=== PATIENT | male | born 1950 | race Caucasian/White ===

== ENCOUNTER 2017-01-18 22:55 | Emergency (ER) | payer MEDICARE, MEDICAID ==
[~2017-01-18] VITALS: Ht 180.3 cm; Wt 83.9 kg
[~2017-01-18 22:55] MED LIST: AZELASTINE137 MCG/A1 NS; FAMOTIDINE20 M1 PO; NAPROSYN500 MG PO; NISOLDIPINE40 MG PO; OXYCODONE HCL30 MG PO; PAROXETINE HCL40 MG PO
[2017-01-18 23:20] LABS: BASO % 0.3 % (0.0-1.0); EOS # 0.2 10*3/uL (0.0-0.4); EOS % 2.4 % (1.0-4.0); HEMATOCRIT 35.2 % (42.0-52.0); HEMOGLOBIN 11.7 g/dl (14.0-18.0); LYMPH # 1.6 10*3/uL (1.3-4.4); LYMPH % 25.3 % (27.0-41.0); MEAN CELL VOLUME 77.4 fl (80.0-94.0); MEAN CORPUSCULAR HGB 25.7 pg (27.0-31.0); MEAN CORPUSCULAR HGB CONC 33.2 g/dl (33.0-37.0); MEAN PLATELET VOLUME 8.6 fl (9.6-12.3); MONO # 0.4 10*3/uL (0.1-1.0); MONO % 6.1 % (3.0-9.0); NEUT # 4.1 10*3/uL (2.3-7.9); NEUT % 65.7 % (47.0-73.0); PLATELET COUNT AUTOMATED 171 10*3/uL (130-400); RED BLOOD COUNT 4.55 10*6/uL (4.50-5.90); WHITE BLOOD COUNT 6.2 10*3/uL (4.8-10.8)
[2017-01-18 23:35] LABS: INTERNATIONAL NORM RATIO 1.1 (2.0-3.5); PROTHROMBIN TIME 11.5 SECONDS (9.0-12.4)
[2017-01-18 23:36] LABS: ALBUMIN 3.9 gm/dl (3.1-4.5); ALKALINE PHOSPHATASE 74 U/L (45-117); BILIRUBIN, TOTAL 0.8 mg/dl (0.2-1.0); BUN 14 mg/dl (7-24); CARBON DIOXIDE 28 mmol/L (21-32); CHLORIDE 106 mmol/L (98-107); EST GLOM FILT AFRICAN AMERICAN 59 ml/min; GLUCOSE 129 mg/dL (65-99); MAGNESIUM 2.3 mg/dL (1.5-2.1); POTASSIUM 3.6 mmol/L (3.5-5.1); SGOT/AST 12 IU/L (3-35); SGPT/ALT 15 U/L (12-78); SODIUM 144 mmol/L (136-145); TOTAL PROTEIN 6.8 gm/dL (6.4-8.2)
[2017-01-18 23:39] LABS: TROPONIN I < 0.015 ng/ml (<0.045)
== END 2017-01-19 01:58 | disposition home or self-care (01) ==
LOC: ED 22:55
PROVIDERS: Emergency Medicine Emergency Medical Services
DX: K21.0 Gastro-esophageal reflux disease with esophagitis (principal); Z88.6 Allergy status to analgesic agent; Z88.8 Allergy status to other drugs, medicaments and biological substances; Z79.899 Other long term (current) drug therapy

== ENCOUNTER 2017-02-01 20:45 | Emergency (ER) | payer MEDICARE, MEDICAID ==
[~2017-02-01] VITALS: Ht 180.3 cm; Wt 84.8 kg
[2017-02-01] MEDS ORDERED: DEXILANT60 M1 PO (21:13)
[2017-02-01] MEDS ORDERED: ATIVAN1 MG PO (21:13)
[2017-02-01 21:52] LABS: BASO % 0.7 % (0.0-1.0); EOS # 0.2 10*3/uL (0.0-0.4); EOS % 3.4 % (1.0-4.0); HEMOGLOBIN 11.5 g/dl (14.0-18.0); LYMPH # 1.9 10*3/uL (1.3-4.4); LYMPH % 31.8 % (27.0-41.0); MEAN CELL VOLUME 77.8 fl (80.0-94.0); MEAN CORPUSCULAR HGB 25.6 pg (27.0-31.0); MEAN CORPUSCULAR HGB CONC 32.9 g/dl (33.0-37.0); MEAN PLATELET VOLUME 8.6 fl (9.6-12.3); MONO # 0.5 10*3/uL (0.1-1.0); MONO % 7.7 % (3.0-9.0); NEUT # 3.3 10*3/uL (2.3-7.9); NEUT % 56.1 % (47.0-73.0); PLATELET COUNT AUTOMATED 196 10*3/uL (130-400); RED CELL DISTRI WIDTH 13.8 % (0-14.5)
[2017-02-01 22:09] LABS: ALBUMIN 3.6 gm/dl (3.1-4.5); ALKALINE PHOSPHATASE 82 U/L (45-117); BILIRUBIN, TOTAL 0.5 mg/dl (0.2-1.0); BUN 14 mg/dl (7-24); CARBON DIOXIDE 28 mmol/L (21-32); CHLORIDE 107 mmol/L (98-107); EST GLOM FILT AFRICAN AMERICAN > 60 ml/min; GLUCOSE 95 mg/dL (65-99); POTASSIUM 4.2 mmol/L (3.5-5.1); SGOT/AST 13 IU/L (3-35); SGPT/ALT 19 U/L (12-78); SODIUM 144 mmol/L (136-145)
[2017-02-01 22:11] LABS: TROPONIN I < 0.015 ng/ml (<0.045)
[2017-02-01] MEDS ORDERED: PROTONIX40 MG PO (23:20)
== END 2017-02-01 23:33 | disposition home or self-care (01) ==
LOC: ED 20:45
PROVIDERS: Emergency Medicine Emergency Medical Services
DX: K21.9 Gastro-esophageal reflux disease without esophagitis (principal); Z88.6 Allergy status to analgesic agent; Z88.8 Allergy status to other drugs, medicaments and biological substances

== ENCOUNTER 2017-02-04 10:49 | Emergency (ER) | payer MEDICARE, MEDICAID ==
[~2017-02-04] VITALS: Ht 154.9 cm; Wt 86.2 kg
[~2017-02-04 10:49] MED LIST changes: +ATIVAN1 MG PO; +DEXILANT60 M1 PO; +PROTONIX40 MG PO
[2017-02-04 11:58] LABS: BASO % 0.4 % (0.0-1.0); EOS # 0.2 10*3/uL (0.0-0.4); HEMATOCRIT 37.1 % (42.0-52.0); HEMOGLOBIN 12.2 g/dl (14.0-18.0); LYMPH # 1.9 10*3/uL (1.3-4.4); LYMPH % 19.1 % (27.0-41.0); MEAN CELL VOLUME 77.9 fl (80.0-94.0); MEAN CORPUSCULAR HGB 25.6 pg (27.0-31.0); MEAN CORPUSCULAR HGB CONC 32.9 g/dl (33.0-37.0); MEAN PLATELET VOLUME 8.5 fl (9.6-12.3); MONO # 0.8 10*3/uL (0.1-1.0); MONO % 7.9 % (3.0-9.0); NEUT # 6.9 10*3/uL (2.3-7.9); NEUT % 70.3 % (47.0-73.0); PLATELET COUNT AUTOMATED 187 10*3/uL (130-400); RED BLOOD COUNT 4.76 10*6/uL (4.50-5.90); RED CELL DISTRI WIDTH 13.9 % (0-14.5); WHITE BLOOD COUNT 9.8 10*3/uL (4.8-10.8)
[2017-02-04 12:14] LABS: ALBUMIN 3.8 gm/dl (3.1-4.5); ALKALINE PHOSPHATASE 86 U/L (45-117); BILIRUBIN, TOTAL 0.8 mg/dl (0.2-1.0); BUN 14 mg/dl (7-24); C-REACTIVE PROTEIN 3.28 MG/DL (0-0.3); CARBON DIOXIDE 27 mmol/L (21-32); CHLORIDE 107 mmol/L (98-107); CKMB 1.4 ng/ml (0.5-3.6); CPK 78 U/L (39-308); EST GLOM FILT AFRICAN AMERICAN > 60 ml/min; GLUCOSE 96 mg/dL (65-99); MAGNESIUM 2.5 mg/dL (1.5-2.1); POTASSIUM 3.9 mmol/L (3.5-5.1); SGOT/AST 13 IU/L (3-35); SGPT/ALT 18 U/L (12-78); SODIUM 143 mmol/L (136-145); TOTAL PROTEIN 7.2 gm/dL (6.4-8.2)
[2017-02-04 12:15] LABS: TROPONIN I < 0.015 ng/ml (<0.045)
[2017-02-04] MEDS ORDERED: PREDNISONE20 M1 PO (15:14)
[2017-02-04] MEDS ORDERED: PEPCID20 MG PO (15:14)
[2017-02-04] MEDS ORDERED: ZITHROMAX250 MG PO (15:14)
== END 2017-02-04 15:20 | disposition home or self-care (01) ==
LOC: ED 10:49
PROVIDERS: Emergency Medicine
DX: S86.912A Strain of unspecified muscle(s) and tendon(s) at lower leg level, left leg, initial encounter (principal); J20.9 Acute bronchitis, unspecified; K21.9 Gastro-esophageal reflux disease without esophagitis; Z88.6 Allergy status to analgesic agent; Z88.8 Allergy status to other drugs, medicaments and biological substances; Z79.899 Other long term (current) drug therapy; X58.XXXA Exposure to other specified factors, initial encounter; Y93.89 Activity, other specified; Y92.9 Unspecified place or not applicable; Y99.9 Unspecified external cause status

== ENCOUNTER 2017-02-19 15:02 | Emergency (ER) | payer MEDICARE, MEDICAID ==
[~2017-02-19] VITALS: Wt 84.8 kg
[~2017-02-19 15:02] MED LIST changes: +PEPCID20 MG PO; +PREDNISONE20 M1 PO; +ZITHROMAX250 MG PO
[2017-02-19] MEDS ORDERED: GABAPENTIN100 M2 PO (15:20)
[2017-02-19] MEDS ORDERED: OMEPRAZOLE40 MG PO (15:20)
[2017-02-19] MEDS ORDERED: METOCLOPRAMIDE5 MG PO (15:20)
[2017-02-19 15:45] LABS: BASO % 0.6 % (0.0-1.0); EOS # 0.2 10*3/uL (0.0-0.4); EOS % 3.5 % (1.0-4.0); HEMATOCRIT 36.6 % (42.0-52.0); HEMOGLOBIN 12.3 g/dl (14.0-18.0); LYMPH # 1.7 10*3/uL (1.3-4.4); LYMPH % 27.1 % (27.0-41.0); MEAN CELL VOLUME 76.4 fl (80.0-94.0); MEAN CORPUSCULAR HGB 25.7 pg (27.0-31.0); MEAN CORPUSCULAR HGB CONC 33.6 g/dl (33.0-37.0); MEAN PLATELET VOLUME 8.5 fl (9.6-12.3); MONO # 0.5 10*3/uL (0.1-1.0); MONO % 7.7 % (3.0-9.0); NEUT # 3.8 10*3/uL (2.3-7.9); NEUT % 60.9 % (47.0-73.0); PLATELET COUNT AUTOMATED 184 10*3/uL (130-400); RED BLOOD COUNT 4.79 10*6/uL (4.50-5.90); RED CELL DISTRI WIDTH 13.5 % (0-14.5); WHITE BLOOD COUNT 6.2 10*3/uL (4.8-10.8)
[2017-02-19 16:02] LABS: ALBUMIN 3.8 gm/dl (3.1-4.5); ALKALINE PHOSPHATASE 76 U/L (45-117); BILIRUBIN, TOTAL 0.7 mg/dl (0.2-1.0); BUN 9 mg/dl (7-24); CARBON DIOXIDE 27 mmol/L (21-32); CHLORIDE 105 mmol/L (98-107); EST GLOM FILT AFRICAN AMERICAN > 60 ml/min; GLUCOSE 89 mg/dL (65-99); POTASSIUM 3.6 mmol/L (3.5-5.1); SGOT/AST 17 IU/L (3-35); SGPT/ALT 18 U/L (12-78); SODIUM 140 mmol/L (136-145); TOTAL PROTEIN 7.1 gm/dL (6.4-8.2)
[2017-02-19 16:04] LABS: TROPONIN I < 0.015 ng/ml (<0.045)
== END 2017-02-19 17:15 | disposition home or self-care (01) ==
LOC: ED 15:02
PROVIDERS: Physician Assistant
DX: R10.13 Epigastric pain (principal); K21.9 Gastro-esophageal reflux disease without esophagitis; R11.0 Nausea; Z88.6 Allergy status to analgesic agent; Z88.8 Allergy status to other drugs, medicaments and biological substances; Z79.899 Other long term (current) drug therapy

== ENCOUNTER 2017-02-25 20:23 | Emergency (ER) | payer MEDICARE, MEDICAID ==
[~2017-02-25] VITALS: Ht 180.3 cm; Wt 84.8 kg
[~2017-02-25 20:23] MED LIST changes: +GABAPENTIN100 M2 PO; +METOCLOPRAMIDE5 MG PO; +OMEPRAZOLE40 MG PO
[2017-02-25 21:03] LABS: BASO % 0.7 % (0.0-1.0); EOS # 0.2 10*3/uL (0.0-0.4); EOS % 4.2 % (1.0-4.0); HEMATOCRIT 36.9 % (42.0-52.0); HEMOGLOBIN 12.2 g/dl (14.0-18.0); LYMPH # 1.7 10*3/uL (1.3-4.4); LYMPH % 30.1 % (27.0-41.0); MEAN CELL VOLUME 77.7 fl (80.0-94.0); MEAN CORPUSCULAR HGB 25.7 pg (27.0-31.0); MEAN CORPUSCULAR HGB CONC 33.1 g/dl (33.0-37.0); MEAN PLATELET VOLUME 8.4 fl (9.6-12.3); MONO # 0.5 10*3/uL (0.1-1.0); MONO % 8.2 % (3.0-9.0); NEUT # 3.3 10*3/uL (2.3-7.9); NEUT % 56.6 % (47.0-73.0); PLATELET COUNT AUTOMATED 174 10*3/uL (130-400); RED BLOOD COUNT 4.75 10*6/uL (4.50-5.90); RED CELL DISTRI WIDTH 13.7 % (0-14.5); WHITE BLOOD COUNT 5.8 10*3/uL (4.8-10.8)
[2017-02-25 21:18] LABS: BILIRUBIN 1+ (NEGATIVE); BLOOD NEGATIVE (NEGATIVE); CLARITY SL CLOUDY (CLEAR); COLOR YELLOW (YELLOW); GLUCOSE NEGATIVE (NEGATIVE); KETONE TRACE (NEGATIVE); LEUKO ESTERASE NEGATIVE (NEGATIVE); NITRITE NEGATIVE (NEGATIVE); PH 5.5 (5.0-9.0); PROTEIN TRACE (NEGATIVE); SPECIFIC GRAVITY 1.025 (1.005-1.030)
[2017-02-25 21:18] LABS: ALBUMIN 3.6 gm/dl (3.1-4.5); BILIRUBIN, TOTAL 0.5 mg/dl (0.2-1.0)
[2017-02-25 21:24] LABS: HYALINE CAST 51-100
[2017-02-25 21:25] LABS: BACTERIA TRACE; EPITHELIAL CELLS 0-2; RBC 0-2 rbc/hpf (0-2); URINE REFLEX COMMENT NO (NO); WBC 0-2 wbc/hpf (0-5)
== END 2017-02-25 23:51 | disposition home or self-care (01) ==
LOC: ED 20:23
PROVIDERS: Physician Assistant
DX: M25.462 Effusion, left knee (principal); K21.9 Gastro-esophageal reflux disease without esophagitis; Z88.6 Allergy status to analgesic agent; Z88.8 Allergy status to other drugs, medicaments and biological substances; Z79.899 Other long term (current) drug therapy

== ENCOUNTER 2017-03-09 18:10 | Emergency (ER) | payer MEDICARE, MEDICAID ==
[~2017-03-09] VITALS: Wt 83.9 kg
[2017-03-09 18:41] LABS: BILIRUBIN NEGATIVE (NEGATIVE); BLOOD NEGATIVE (NEGATIVE); CLARITY CLEAR (CLEAR); COLOR YELLOW (YELLOW); GLUCOSE NEGATIVE (NEGATIVE); KETONE NEGATIVE (NEGATIVE); LEUKO ESTERASE NEGATIVE (NEGATIVE); NITRITE NEGATIVE (NEGATIVE); PROTEIN NEGATIVE (NEGATIVE); SPECIFIC GRAVITY 1.015 (1.005-1.030)
[2017-03-09 18:52] LABS: BACTERIA TRACE; HYALINE CAST 41-50; MUCOUS 1+
[2017-03-09 18:53] LABS: EPITHELIAL CELLS 0-2; URINE REFLEX COMMENT NO (NO); WBC 0-2 wbc/hpf (0-5)
[2017-03-09] MEDS ORDERED: NAPROSYN500 MG PO (19:04)
== END 2017-03-09 19:10 | disposition home or self-care (01) ==
LOC: ED 18:10
PROVIDERS: Physician Assistant
DX: M70.22 Olecranon bursitis, left elbow (principal); Z79.899 Other long term (current) drug therapy; Z88.6 Allergy status to analgesic agent; Z88.8 Allergy status to other drugs, medicaments and biological substances

== ENCOUNTER 2017-03-13 17:22 | Inpatient (IN) | payer MEDICARE, MEDICAID ==
[~2017-03-13] VITALS: Ht 180.3 cm; Wt 83.2 kg
--- NOTE | ~2017-03-13 | CON ---
[place], [place] REPORT OF CONSULTATION [id number] UN[facility] #: [id number] ROOM: 424 DOCTOR: DARIA QURESHI MD BIRTHDATE: [birth year] DOS: 03/14/2017 REASON FOR CONSULTATION: Assess the patient's ongoing acute respiratory complaints. HISTORY OF PRESENT ILLNESS: This is a 66-year-old white male who has been seen in the office recently for assessment of nonresolving cough, was diagnosed with cough variant bronchial asthma. The patient was seen in the office on 03/02/2017, started on inhaled corticosteroids and bronchodilators. The patient came in to the hospital and has been hospitalized under the Hospitalist services on 03/13/2017. The patient reported symptoms of having fever and chills. The patient denies any symptoms of chest pain. He does have a cough, which was still noted with some sputum expectoration. The patient also complained of sinus drainage with current symptoms as well. He denies symptoms of hemoptysis. REVIEW OF SYSTEMS: CONSTITUTIONAL: There were no symptoms of fatigue or tiredness. Fever or chills. EYES: Denies any burning, redness, or tenderness. EARS, NOSE, AND THROAT: No sore throat, hoarseness, otalgia, or postnasal drainage. CARDIOVASCULAR: Denies anginal pain, edema, or pain of the lower extremities. GASTROINTESTINAL: Denies dysphagia, nausea, vomiting, diarrhea, abdominal pain, hematemesis, melena, or hematochezia. SKIN: Denies lesions or rashes. CENTRAL NERVOUS SYSTEM: Denies dizziness, headache, diplopia, or syncopal episodes. Remaining systems were reviewed with the patient, they were noted all negative. PAST MEDICAL HISTORY: 1. History of vitamin D deficiency. 2. Essential hypertension. 3. Cough variant bronchial asthma. SOCIAL HISTORY: The patient is , has 2 children. The patient was noted tobacco use at 22 years old, 1/4 pack of cigarettes per day until 1969. He does have an occupation-related pulmonary exposure history. SURGICAL HISTORY: Noted with knee arthroscopy bilaterally. FAMILY HISTORY: Father at age 4848 years old, complications of myocardial infarction. The patient's mother at age 7878 years old from complications related to COPD. HOME MEDICATIONS: Listed at the time of admission noted use of: 1. QVAR 40 mcg 2 inhalations b.i.d. 2. OxyContin 30 mg t.i.d. p.r.n. for pain. 3. Reglan 7.5 mg p.o. daily. 4. Neurontin 100 mg p.o. daily. 5. Ventolin p.r.n. use. [place], [place] REPORT OF CONSULTATION NAME: RODNEY MONCADA UNIT #: [id number] ROOM: [facility] DOCTOR: ALHAJI BERMUDEZ MD,[facility] BIRTHDATE: [birth year] 6. Dexilant 60 mg daily. 7. Lorazepam 1 mg p.o. t.i.d. p.r.n. for anxiety. 8. Paxil 20 mg daily. 9. Nifedipine 40 mg p.o. daily. PHYSICAL EXAMINATION: GENERAL: This is a 66-year-old white male who has been noted currently awake and alert without any acute distress. The patient's height was recorded by the nursing staff at the time of admission with height of 5 feet 11 inches, weight of 183 pounds, BMI 25.5. VITAL SIGNS: Show a normal temperature, respiratory rate of 18-20, heart rate 97-77, and blood pressure 168/87-144/72. Intake 360, output not recorded. Pulse oxygen saturation was 99% HEENT: Shows head was atraumatic. Eyes nonicterus. NECK: Supple. CARDIOVASCULAR: S1, S2 audible. LUNGS: Show moderate decreased breath sounds noted in the lungs bilaterally. LABORATORY DATA: Chest x-ray of the patient that was done on current admission was noted without any active disease. BMP that was done this morning was noted as potassium 3.4, remaining electrolytes grossly normal. CBC this morning, WBC count 10.5, hemoglobin 10.2, hematocrit 31.2, and platelet count 191,000. PT/PTT was noted as normal today. Vitamin D noted severely decreased at 10.5 with normal vitamin B12 and folic acid. IMPRESSION: 1. The patient who has been currently admitted to the hospital with noted symptoms of fevers, chills, coughing, and acute bronchitis. There was no evidence of clinical radiologic pneumonia. 2. History of gastroesophageal reflux. 3. Cough variant bronchial asthma. 4. Acute anxiety and depression. 5. Past history of tobacco use. PLAN OF TREATMENT: Monitor culture results. Order serology assessment as well with nasopharyngeal washings. Continue bronchodilators as well. Home medications have been resumed including use of the inhaled corticosteroids. Continue current antibiotic for the medical management of acute tracheobronchitis, community-acquired infection. Usual care, other supportive therapy, plan of management. Change in treatment will be done based on the progression of the illness. [place], [place] REPORT OF CONSULTATION NAME: RODNEY MONCADA UNIT #: [id number] ROOM: [facility] DOCTOR: DARIA QURESHI MD BIRTHDATE: [birth year] DARIA MANE MD CM:CONSTR:REPORT OF CONSULTATION 1417 03/14/17 1709 interface
[2017-03-13 17:32] VITALS: BP 142/72
[2017-03-13 18:13] LABS: BASO # 0.1 10*3/uL (0.0-0.1); BASO % 0.3 % (0.0-1.0); EOS # 0.2 10*3/uL (0.0-0.4); HEMATOCRIT 34.6 % (42.0-52.0); HEMOGLOBIN 11.9 g/dl (14.0-18.0); IG # 0.1 10*3/uL (0.0-0.1); LYMPH # 1.6 10*3/uL (1.3-4.4); LYMPH % 9.2 % (27.0-41.0); MEAN CELL VOLUME 76.5 fl (80.0-94.0); MEAN CORPUSCULAR HGB 26.3 pg (27.0-31.0); MEAN CORPUSCULAR HGB CONC 34.4 g/dl (33.0-37.0); MEAN PLATELET VOLUME 8.1 fl (9.6-12.3); MONO # 0.9 10*3/uL (0.1-1.0); MONO % 5.4 % (3.0-9.0); NEUT # 14.5 10*3/uL (2.3-7.9); NEUT % 83.7 % (47.0-73.0); PLATELET COUNT AUTOMATED 184 10*3/uL (130-400); RED BLOOD COUNT 4.52 10*6/uL (4.50-5.90); RED CELL DISTRI WIDTH 13.2 % (0-14.5); WHITE BLOOD COUNT 17.3 10*3/uL (4.8-10.8)
[2017-03-13 18:32] LABS: ALBUMIN 3.5 gm/dl (3.1-4.5); ALKALINE PHOSPHATASE 89 U/L (45-117); BUN 10 mg/dl (7-24); CARBON DIOXIDE 28 mmol/L (21-32); CHLORIDE 104 mmol/L (98-107); EST GLOM FILT AFRICAN AMERICAN > 60 ml/min; GLUCOSE 94 mg/dL (65-99); POTASSIUM 3.4 mmol/L (3.5-5.1); SGOT/AST 11 IU/L (3-35); SGPT/ALT 13 U/L (12-78); SODIUM 138 mmol/L (136-145); TOTAL PROTEIN 6.9 gm/dL (6.4-8.2)
[2017-03-13 20:24] VITALS: BP 150/81
[2017-03-13 21:32] VITALS: BP 163/79
[2017-03-13] MEDS ORDERED: NISOLDIPINE40 MG PO (21:40)
[2017-03-13] MEDS ORDERED: QVAR8.7 GM INH (21:43)
[2017-03-13] MEDS ORDERED: PAROXETINE40 MG PO (21:44)
[2017-03-14] VITALS: BP 168/87
[2017-03-14 05:14] LABS: BUN 12 mg/dl (7-24); CARBON DIOXIDE 28 mmol/L (21-32); CHLORIDE 110 mmol/L (98-107); CHOLESTEROL 121 mg/dL (<200); EST GLOM FILT AFRICAN AMERICAN > 60 ml/min; FREE T4 1.13 ng/dl (0.76-1.46); GLUCOSE 105 mg/dL (65-99); HDL CHOLESTEROL 42 mg/dl (40-60); LDL CHOLESTEROL 52 mg/dL (9-159); MAGNESIUM 2.2 mg/dL (1.5-2.1); PHOSPHOROUS 3.3 mg/dL (2.5-4.9); POTASSIUM 3.4 mmol/L (3.5-5.1); SODIUM 144 mmol/L (136-145); TRIGLYCERIDES 133 mg/dl (<150); VLDL CHOLESTEROL 27 mg/dL (6-40)
[2017-03-14 05:20] LABS: THYROID STIM HORMONE (HS) 0.513 uIU/ml (0.358-4.75)
[2017-03-14 05:41] LABS: HEMOGLOBIN A1c 5.2 % (4.8-5.6)
[2017-03-14 06:05] LABS: BASO % 0.3 % (0.0-1.0); EOS # 0.2 10*3/uL (0.0-0.4); EOS % 1.4 % (1.0-4.0); HEMATOCRIT 31.2 % (42.0-52.0); HEMOGLOBIN 10.2 g/dl (14.0-18.0); LYMPH # 1.6 10*3/uL (1.3-4.4); LYMPH % 15.5 % (27.0-41.0); MEAN CELL VOLUME 78.8 fl (80.0-94.0); MEAN CORPUSCULAR HGB 25.8 pg (27.0-31.0); MEAN CORPUSCULAR HGB CONC 32.7 g/dl (33.0-37.0); MEAN PLATELET VOLUME 8.8 fl (9.6-12.3); MONO # 0.6 10*3/uL (0.1-1.0); MONO % 5.5 % (3.0-9.0); NEUT % 76.9 % (47.0-73.0); PLATELET COUNT AUTOMATED 191 10*3/uL (130-400); RED BLOOD COUNT 3.96 10*6/uL (4.50-5.90); RED CELL DISTRI WIDTH 13.3 % (0-14.5); WHITE BLOOD COUNT 10.5 10*3/uL (4.8-10.8)
[2017-03-14 06:16] LABS: INTERNATIONAL NORM RATIO 1.2 (2.0-3.5); PROTHROMBIN TIME 12.3 SECONDS (9.0-12.4)
[2017-03-14 06:21] LABS: VITAMIN D, 25-HYDROXY 10.5 ng/mL (30-100)
[2017-03-14 06:22] LABS: FOLIC ACID 6.35 ng/mL (>5.38)
[2017-03-14 08:00] VITALS: BP 158/67
[2017-03-14 12:00] VITALS: BP 150/79
[2017-03-14 16:00] VITALS: BP 169/74
[2017-03-14 20:00] VITALS: BP 150/73
== END 2017-03-14 22:16 | disposition left against medical advice (07) | DRG 202 ==
LOC: ED 17:22 → 4E 19:34 → EDHOLD 19:34 → 4E 19:44
PROVIDERS: Internal Medicine; Physician Assistant
DX: J20.9 Acute bronchitis, unspecified (principal); J45.901 Unspecified asthma with (acute) exacerbation; E83.51 Hypocalcemia; J45.991 Cough variant asthma; D50.9 Iron deficiency anemia, unspecified; E87.6 Hypokalemia; F32.9 Major depressive disorder, single episode, unspecified; F41.9 Anxiety disorder, unspecified; Z53.21 Procedure and treatment not carried out due to patient leaving prior to being seen by health care provider; K21.9 Gastro-esophageal reflux disease without esophagitis; Z88.6 Allergy status to analgesic agent; Z88.8 Allergy status to other drugs, medicaments and biological substances; Z83.6 Family history of other diseases of the respiratory system; Z82.49 Family history of ischemic heart disease and other diseases of the circulatory system; Z79.899 Other long term (current) drug therapy

== ENCOUNTER 2017-04-12 10:42 | Inpatient (IN) | payer MEDICARE, MEDICAID ==
[~2017-04-12] VITALS: Ht 175.2 cm; Wt 83.9 kg
--- NOTE | ~2017-04-12 | EKG ---
[place], [place] ELECTROCARDIOGRAM REPORT NAME: RODNEY MONCADA UNIT #: [id number] ROOM: 506 DOCTOR: ALHAJI BERMUDEZ MD,DARIA BIRTHDATE: [birth year] DOS: 04/12/2017 The electrocardiogram done on 04/12/2017 at 11:13 am. Mild sinus bradycardia noted with heart rate of 54 beats per minute. No changes of ischemia were noted. DARIA MANE MD CM:EKGRPT:ELECTROCARDIOGRAM REPORT 1214 1240 DARIA BERMUDEZ MD
[~2017-04-12 10:42] MED LIST changes: +PAROXETINE40 MG PO; +QVAR8.7 GM INH
[2017-04-12 10:51] VITALS: BP 174/77
[2017-04-12 11:16] LABS: BASO % 0.4 % (0.0-1.0); EOS # 0.3 10*3/uL (0.0-0.4); EOS % 3.9 % (1.0-4.0); HEMATOCRIT 32.5 % (42.0-52.0); HEMOGLOBIN 10.5 g/dl (14.0-18.0); LYMPH # 2.4 10*3/uL (1.3-4.4); MEAN CELL VOLUME 77.6 fl (80.0-94.0); MEAN CORPUSCULAR HGB 25.1 pg (27.0-31.0); MEAN CORPUSCULAR HGB CONC 32.3 g/dl (33.0-37.0); MEAN PLATELET VOLUME 8.2 fl (9.6-12.3); MONO # 0.7 10*3/uL (0.1-1.0); MONO % 8.9 % (3.0-9.0); NEUT # 4.1 10*3/uL (2.3-7.9); NEUT % 54.3 % (47.0-73.0); PLATELET COUNT AUTOMATED 156 10*3/uL (130-400); RED BLOOD COUNT 4.19 10*6/uL (4.50-5.90); RED CELL DISTRI WIDTH 13.2 % (0-14.5); WHITE BLOOD COUNT 7.5 10*3/uL (4.8-10.8)
[2017-04-12 11:24] LABS: INTERNATIONAL NORM RATIO 1.1 (2.0-3.5)
[2017-04-12 11:31] LABS: ALBUMIN 3.4 gm/dl (3.1-4.5); ALKALINE PHOSPHATASE 79 U/L (45-117); BUN 13 mg/dl (7-24); CHLORIDE 105 mmol/L (98-107); CKMB 1.1 ng/ml (0.5-3.6); CPK 47 U/L (39-308); CREATININE 1.02 mg/dL (0.70-1.30); LIPASE 188 U/L (73-393); MAGNESIUM 2.4 mg/dL (1.5-2.1); POTASSIUM 3.4 mmol/L (3.5-5.1); SGOT/AST 10 IU/L (3-35); SGPT/ALT 12 U/L (12-78); SODIUM 140 mmol/L (136-145); TOTAL PROTEIN 6.4 gm/dL (6.4-8.2)
[2017-04-12 11:32] LABS: ETHYL ALCOHOL < 3.0 mg/dl (<3); TROPONIN I < 0.015 ng/ml (<0.045)
--- NOTE | 2017-04-12 11:59 | NUR ---
PT STATES HAS AHD SOME RELIEF AFTER GI COCKTAIL.
[2017-04-12 12:38] VITALS: BP 130/81
--- NOTE | 2017-04-12 13:01 | NUR ---
Time: 1300 A 66 year old MALE admitted to 5E under services of DAVE PEREZ DO. Pt. arrived via bed from ER. Chief complaint: ACID REFLUX, ILEUS. DENNIS SHUKLA
--- NOTE | 2017-04-12 13:07 | NUR ---
PATIENT LEFT AGAINST MEDICAL ADVICE AT THIS TIME. TECHNICAL CLERK NOTIFIED. NOTIFIED. HEPLOCK REMOVED. PT AMBULATORY OFF FLOOR. DENNIS SHUKLA
== END 2017-04-12 13:07 | disposition left against medical advice (07) | DRG 390 ==
LOC: ED 10:42 → EDHOLD 12:20 → 5E 12:28
PROVIDERS: Internal Medicine; ADMIT Emergency Medicine
DX: K56.7 Ileus, unspecified (principal); I10 Essential (primary) hypertension; K21.9 Gastro-esophageal reflux disease without esophagitis; Z53.21 Procedure and treatment not carried out due to patient leaving prior to being seen by health care provider; Z88.5 Allergy status to narcotic agent; Z88.8 Allergy status to other drugs, medicaments and biological substances; Z79.899 Other long term (current) drug therapy; Z72.89 Other problems related to lifestyle; Z82.49 Family history of ischemic heart disease and other diseases of the circulatory system; Z83.6 Family history of other diseases of the respiratory system

== ENCOUNTER 2017-04-22 01:56 | Emergency (ER) | payer MEDICARE, MEDICAID ==
[~2017-04-22] VITALS: Ht 180.3 cm; Wt 83.9 kg
[2017-04-22 02:27] LABS: BASO % 0.5 % (0.0-1.0); EOS # 0.2 10*3/uL (0.0-0.4); EOS % 5.9 % (1.0-4.0); HEMATOCRIT 29.6 % (42.0-52.0); HEMOGLOBIN 9.8 g/dl (14.0-18.0); LYMPH # 1.5 10*3/uL (1.3-4.4); LYMPH % 39.2 % (27.0-41.0); MEAN CELL VOLUME 79.4 fl (80.0-94.0); MEAN CORPUSCULAR HGB 26.3 pg (27.0-31.0); MEAN CORPUSCULAR HGB CONC 33.1 g/dl (33.0-37.0); MEAN PLATELET VOLUME 8.3 fl (9.6-12.3); MONO # 0.3 10*3/uL (0.1-1.0); MONO % 7.6 % (3.0-9.0); NEUT # 1.7 10*3/uL (2.3-7.9); NEUT % 46.5 % (47.0-73.0); PLATELET COUNT AUTOMATED 171 10*3/uL (130-400); RED BLOOD COUNT 3.73 10*6/uL (4.50-5.90); RED CELL DISTRI WIDTH 13.4 % (0-14.5); WHITE BLOOD COUNT 3.7 10*3/uL (4.8-10.8)
[2017-04-22 02:41] LABS: ALBUMIN 3.3 gm/dl (3.1-4.5); ALKALINE PHOSPHATASE 83 U/L (45-117); BUN 13 mg/dl (7-24); CHLORIDE 107 mmol/L (98-107); CREATININE 1.09 mg/dL (0.70-1.30); LIPASE 171 U/L (73-393); POTASSIUM 3.7 mmol/L (3.5-5.1); SGOT/AST 15 IU/L (3-35); SGPT/ALT 14 U/L (12-78); SODIUM 139 mmol/L (136-145); TOTAL PROTEIN 6.2 gm/dL (6.4-8.2)
[2017-04-22] MEDS ORDERED: Zofran4 MG PO (02:51)
== END 2017-04-22 04:26 | disposition home or self-care (01) ==
LOC: ED 01:56
PROVIDERS: Student in an Organized Health Care Education/Training Program
DX: K21.9 Gastro-esophageal reflux disease without esophagitis (principal); R10.13 Epigastric pain; E78.00 Pure hypercholesterolemia, unspecified; I10 Essential (primary) hypertension; J45.909 Unspecified asthma, uncomplicated; Z90.89 Acquired absence of other organs; Z79.899 Other long term (current) drug therapy; Z88.5 Allergy status to narcotic agent; Z88.6 Allergy status to analgesic agent; Z88.8 Allergy status to other drugs, medicaments and biological substances

== ENCOUNTER 2017-04-28 22:32 | Emergency (ER) | payer MEDICARE, MEDICAID ==
[~2017-04-28] VITALS: Ht 180.3 cm; Wt 84.8 kg
[~2017-04-28 22:32] MED LIST changes: +Zofran4 MG PO
== END 2017-04-29 00:18 | disposition home or self-care (01) ==
LOC: ED 22:32
DX: K29.00 Acute gastritis without bleeding (principal); R09.81 Nasal congestion; K21.9 Gastro-esophageal reflux disease without esophagitis; Z88.6 Allergy status to analgesic agent; Z88.8 Allergy status to other drugs, medicaments and biological substances; Z79.899 Other long term (current) drug therapy

== ENCOUNTER 2017-05-03 04:16 | Emergency (ER) | payer MEDICARE, MEDICAID ==
[~2017-05-03] VITALS: Ht 180.3 cm; Wt 84.8 kg
[2017-05-03 05:08] LABS: BASO % 0.7 % (0.0-1.0); EOS # 0.2 10*3/uL (0.0-0.4); EOS % 4.7 % (1.0-4.0); HEMATOCRIT 32.2 % (42.0-52.0); HEMOGLOBIN 10.4 g/dl (14.0-18.0); LYMPH # 1.7 10*3/uL (1.3-4.4); LYMPH % 40.4 % (27.0-41.0); MEAN CELL VOLUME 78.5 fl (80.0-94.0); MEAN CORPUSCULAR HGB 25.4 pg (27.0-31.0); MEAN CORPUSCULAR HGB CONC 32.3 g/dl (33.0-37.0); MEAN PLATELET VOLUME 8.4 fl (9.6-12.3); MONO # 0.4 10*3/uL (0.1-1.0); MONO % 8.6 % (3.0-9.0); NEUT # 1.9 10*3/uL (2.3-7.9); NEUT % 45.4 % (47.0-73.0); PLATELET COUNT AUTOMATED 163 10*3/uL (130-400); RED CELL DISTRI WIDTH 13.2 % (0-14.5); WHITE BLOOD COUNT 4.3 10*3/uL (4.8-10.8)
[2017-05-03 05:23] LABS: ALBUMIN 3.5 gm/dl (3.1-4.5); ALKALINE PHOSPHATASE 79 U/L (45-117); BUN 12 mg/dl (7-24); CHLORIDE 105 mmol/L (98-107); CREATININE 1.11 mg/dL (0.70-1.30); LIPASE 159 U/L (73-393); POTASSIUM 3.8 mmol/L (3.5-5.1); SGOT/AST 16 IU/L (3-35); SGPT/ALT 16 U/L (12-78); SODIUM 141 mmol/L (136-145); TOTAL PROTEIN 6.6 gm/dL (6.4-8.2)
[2017-05-03 05:24] LABS: TROPONIN I < 0.015 ng/ml (<0.045)
[2017-05-03] MEDS ORDERED: PROTONIX40 MG PO ×2 (06:32→06:53)
[2017-05-03] MEDS ORDERED: KETOROLAC10 MG PO ×2 (06:32→06:53)
== END 2017-05-03 07:08 | disposition home or self-care (01) ==
LOC: ED 04:16
PROVIDERS: Emergency Medicine Emergency Medical Services
DX: K21.9 Gastro-esophageal reflux disease without esophagitis (principal); M19.90 Unspecified osteoarthritis, unspecified site; E78.00 Pure hypercholesterolemia, unspecified; I10 Essential (primary) hypertension; J45.909 Unspecified asthma, uncomplicated; Z90.89 Acquired absence of other organs; Z98.890 Other specified postprocedural states; Z79.899 Other long term (current) drug therapy; Z88.5 Allergy status to narcotic agent; Z88.6 Allergy status to analgesic agent; Z88.8 Allergy status to other drugs, medicaments and biological substances

== ENCOUNTER 2017-05-08 09:16 | Emergency (ER) | payer MEDICARE, MEDICAID ==
[~2017-05-08] VITALS: Wt 84.8 kg
[~2017-05-08 09:16] MED LIST changes: +KETOROLAC10 MG PO
[2017-05-08 09:50] LABS: BASO % 0.7 % (0.0-1.0); EOS # 0.2 10*3/uL (0.0-0.4); EOS % 3.9 % (1.0-4.0); HEMOGLOBIN 10.5 g/dl (14.0-18.0); LYMPH # 1.5 10*3/uL (1.3-4.4); LYMPH % 33.5 % (27.0-41.0); MEAN CORPUSCULAR HGB 24.8 pg (27.0-31.0); MEAN CORPUSCULAR HGB CONC 31.8 g/dl (33.0-37.0); MEAN PLATELET VOLUME 8.6 fl (9.6-12.3); MONO # 0.4 10*3/uL (0.1-1.0); MONO % 8.3 % (3.0-9.0); NEUT # 2.3 10*3/uL (2.3-7.9); NEUT % 53.4 % (47.0-73.0); PLATELET COUNT AUTOMATED 167 10*3/uL (130-400); RED BLOOD COUNT 4.23 10*6/uL (4.50-5.90); RED CELL DISTRI WIDTH 13.3 % (0-14.5); WHITE BLOOD COUNT 4.4 10*3/uL (4.8-10.8)
[2017-05-08 10:07] LABS: ALBUMIN 3.3 gm/dl (3.1-4.5); ALKALINE PHOSPHATASE 70 U/L (45-117); BUN 13 mg/dl (7-24); CHLORIDE 108 mmol/L (98-107); POTASSIUM 3.8 mmol/L (3.5-5.1); SGOT/AST 12 IU/L (3-35); SGPT/ALT 15 U/L (12-78); SODIUM 141 mmol/L (136-145); TOTAL PROTEIN 6.3 gm/dL (6.4-8.2)
[2017-05-08 10:11] LABS: TROPONIN I < 0.015 ng/ml (<0.045)
[2017-05-08] MEDS ORDERED: PROTONIX40 MG PO (10:24)
== END 2017-05-08 11:06 | disposition home or self-care (01) ==
LOC: ED 09:16
PROVIDERS: Physician Assistant
DX: K21.9 Gastro-esophageal reflux disease without esophagitis (principal); R05 Cough; R09.81 Nasal congestion; Z88.6 Allergy status to analgesic agent; Z88.8 Allergy status to other drugs, medicaments and biological substances; Z79.899 Other long term (current) drug therapy

== ENCOUNTER 2017-05-13 00:21 | Emergency (ER) | payer MEDICARE, MEDICAID ==
[~2017-05-13] VITALS: Ht 180.3 cm; Wt 86.2 kg
--- NOTE | ~2017-05-13 | EKG ---
[place], [place] ELECTROCARDIOGRAM REPORT NAME: RODNEY MONCADA UNIT #: [id number] ROOM: DOCTOR: HIMANSHU RODRIGUEZ MD BIRTHDATE: [birth year] DOS: 05/13/2017 TIME: 0105 hours. Normal sinus rhythm at 66 beats per minute with a single PVC. The tracing is within normal limits. No previous tracing is available for comparison. HIMANSHU RODRIGUEZ MD CM:EKGRPT:ELECTROCARDIOGRAM REPORT 1257 1413 HIMANSHU RODRIGUEZ MD
[2017-05-13] MEDS ORDERED: BLEPH-10 5 ML5 ML OP (01:10)
[2017-05-13] MEDS ORDERED: PERCOCET 5-3251 EACH PO (01:10)
== END 2017-05-13 01:24 | disposition home or self-care (01) ==
LOC: ED 00:21
DX: S05.01XA Injury of conjunctiva and corneal abrasion without foreign body, right eye, initial encounter (principal); J06.9 Acute upper respiratory infection, unspecified; K21.9 Gastro-esophageal reflux disease without esophagitis; E78.00 Pure hypercholesterolemia, unspecified; M19.90 Unspecified osteoarthritis, unspecified site; J45.909 Unspecified asthma, uncomplicated; Z79.899 Other long term (current) drug therapy; Z98.890 Other specified postprocedural states; Z90.89 Acquired absence of other organs; Z88.5 Allergy status to narcotic agent; Z88.6 Allergy status to analgesic agent; Z88.8 Allergy status to other drugs, medicaments and biological substances; X58.XXXA Exposure to other specified factors, initial encounter; Y93.89 Activity, other specified; Y92.89 Other specified places as the place of occurrence of the external cause; Y99.9 Unspecified external cause status

== ENCOUNTER 2017-05-18 23:40 | Emergency (ER) | payer MEDICARE, MEDICAID ==
[~2017-05-18] VITALS: Ht 180.3 cm; Wt 84.8 kg
[~2017-05-18 23:40] MED LIST changes: +BLEPH-10 5 ML5 ML OP; +PERCOCET 5-3251 EACH PO
[2017-05-19] MEDS ORDERED: CORICIDIN HBP1 EAC4 PO (00:18)
[2017-05-19] MEDS ORDERED: FLONASE ALLERG9.9 ML NAS (00:18)
== END 2017-05-19 01:46 | disposition home or self-care (01) ==
LOC: ED 23:40
DX: R05 Cough (principal); R09.81 Nasal congestion; K21.9 Gastro-esophageal reflux disease without esophagitis; Z88.6 Allergy status to analgesic agent

== ENCOUNTER 2017-06-12 21:45 | Emergency (ER) | payer MEDICARE, MEDICAID ==
[~2017-06-12] VITALS: Ht 180.3 cm; Wt 85.3 kg
[~2017-06-12 21:45] MED LIST changes: +CORICIDIN HBP1 EAC4 PO; +FLONASE ALLERG9.9 ML NAS
[2017-06-12 22:29] LABS: BASO % 0.6 % (0.0-1.0); EOS # 0.2 10*3/uL (0.0-0.4); EOS % 3.3 % (1.0-4.0); HEMATOCRIT 34.5 % (42.0-52.0); HEMOGLOBIN 11.4 g/dl (14.0-18.0); LYMPH # 1.3 10*3/uL (1.3-4.4); LYMPH % 24.4 % (27.0-41.0); MEAN CELL VOLUME 76.8 fl (80.0-94.0); MEAN CORPUSCULAR HGB 25.4 pg (27.0-31.0); MEAN PLATELET VOLUME 8.4 fl (9.6-12.3); MONO # 0.4 10*3/uL (0.1-1.0); MONO % 7.2 % (3.0-9.0); NEUT # 3.5 10*3/uL (2.3-7.9); NEUT % 64.3 % (47.0-73.0); PLATELET COUNT AUTOMATED 175 10*3/uL (130-400); RED BLOOD COUNT 4.49 10*6/uL (4.50-5.90); RED CELL DISTRI WIDTH 13.6 % (0-14.5); WHITE BLOOD COUNT 5.4 10*3/uL (4.8-10.8)
[2017-06-12 22:51] LABS: ALBUMIN 3.7 gm/dl (3.1-4.5); ALKALINE PHOSPHATASE 98 U/L (45-117); BUN 10 mg/dl (7-24); CHLORIDE 106 mmol/L (98-107); CREATININE 1.11 mg/dL (0.70-1.30); LIPASE 176 U/L (73-393); SGOT/AST 16 IU/L (3-35); SGPT/ALT 17 U/L (12-78); SODIUM 141 mmol/L (136-145); TOTAL PROTEIN 7.1 gm/dL (6.4-8.2)
== END 2017-06-13 00:43 | disposition home or self-care (01) ==
LOC: ED 21:45
PROVIDERS: Physician Assistant
DX: K21.9 Gastro-esophageal reflux disease without esophagitis (principal); Z90.49 Acquired absence of other specified parts of digestive tract; Z88.4 Allergy status to anesthetic agent; Z88.8 Allergy status to other drugs, medicaments and biological substances

== ENCOUNTER 2017-07-19 03:40 | Emergency (ER) | payer MEDICARE, MEDICAID ==
[~2017-07-19] VITALS: Ht 180.3 cm; Wt 84.8 kg
[2017-07-19] MEDS ORDERED: PROTONIX40 MG PO (06:09)
== END 2017-07-19 08:46 | disposition home or self-care (01) ==
LOC: ED 03:40
DX: K21.9 Gastro-esophageal reflux disease without esophagitis (principal); I10 Essential (primary) hypertension; E87.6 Hypokalemia; E78.00 Pure hypercholesterolemia, unspecified; G89.29 Other chronic pain; R05 Cough; Z90.89 Acquired absence of other organs; Z79.899 Other long term (current) drug therapy; Z88.6 Allergy status to analgesic agent; Z88.8 Allergy status to other drugs, medicaments and biological substances

== ENCOUNTER 2017-08-01 00:03 | Emergency (ER) | payer MEDICARE, MEDICAID ==
[~2017-08-01] VITALS: Ht 180.3 cm; Wt 85.3 kg
--- NOTE | ~2017-08-01 | EKG ---
[place], [place] ELECTROCARDIOGRAM REPORT NAME: RODNEY MONCADA UNIT #: [id number] ROOM: DOCTOR: HIMANSHU RODRIGUEZ MD BIRTHDATE: [birth year] DOS: 08/01/2017 TIME: 0032 hours. FINDINGS: 1. Normal sinus rhythm at 70 beats per minute. 2. The tracing is within normal limits. 3. No previous tracing is available for comparison. HIMANSHU RODRIGUEZ MD CM:EKGRPT:ELECTROCARDIOGRAM REPORT 0859 1033 HIMANSHU RODRIGUEZ MD
[2017-08-01 00:59] LABS: BASO % 0.5 % (0.0-1.0); EOS # 0.1 10*3/uL (0.0-0.4); EOS % 1.8 % (1.0-4.0); HEMATOCRIT 32.4 % (42.0-52.0); HEMOGLOBIN 10.8 g/dl (14.0-18.0); LYMPH # 1.3 10*3/uL (1.3-4.4); LYMPH % 19.1 % (27.0-41.0); MEAN CELL VOLUME 76.4 fl (80.0-94.0); MEAN CORPUSCULAR HGB 25.5 pg (27.0-31.0); MEAN CORPUSCULAR HGB CONC 33.3 g/dl (33.0-37.0); MEAN PLATELET VOLUME 8.2 fl (9.6-12.3); MONO # 0.3 10*3/uL (0.1-1.0); MONO % 5.1 % (3.0-9.0); NEUT # 4.8 10*3/uL (2.3-7.9); NEUT % 73.2 % (47.0-73.0); PLATELET COUNT AUTOMATED 179 10*3/uL (130-400); RED BLOOD COUNT 4.24 10*6/uL (4.50-5.90); RED CELL DISTRI WIDTH 13.2 % (0-14.5); WHITE BLOOD COUNT 6.5 10*3/uL (4.8-10.8)
[2017-08-01 01:16] LABS: ALBUMIN 3.6 gm/dl (3.1-4.5); ALKALINE PHOSPHATASE 94 U/L (45-117); BUN 11 mg/dl (7-24); CHLORIDE 107 mmol/L (98-107); CREATININE 1.04 mg/dL (0.70-1.30); LIPASE 121 U/L (73-393); POTASSIUM 3.9 mmol/L (3.5-5.1); SGOT/AST 12 IU/L (3-35); SGPT/ALT 16 U/L (12-78); SODIUM 140 mmol/L (136-145); TOTAL PROTEIN 6.7 gm/dL (6.4-8.2)
[2017-08-01 01:20] LABS: TROPONIN I < 0.015 ng/ml (<0.045)
[2017-08-01] MEDS ORDERED: LEVAQUIN750 M1 PO (01:29)
== END 2017-08-01 03:25 | disposition home or self-care (01) ==
LOC: ED 00:03
PROVIDERS: Student in an Organized Health Care Education/Training Program
DX: R10.13 Epigastric pain (principal); K21.9 Gastro-esophageal reflux disease without esophagitis; G89.29 Other chronic pain; I10 Essential (primary) hypertension; E78.00 Pure hypercholesterolemia, unspecified; Z88.6 Allergy status to analgesic agent; Z88.8 Allergy status to other drugs, medicaments and biological substances; Z79.899 Other long term (current) drug therapy; Z90.89 Acquired absence of other organs

== ENCOUNTER 2017-08-08 13:27 | Emergency (ER) | payer MEDICARE, MEDICAID ==
[~2017-08-08] VITALS: Ht 180.3 cm; Wt 83.9 kg
[~2017-08-08 13:27] MED LIST changes: +LEVAQUIN750 M1 PO
== END 2017-08-08 14:23 | disposition left against medical advice (07) ==
LOC: ED 13:27
DX: R11.2 Nausea with vomiting, unspecified (principal); K21.9 Gastro-esophageal reflux disease without esophagitis; Z98.890 Other specified postprocedural states; Z90.89 Acquired absence of other organs; Z79.899 Other long term (current) drug therapy; Z88.5 Allergy status to narcotic agent; Z88.6 Allergy status to analgesic agent; Z88.8 Allergy status to other drugs, medicaments and biological substances; Z53.21 Procedure and treatment not carried out due to patient leaving prior to being seen by health care provider

== ENCOUNTER 2017-08-09 01:13 | Emergency (ER) | payer MEDICARE, MEDICAID ==
[~2017-08-09] VITALS: Ht 154.9 cm; Wt 83.9 kg
== END 2017-08-09 01:55 | disposition home or self-care (01) ==
LOC: ED 01:13
DX: K21.9 Gastro-esophageal reflux disease without esophagitis (principal); J45.909 Unspecified asthma, uncomplicated; I10 Essential (primary) hypertension; E78.00 Pure hypercholesterolemia, unspecified; M19.90 Unspecified osteoarthritis, unspecified site; Z98.890 Other specified postprocedural states; Z79.899 Other long term (current) drug therapy; Z90.89 Acquired absence of other organs; Z88.5 Allergy status to narcotic agent; Z88.6 Allergy status to analgesic agent; Z88.8 Allergy status to other drugs, medicaments and biological substances

== ENCOUNTER 2017-08-31 03:30 | Emergency (ER) | payer MEDICARE, MEDICAID ==
[~2017-08-31] VITALS: Ht 180.3 cm; Wt 83.9 kg
[2017-08-31] MEDS ORDERED: REGLAN5 MG PO (06:26)
== END 2017-08-31 06:59 | disposition home or self-care (01) ==
LOC: ED 03:30
DX: K21.9 Gastro-esophageal reflux disease without esophagitis (principal); Z90.89 Acquired absence of other organs; Z98.890 Other specified postprocedural states; Z79.899 Other long term (current) drug therapy; Z88.5 Allergy status to narcotic agent; Z88.6 Allergy status to analgesic agent; Z88.8 Allergy status to other drugs, medicaments and biological substances

== ENCOUNTER 2017-09-10 21:13 | Emergency (ER) | payer MEDICARE, MEDICAID ==
[~2017-09-10] VITALS: Ht 180.3 cm; Wt 83.9 kg
[~2017-09-10 21:13] MED LIST changes: +REGLAN5 MG PO
== END 2017-09-10 22:10 | disposition home or self-care (01) ==
LOC: ED 21:13
DX: J32.9 Chronic sinusitis, unspecified (principal); K21.9 Gastro-esophageal reflux disease without esophagitis; Z90.89 Acquired absence of other organs; Z79.899 Other long term (current) drug therapy; Z88.5 Allergy status to narcotic agent; Z88.6 Allergy status to analgesic agent; Z88.8 Allergy status to other drugs, medicaments and biological substances

== ENCOUNTER 2017-09-20 06:23 | Emergency (ER) | payer MEDICARE, MEDICAID ==
[~2017-09-20] VITALS: Ht 180.3 cm; Wt 83.9 kg
[2017-09-20 07:33] LABS: BASO % 0.6 % (0.0-1.0); EOS # 0.1 10*3/uL (0.0-0.4); EOS % 1.9 % (1.0-4.0); HEMATOCRIT 31.7 % (42.0-52.0); HEMOGLOBIN 10.2 g/dl (14.0-18.0); LYMPH # 1.7 10*3/uL (1.3-4.4); LYMPH % 24.9 % (27.0-41.0); MEAN CELL VOLUME 77.3 fl (80.0-94.0); MEAN CORPUSCULAR HGB 24.9 pg (27.0-31.0); MEAN CORPUSCULAR HGB CONC 32.2 g/dl (33.0-37.0); MEAN PLATELET VOLUME 8.4 fl (9.6-12.3); MONO # 0.5 10*3/uL (0.1-1.0); MONO % 6.9 % (3.0-9.0); NEUT # 4.4 10*3/uL (2.3-7.9); NEUT % 65.4 % (47.0-73.0); PLATELET COUNT AUTOMATED 188 10*3/uL (130-400); RED CELL DISTRI WIDTH 14.3 % (0-14.5); WHITE BLOOD COUNT 6.7 10*3/uL (4.8-10.8)
[2017-09-20 07:49] LABS: ALBUMIN 3.5 gm/dl (3.1-4.5); ALKALINE PHOSPHATASE 86 U/L (45-117); BUN 12 mg/dl (7-24); CHLORIDE 106 mmol/L (98-107); CREATININE 1.04 mg/dL (0.70-1.30); POTASSIUM 3.8 mmol/L (3.5-5.1); SGOT/AST 11 IU/L (3-35); SGPT/ALT 17 U/L (12-78); SODIUM 142 mmol/L (136-145); TOTAL PROTEIN 6.3 gm/dL (6.4-8.2)
[2017-09-20 07:51] LABS: TROPONIN I < 0.015 ng/ml (<0.045)
[2017-09-20] MEDS ORDERED: CARAFATE1 G1 PO (09:15)
== END 2017-09-20 10:35 | disposition home or self-care (01) ==
LOC: ED 06:23
PROVIDERS: Family Medicine
DX: K29.70 Gastritis, unspecified, without bleeding (principal); R09.81 Nasal congestion; R09.89 Other specified symptoms and signs involving the circulatory and respiratory systems; R05 Cough; K21.9 Gastro-esophageal reflux disease without esophagitis; I10 Essential (primary) hypertension; M19.90 Unspecified osteoarthritis, unspecified site; Z88.8 Allergy status to other drugs, medicaments and biological substances; Z88.6 Allergy status to analgesic agent; Z79.899 Other long term (current) drug therapy

== ENCOUNTER 2017-09-28 15:01 | Emergency (ER) | payer MEDICARE, MEDICAID ==
[~2017-09-28] VITALS: Ht 180.3 cm; Wt 83.9 kg
[~2017-09-28 15:01] MED LIST changes: +CARAFATE1 G1 PO
== END 2017-09-28 16:28 | disposition home or self-care (01) ==
LOC: ED 15:01
DX: K21.9 Gastro-esophageal reflux disease without esophagitis (principal); Z90.89 Acquired absence of other organs; Z98.890 Other specified postprocedural states; Z88.5 Allergy status to narcotic agent; Z88.6 Allergy status to analgesic agent; Z88.8 Allergy status to other drugs, medicaments and biological substances

== ENCOUNTER 2017-10-18 02:04 | Emergency (ER) | payer MEDICARE, MEDICAID ==
[~2017-10-18] VITALS: Ht 180.3 cm; Wt 83.9 kg
== END 2017-10-18 02:15 | disposition home or self-care (01) ==
LOC: ED 02:04
DX: K21.9 Gastro-esophageal reflux disease without esophagitis (principal); I10 Essential (primary) hypertension; Z88.5 Allergy status to narcotic agent

== ENCOUNTER 2017-11-07 02:45 | Emergency (ER) | payer MEDICARE, MEDICAID ==
[~2017-11-07] VITALS: Ht 175.2 cm; Wt 81.6 kg
[2017-11-07 03:20] LABS: BASO % 0.5 % (0.0-1.0); EOS # 0.2 10*3/uL (0.0-0.4); EOS % 2.7 % (1.0-4.0); HEMATOCRIT 36.3 % (42.0-52.0); HEMOGLOBIN 11.7 g/dl (14.0-18.0); LYMPH # 1.6 10*3/uL (1.3-4.4); LYMPH % 25.3 % (27.0-41.0); MEAN CELL VOLUME 76.6 fl (80.0-94.0); MEAN CORPUSCULAR HGB 24.7 pg (27.0-31.0); MEAN CORPUSCULAR HGB CONC 32.2 g/dl (33.0-37.0); MEAN PLATELET VOLUME 8.7 fl (9.6-12.3); MONO # 0.5 10*3/uL (0.1-1.0); MONO % 7.7 % (3.0-9.0); NEUT # 4.1 10*3/uL (2.3-7.9); NEUT % 63.6 % (47.0-73.0); PLATELET COUNT AUTOMATED 177 10*3/uL (130-400); RED BLOOD COUNT 4.74 10*6/uL (4.50-5.90); WHITE BLOOD COUNT 6.4 10*3/uL (4.8-10.8)
[2017-11-07 03:36] LABS: ALBUMIN 3.9 gm/dl (3.1-4.5); ALKALINE PHOSPHATASE 90 U/L (45-117); BUN 14 mg/dl (7-24); CHLORIDE 104 mmol/L (98-107); CREATININE 1.08 mg/dL (0.70-1.30); LIPASE 166 U/L (73-393); POTASSIUM 3.9 mmol/L (3.5-5.1); SGOT/AST 22 IU/L (3-35); SGPT/ALT 16 U/L (12-78); SODIUM 137 mmol/L (136-145); TOTAL PROTEIN 7.1 gm/dL (6.4-8.2)
[2017-11-07] MEDS ORDERED: VENTOLIN 02.5 MG/3 M INH (03:36)
== END 2017-11-07 04:18 | disposition home or self-care (01) ==
LOC: ED 02:45
PROVIDERS: Student in an Organized Health Care Education/Training Program
DX: K21.9 Gastro-esophageal reflux disease without esophagitis (principal); R10.84 Generalized abdominal pain; I10 Essential (primary) hypertension; E78.00 Pure hypercholesterolemia, unspecified; M19.90 Unspecified osteoarthritis, unspecified site; J45.909 Unspecified asthma, uncomplicated; Z79.899 Other long term (current) drug therapy; Z88.5 Allergy status to narcotic agent; Z90.89 Acquired absence of other organs; Z88.6 Allergy status to analgesic agent; Z88.8 Allergy status to other drugs, medicaments and biological substances

== ENCOUNTER 2017-12-27 04:21 | Emergency (ER) | payer MEDICARE, MEDICAID ==
[~2017-12-27] VITALS: Ht 180.3 cm; Wt 83.9 kg
[~2017-12-27 04:21] MED LIST changes: +VENTOLIN 02.5 MG/3 M INH
[2017-12-27] MEDS ORDERED: PROTONIX40 MG PO (06:31)
== END 2017-12-27 06:35 | disposition home or self-care (01) ==
LOC: ED 04:21
DX: K21.9 Gastro-esophageal reflux disease without esophagitis (principal); E78.00 Pure hypercholesterolemia, unspecified; I10 Essential (primary) hypertension; M19.90 Unspecified osteoarthritis, unspecified site; J45.909 Unspecified asthma, uncomplicated; Z90.89 Acquired absence of other organs; Z98.890 Other specified postprocedural states; Z88.5 Allergy status to narcotic agent; Z88.6 Allergy status to analgesic agent; Z88.8 Allergy status to other drugs, medicaments and biological substances; Z79.899 Other long term (current) drug therapy

== ENCOUNTER 2018-01-26 23:56 | Emergency (ER) | payer MEDICARE, MEDICAID ==
[~2018-01-26] VITALS: Ht 177.8 cm; Wt 81.6 kg
[2018-01-27 00:46] LABS: BASO % 0.4 % (0.0-1.0); EOS # 0.1 10*3/uL (0.0-0.4); EOS % 1.3 % (1.0-4.0); HEMATOCRIT 35.5 % (42.0-52.0); HEMOGLOBIN 11.5 g/dl (14.0-18.0); LYMPH # 1.5 10*3/uL (1.3-4.4); LYMPH % 22.2 % (27.0-41.0); MEAN CELL VOLUME 80.1 fl (80.0-94.0); MEAN CORPUSCULAR HGB CONC 32.4 g/dl (33.0-37.0); MEAN PLATELET VOLUME 8.7 fl (9.6-12.3); MONO # 0.4 10*3/uL (0.1-1.0); MONO % 5.8 % (3.0-9.0); NEUT # 4.9 10*3/uL (2.3-7.9); PLATELET COUNT AUTOMATED 194 10*3/uL (130-400); RED BLOOD COUNT 4.43 10*6/uL (4.50-5.90); RED CELL DISTRI WIDTH 14.7 % (0-14.5); WHITE BLOOD COUNT 6.9 10*3/uL (4.8-10.8)
[2018-01-27 00:56] LABS: ALBUMIN 3.7 gm/dl (3.1-4.5); ALKALINE PHOSPHATASE 75 U/L (45-117); BUN 12 mg/dl (7-24); CHLORIDE 108 mmol/L (98-107); CREATININE 0.97 mg/dL (0.70-1.30); LIPASE 126 U/L (73-393); POTASSIUM 3.9 mmol/L (3.5-5.1); SGOT/AST 11 IU/L (3-35); SGPT/ALT 22 U/L (12-78); SODIUM 143 mmol/L (136-145); TOTAL PROTEIN 6.8 gm/dL (6.4-8.2)
[2018-01-27 00:57] LABS: TROPONIN I < 0.015 ng/ml (<0.045)
== END 2018-01-27 01:25 | disposition home or self-care (01) ==
LOC: ED 23:56
PROVIDERS: Emergency Medicine
DX: K21.9 Gastro-esophageal reflux disease without esophagitis (principal); R05 Cough; J32.9 Chronic sinusitis, unspecified; E78.00 Pure hypercholesterolemia, unspecified; I10 Essential (primary) hypertension; M19.90 Unspecified osteoarthritis, unspecified site; J45.909 Unspecified asthma, uncomplicated; Z90.89 Acquired absence of other organs; Z98.890 Other specified postprocedural states; Z88.5 Allergy status to narcotic agent; Z88.6 Allergy status to analgesic agent; Z79.899 Other long term (current) drug therapy

== ENCOUNTER 2018-01-31 11:33 | Emergency (ER) | payer MEDICARE, MEDICAID ==
[~2018-01-31] VITALS: Ht 180.3 cm; Wt 83.9 kg
== END 2018-01-31 12:48 | disposition home or self-care (01) ==
LOC: ED 11:33
DX: K21.9 Gastro-esophageal reflux disease without esophagitis (principal); E78.00 Pure hypercholesterolemia, unspecified; I10 Essential (primary) hypertension; M19.90 Unspecified osteoarthritis, unspecified site; J45.909 Unspecified asthma, uncomplicated; Z90.89 Acquired absence of other organs; Z98.890 Other specified postprocedural states; Z79.899 Other long term (current) drug therapy; Z88.5 Allergy status to narcotic agent; Z88.6 Allergy status to analgesic agent

== ENCOUNTER 2018-02-17 08:14 | Emergency (ER) | payer MEDICARE, MEDICAID ==
[~2018-02-17] VITALS: Ht 180.3 cm; Wt 83.9 kg
--- NOTE | ~2018-02-17 | EKG ---
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 Electronically Signed On 02-17-2018 12:06:25 PDT by Jaclyn Maria MD CM:EKGRPT:ELECTROCARDIOGRAM REPORT 0849 1206 DAVE NIELSON DRAFT REPORT DAVE CEBALLOS DO
[2018-02-17 08:57] LABS: BASO % 0.3 % (0.0-1.0); EOS # 0.1 10*3/uL (0.0-0.4); EOS % 1.1 % (1.0-4.0); HEMATOCRIT 36.8 % (42.0-52.0); LYMPH # 1.6 10*3/uL (1.3-4.4); LYMPH % 14.1 % (27.0-41.0); MEAN CORPUSCULAR HGB 25.8 pg (27.0-31.0); MEAN CORPUSCULAR HGB CONC 32.6 g/dl (33.0-37.0); MEAN PLATELET VOLUME 8.2 fl (9.6-12.3); MONO # 0.7 10*3/uL (0.1-1.0); NEUT # 8.8 10*3/uL (2.3-7.9); NEUT % 78.1 % (47.0-73.0); PLATELET COUNT AUTOMATED 142 10*3/uL (130-400); RED BLOOD COUNT 4.66 10*6/uL (4.50-5.90); RED CELL DISTRI WIDTH 14.1 % (0-14.5); WHITE BLOOD COUNT 11.3 10*3/uL (4.8-10.8)
[2018-02-17 09:08] LABS: ACT PARTIAL THROMBO TIME 25.1 SECONDS (20.8-31.5)
[2018-02-17 09:11] LABS: ALBUMIN 3.8 gm/dl (3.1-4.5); ALKALINE PHOSPHATASE 78 U/L (45-117); BUN 11 mg/dl (7-24); CHLORIDE 106 mmol/L (98-107); CREATININE 1.03 mg/dL (0.70-1.30); LIPASE 131 U/L (73-393); POTASSIUM 3.7 mmol/L (3.5-5.1); SGOT/AST 13 IU/L (3-35); SGPT/ALT 17 U/L (12-78); SODIUM 139 mmol/L (136-145)
[2018-02-17 09:12] LABS: TROPONIN I < 0.015 ng/ml (<0.045)
[2018-02-17] MEDS ORDERED: PEPCID20 MG PO (10:49)
== END 2018-02-17 10:54 | disposition home or self-care (01) ==
LOC: ED 08:14
PROVIDERS: Emergency Medicine
DX: K29.70 Gastritis, unspecified, without bleeding (principal); K21.9 Gastro-esophageal reflux disease without esophagitis; I10 Essential (primary) hypertension; M19.90 Unspecified osteoarthritis, unspecified site; Z79.899 Other long term (current) drug therapy; Z88.6 Allergy status to analgesic agent; Z88.8 Allergy status to other drugs, medicaments and biological substances

== ENCOUNTER 2018-03-20 20:57 | Emergency (ER) | payer MEDICARE, MEDICAID ==
[~2018-03-20] VITALS: Ht 180.3 cm; Wt 83.9 kg
[2018-03-20] MEDS ORDERED: PREDNISONE50 MG PO (21:42)
== END 2018-03-20 21:51 | disposition home or self-care (01) ==
LOC: ED 20:57
DX: M25.562 Pain in left knee (principal); M19.90 Unspecified osteoarthritis, unspecified site; K21.9 Gastro-esophageal reflux disease without esophagitis; Z88.6 Allergy status to analgesic agent; Z88.8 Allergy status to other drugs, medicaments and biological substances; Z79.899 Other long term (current) drug therapy

== ENCOUNTER 2018-05-17 03:46 | Emergency (ER) | payer MEDICARE, MEDICAID ==
[~2018-05-17] VITALS: Ht 180.3 cm; Wt 81.6 kg
--- NOTE | ~2018-05-17 | EKG ---
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
[~2018-05-17 03:46] MED LIST changes: +PREDNISONE50 MG PO
[2018-05-17 04:47] LABS: BASO % 0.7 % (0.0-1.0); EOS # 0.1 10*3/uL (0.0-0.4); EOS % 2.8 % (1.0-4.0); HEMATOCRIT 35.4 % (42.0-52.0); HEMOGLOBIN 11.9 g/dl (14.0-18.0); LYMPH # 1.2 10*3/uL (1.3-4.4); LYMPH % 27.2 % (27.0-41.0); MEAN CELL VOLUME 77.8 fl (80.0-94.0); MEAN CORPUSCULAR HGB 26.2 pg (27.0-31.0); MEAN CORPUSCULAR HGB CONC 33.6 g/dl (33.0-37.0); MEAN PLATELET VOLUME 8.6 fl (9.6-12.3); MONO # 0.3 10*3/uL (0.1-1.0); MONO % 7.4 % (3.0-9.0); NEUT # 2.7 10*3/uL (2.3-7.9); NEUT % 61.7 % (47.0-73.0); PLATELET COUNT AUTOMATED 154 10*3/uL (130-400); RED BLOOD COUNT 4.55 10*6/uL (4.50-5.90); RED CELL DISTRI WIDTH 14.1 % (0-14.5); WHITE BLOOD COUNT 4.3 10*3/uL (4.8-10.8)
[2018-05-17 05:06] LABS: ALBUMIN 3.3 gm/dl (3.1-4.5); ALKALINE PHOSPHATASE 85 U/L (45-117); BUN 13 mg/dl (7-24); CHLORIDE 107 mmol/L (98-107); CREATININE 0.99 mg/dL (0.70-1.30); LIPASE 220 U/L (73-393); POTASSIUM 3.5 mmol/L (3.5-5.1); SGOT/AST 19 IU/L (3-35); SGPT/ALT 21 U/L (12-78); SODIUM 142 mmol/L (136-145); TOTAL PROTEIN 6.8 gm/dL (6.4-8.2)
[2018-05-17 05:10] LABS: TROPONIN I < 0.015 ng/ml (<0.045)
== END 2018-05-17 06:06 | disposition home or self-care (01) ==
LOC: ED 03:46
PROVIDERS: Emergency Medicine
DX: K21.9 Gastro-esophageal reflux disease without esophagitis (principal); I10 Essential (primary) hypertension; Z88.5 Allergy status to narcotic agent; Z88.8 Allergy status to other drugs, medicaments and biological substances; Z79.899 Other long term (current) drug therapy; Z98.890 Other specified postprocedural states

== ENCOUNTER 2018-08-15 12:21 | Inpatient (IN) | payer MEDICARE, MEDICAID ==
[~2018-08-15] VITALS: Ht 180.3 cm; Wt 80.3 kg
--- NOTE | ~2018-08-15 | EKG ---
[place], [place] ELECTROCARDIOGRAM REPORT NAME: RODNEY MONCADA UNIT #: [id number] ROOM: [facility] DOCTOR: GURMEET DRAFT REPORT BIRTHDATE: [birth year] 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
[~2018-08-15 12:21] MED LIST changes: +OXYCODONE HCL15 MG PO; -OXYCODONE HCL30 MG PO
[2018-08-15 12:23] VITALS: BP 190/97
[2018-08-15 12:46] LABS: BASO % 0.5 % (0.0-1.0); EOS # 0.2 10*3/uL (0.0-0.4); EOS % 4.1 % (1.0-4.0); HEMATOCRIT 34.4 % (42.0-52.0); HEMOGLOBIN 11.3 g/dl (14.0-18.0); LYMPH # 1.3 10*3/uL (1.3-4.4); LYMPH % 22.6 % (27.0-41.0); MEAN CELL VOLUME 80.2 fl (80.0-94.0); MEAN CORPUSCULAR HGB 26.3 pg (27.0-31.0); MEAN CORPUSCULAR HGB CONC 32.8 g/dl (33.0-37.0); MEAN PLATELET VOLUME 8.1 fl (9.6-12.3); MONO # 0.5 10*3/uL (0.1-1.0); MONO % 8.8 % (3.0-9.0); NEUT # 3.8 10*3/uL (2.3-7.9); NEUT % 63.7 % (47.0-73.0); PLATELET COUNT AUTOMATED 206 10*3/uL (130-400); RED BLOOD COUNT 4.29 10*6/uL (4.50-5.90); RED CELL DISTRI WIDTH 13.7 % (0-14.5); WHITE BLOOD COUNT 5.9 10*3/uL (4.8-10.8)
[2018-08-15 12:55] LABS: ACT PARTIAL THROMBO TIME 27.2 SECONDS (20.8-31.5); INTERNATIONAL NORM RATIO 1.1 (2.0-3.5)
[2018-08-15 13:02] LABS: ALBUMIN 3.5 gm/dl (3.1-4.5); ALKALINE PHOSPHATASE 120 U/L (45-117); BUN 10 mg/dl (7-24); CHLORIDE 105 mmol/L (98-107); CREATININE 1.09 mg/dL (0.70-1.30); LIPASE 106 U/L (73-393); POTASSIUM 3.4 mmol/L (3.5-5.1); SGOT/AST 21 IU/L (3-35); SGPT/ALT 21 U/L (12-78); SODIUM 140 mmol/L (136-145); TOTAL PROTEIN 7.2 gm/dL (6.4-8.2)
[2018-08-15 13:03] LABS: TROPONIN I < 0.015 ng/ml (<0.045)
[2018-08-15 14:15] VITALS: BP 186/86
[2018-08-15 16:00] VITALS: BP 159/72
[2018-08-15] MEDS ORDERED: ALLOPURINOL300 MG PO (17:31)
[2018-08-15] MEDS ORDERED: ARNUITY ELLIPT50 MCG NAS (17:34)
[2018-08-15] MEDS ORDERED: METOCLOPRAMIDE5 MG PO (17:36)
[2018-08-15] MEDS ORDERED: NISOLDIPINE PO (17:37)
[2018-08-15] MEDS ORDERED: PULMICORT FLE180 MCG INH (17:39)
[2018-08-15] MEDS ORDERED: MIRALAX17 GM PO (17:59)
[2018-08-15 20:00] VITALS: BP 166/78
[2018-08-15 22:13] LABS: BILIRUBIN NEGATIVE (NEGATIVE); BLOOD NEGATIVE (NEGATIVE); CLARITY CLEAR (CLEAR); COLOR YELLOW (YELLOW); GLUCOSE NEGATIVE (NEGATIVE); KETONE NEGATIVE (NEGATIVE); LEUKO ESTERASE NEGATIVE (NEGATIVE); NITRITE NEGATIVE (NEGATIVE); PH 6.5 (5.0-9.0); UROBILINOGEN 0.2 E.U./dl (0.2-1.0)
[2018-08-15 22:23] LABS: URINE AMPHETAMINES < 1000 (1000ng/ml); URINE BARBITURATES > 200 (200ng/ml); URINE BENZODIAZEPINES < 200 (200ng/ml); URINE CANNABINOIDS (THC) < 50 (50ng/ml); URINE COCAINE < 300 (300ng/ml); URINE METHADONE < 300 (300ng/ml); URINE OPIATES > 300 (300ng/ml); URINE PHENCYCLIDINE < 25 (25ng/ml)
[2018-08-15 22:27] LABS: BACTERIA TRACE; WBC 0-2 wbc/hpf (0-5)
[2018-08-16] VITALS: BP 186/92
[2018-08-16 03:00] VITALS: BP 192/94
[2018-08-16 07:07] LABS: BASO % 0.4 % (0.0-1.0); EOS # 0.2 10*3/uL (0.0-0.4); EOS % 3.7 % (1.0-4.0); HEMATOCRIT 30.7 % (42.0-52.0); HEMOGLOBIN 9.7 g/dl (14.0-18.0); LYMPH % 20.2 % (27.0-41.0); MEAN CELL VOLUME 80.2 fl (80.0-94.0); MEAN CORPUSCULAR HGB 25.3 pg (27.0-31.0); MEAN CORPUSCULAR HGB CONC 31.6 g/dl (33.0-37.0); MEAN PLATELET VOLUME 8.7 fl (9.6-12.3); MONO # 0.3 10*3/uL (0.1-1.0); NEUT # 3.3 10*3/uL (2.3-7.9); NEUT % 68.5 % (47.0-73.0); PLATELET COUNT AUTOMATED 179 10*3/uL (130-400); RED BLOOD COUNT 3.83 10*6/uL (4.50-5.90); RED CELL DISTRI WIDTH 13.6 % (0-14.5); WHITE BLOOD COUNT 4.9 10*3/uL (4.8-10.8)
[2018-08-16 07:39] LABS: BUN 7 mg/dl (7-24); CHLORIDE 111 mmol/L (98-107); CHOLESTEROL 109 mg/dL (<200); CREATININE 0.82 mg/dL (0.70-1.30); FREE T4 1.14 ng/dl (0.76-1.46); HDL CHOLESTEROL 53 mg/dl (40-60); LDL CHOLESTEROL 43 mg/dL (9-159); PHOSPHOROUS 3.2 mg/dL (2.5-4.9); POTASSIUM 3.7 mmol/L (3.5-5.1); SODIUM 145 mmol/L (136-145); TRIGLYCERIDES 63 mg/dl (<150); VLDL CHOLESTEROL 13 mg/dL (6-40)
[2018-08-16 07:46] LABS: THYROID STIM HORMONE (HS) 0.358 uIU/ml (0.358-4.75)
[2018-08-16 08:00] VITALS: BP 200/100
[2018-08-16 08:38] LABS: VITAMIN D, 25-HYDROXY 16.5 ng/mL (30-100)
[2018-08-16 10:23] VITALS: BP 120/52
[2018-08-16 12:00] VITALS: BP 123/57
[2018-08-16] MEDS ORDERED: LEVOFLOXACIN500 MG PO (16:21)
[2018-08-17] MEDS ORDERED: AUGMENTIN 875875 MG PO (04:30)
[2019-02-22] MEDS ORDERED: AVPAK AZITHROM250 M1 PO (02:46)
[2019-02-22] MEDS ORDERED: TESSALON PERLE100 MG PO (02:46)
== END 2018-08-16 17:12 | disposition home health service (06) | DRG 305 ==
LOC: ED 12:21 → EDHOLD 14:07 → 5E 14:07
PROVIDERS: Emergency Medicine; Internal Medicine; ADMIT Internal Medicine
DX: I16.1 Hypertensive emergency (principal); E83.41 Hypermagnesemia; M19.90 Unspecified osteoarthritis, unspecified site; K21.9 Gastro-esophageal reflux disease without esophagitis; I10 Essential (primary) hypertension; F41.9 Anxiety disorder, unspecified; G89.29 Other chronic pain; M10.9 Gout, unspecified; D64.9 Anemia, unspecified; E55.9 Vitamin D deficiency, unspecified; K59.00 Constipation, unspecified; E87.6 Hypokalemia; J45.991 Cough variant asthma

== ENCOUNTER 2018-08-17 03:31 | Emergency (ER) | payer MEDICARE, MEDICAID ==
[~2018-08-17] VITALS: Ht 180.3 cm; Wt 82.6 kg
[~2018-08-17 03:31] MED LIST changes: +ALLOPURINOL300 MG PO; +ARNUITY ELLIPT50 MCG NAS; +LEVOFLOXACIN500 MG PO; +MIRALAX17 GM PO; +NISOLDIPINE PO; +PULMICORT FLE180 MCG INH
[2018-08-17] MEDS ORDERED: AUGMENTIN 875875 MG PO (04:30)
== END 2018-08-17 04:58 | disposition home or self-care (01) ==
LOC: ED 03:31
DX: R11.0 Nausea (principal); R45.0 Nervousness; R06.02 Shortness of breath; T36.95XA Adverse effect of unspecified systemic antibiotic, initial encounter; J32.9 Chronic sinusitis, unspecified; G89.29 Other chronic pain; K21.9 Gastro-esophageal reflux disease without esophagitis; I10 Essential (primary) hypertension; Z88.5 Allergy status to narcotic agent; Z88.8 Allergy status to other drugs, medicaments and biological substances; Z88.1 Allergy status to other antibiotic agents; Z79.2 Long term (current) use of antibiotics; Z79.899 Other long term (current) drug therapy; Y92.89 Other specified places as the place of occurrence of the external cause

== ENCOUNTER 2018-08-28 02:57 | Inpatient (IN) | payer MEDICARE, MEDICAID ==
[2018-08-28] VITALS (14 sets, daily range): BP systolic 146–208; BP diastolic 79–115
[~2018-08-28] VITALS: Ht 154.9 cm; Wt 74.6 kg
--- NOTE | ~2018-08-28 | EKG ---
[place], [place] ELECTROCARDIOGRAM REPORT NAME: RODNEY MONCADA UNIT #: [id number] ROOM: 403 DOCTOR: GURMEET DRAFT REPORT BIRTHDATE: [birth year] [facility] Test Date: 2018-08-28 Test Time: 09:03:57 Pat Name: RODNEY MONCADA Department: Room: 403 Gender: M Radiology Therapist: Peggy Shepard : 1950 Requested By: JUANITA ANDREW Order Number: [id number] Reading MD: Temo Hernandez MD Measurements Intervals [place] Rate: 68 P: AL: QRS: 60 QRSD: 97 T: 126 QT: 392 QTc: 418 Interpretive Statements Sinus rhythm Probable LVH with secondary repol abnrm Inferior ST elevation, possibly due to acute infarction Compared to ECG 08/15/2018 12:31:[address] elevation now present Electronically Signed On 08-28-2018 15:59:45 PST by Temo Hernandez MD CM:EKGRPT:ELECTROCARDIOGRAM REPORT 1559 JUANITA NIELSON DRAFT REPORT JUANITA ANDREW DO
--- NOTE | ~2018-08-28 | EKG ---
[place], [place] ELECTROCARDIOGRAM REPORT NAME: RODNEY MONCADA UNIT #: [id number] ROOM: 403 DOCTOR: GURMEET DRAFT REPORT BIRTHDATE: [birth year] [facility] Test Date: 2018-08-28 Test Time: 11:33:02 Pat Name: RODNEY MONCADA Department: Room: 403 1 Gender: M Recoater: Peggy Shepard : 1950 Requested By: HORTENSIA VIGIL Order Number: [id number] Reading MD: Temo Hernandez MD Measurements Intervals [place] Rate: 70 P: 63 MT: 179 QRS: 23 QRSD: 105 T: 32 QT: 448 QTc: 484 Interpretive Statements Sinus rhythm Probable left ventricular hypertrophy Baseline wander in lead(s) V2 Compared to earlier ECG this date Inferior ST elevation is no longer seen, and may have been artifactual Electronically Signed On 08-28-2018 16:04:28 PST by Temo Hernandez MD CM:EKGRPT:ELECTROCARDIOGRAM REPORT 1133 1604 HORTENSIA NIELSON DRAFT REPORT HORTENSIA VIGIL DO
--- NOTE | ~2018-08-28 | EKG ---
[place], [place] ELECTROCARDIOGRAM REPORT NAME: RODNEY MONCADA UNIT #: [id number] ROOM: 403 DOCTOR: GURMEET DRAFT REPORT BIRTHDATE: [birth year] [facility] Test Date: 2018-08-28 Test Time: 15:00:08 Pat Name: RODNEY MONCADA Department: Room: 403 1 Gender: M Infrastructure Director: 18 : 1950 Requested By: HORTENSIA VIGIL Order Number: [id number] Reading MD: Temo Hernandez MD Measurements Intervals [place] Rate: 73 P: 40 [place]: 179 QRS: 27 QRSD: 103 T: 39 QT: 419 QTc: 462 Interpretive Statements Sinus rhythm Baseline wander in lead(s) V3 Compared to earlier ECG this date No significant changes Electronically Signed On 08-28-2018 16:06:00 PST by Temo Hernandez MD CM:EKGRPT:ELECTROCARDIOGRAM REPORT [id number] 1606 HORTENSIA NIELSON DRAFT REPORT HORTENSIA VIGIL DO
[~2018-08-28 02:57] MED LIST changes: +AUGMENTIN 875875 MG PO
--- NOTE | 2018-08-28 03:46 | NUR ---
PT ALERT TO PLACE AND TIME PT UNABLE TO RECALL MED LIST PT TO CALL SOMEONE TO GIVE MED LIST, PERSON PT CALLED UNABLE TO FIND MEDS, PT EQUAL ELECTRONIC CONTROLS REPAIRER SUPERVISOR SPEECH CLEAR EQUAL ELECTRONIC CONTROLS REPAIRER SUPERVISOR NO NOTED FACIAL DROOP SMILE EQUAL BILAT
[2018-08-28 03:55] LABS: BASO % 0.5 % (0.0-1.0); EOS # 0.1 10*3/uL (0.0-0.4); EOS % 0.9 % (1.0-4.0); HEMATOCRIT 40.1 % (42.0-52.0); LYMPH # 0.9 10*3/uL (1.3-4.4); LYMPH % 10.9 % (27.0-41.0); MEAN CORPUSCULAR HGB 25.9 pg (27.0-31.0); MEAN CORPUSCULAR HGB CONC 32.4 g/dl (33.0-37.0); MEAN PLATELET VOLUME 8.1 fl (9.6-12.3); MONO # 0.6 10*3/uL (0.1-1.0); MONO % 7.5 % (3.0-9.0); NEUT # 6.8 10*3/uL (2.3-7.9); NEUT % 79.8 % (47.0-73.0); PLATELET COUNT AUTOMATED 216 10*3/uL (130-400); RED BLOOD COUNT 5.01 10*6/uL (4.50-5.90); RED CELL DISTRI WIDTH 14.2 % (0-14.5); WHITE BLOOD COUNT 8.5 10*3/uL (4.8-10.8)
[2018-08-28 04:11] LABS: ALBUMIN 4.1 gm/dl (3.1-4.5); ALKALINE PHOSPHATASE 116 U/L (45-117); BUN 8 mg/dl (7-24); CHLORIDE 104 mmol/L (98-107); CREATININE 0.99 mg/dL (0.70-1.30); POTASSIUM 3.7 mmol/L (3.5-5.1); SGOT/AST 15 IU/L (3-35); SGPT/ALT 17 U/L (12-78); SODIUM 138 mmol/L (136-145); TOTAL PROTEIN 7.9 gm/dL (6.4-8.2)
[2018-08-28 04:12] LABS: ETHYL ALCOHOL < 3.0 mg/dl (<3); TROPONIN I < 0.015 ng/ml (<0.045)
--- NOTE | 2018-08-28 04:13 | NUR ---
PT STATES HE HAS FRONTAL HEADACHE FOR APROX [address] HAYES
[2018-08-28 05:12] LABS: URINE AMPHETAMINES < 1000 (1000ng/ml); URINE BARBITURATES < 200 (200ng/ml); URINE BENZODIAZEPINES < 200 (200ng/ml); URINE CANNABINOIDS (THC) < 50 (50ng/ml); URINE COCAINE < 300 (300ng/ml); URINE METHADONE < 300 (300ng/ml); URINE OPIATES < 300 (300ng/ml)
[2018-08-28 05:16] LABS: URINE PHENCYCLIDINE < 25 (25ng/ml)
--- NOTE | 2018-08-28 05:59 | NUR ---
PT STATES HEADACHE IS RELIEVED FAMILY NOW AT BEDSIDE BED IN LOWEST POSITION BED CALL QUIÑONES IN REACH
--- NOTE | 2018-08-28 06:14 | NUR ---
PT NOW SLEEPING IN BED FAMILY AT BEDSIDE RESP 24 NONLABORED PULSE OX 96% RA
[2018-08-28 07:46] LABS: BILIRUBIN NEGATIVE (NEGATIVE); BLOOD NEGATIVE (NEGATIVE); CLARITY CLEAR (CLEAR); COLOR YELLOW (YELLOW); GLUCOSE NEGATIVE (NEGATIVE); KETONE NEGATIVE (NEGATIVE); LEUKO ESTERASE NEGATIVE (NEGATIVE); NITRITE NEGATIVE (NEGATIVE); PH 6.5 (5.0-9.0); SPECIFIC GRAVITY <= 1.005 (1.005-1.030); UROBILINOGEN 0.2 E.U./dl (0.2-1.0)
[2018-08-28 07:58] LABS: EPITHELIAL CELLS 0-2
--- NOTE | 2018-08-28 10:44 | NUR ---
Time: 1043 A 68 year old MALE admitted to 4E under services of HORTENSIA TOWNSEND DO. Pt. arrived via bed from ER. Chief complaint: CHEST PAIN. PATIENT ORIENTED TO THE FLOOR 4E, PATIENT REVIEWED AND COMPLETED THE HEALTHY LIFESTYLES, ADVANCE DIRECTIVE, AND BELONGINGS CHECKLIST FORMS. CALL LIGHT SYSTEM REVIEWED AND DEMONSTRATED. DEON NARVAEZ
--- NOTE | 2018-08-28 11:20 | NUR ---
Time: 1119 A 68 year old MALE admitted to 4E under services of HORTENSIA TOWNSEND DO. Pt. arrived via bed from ER. Chief complaint: CHEST PAIN. PATIENT ORIENTED TO THE FLOOR 4E. HEALTHY LIFESTYLES, BELONGINGS CHECKLIST, AND ADVANCED DIRECTIVE REVIEWED AND COMPLETED. CALL LIGHT SYSTEM REVIEWED AND DEMONSTRATED. DEON NARVAEZ
--- NOTE | 2018-08-28 12:07 | NUR ---
DR. MCCANN NOTIFIED THAT PATIENT IS UP IN THE ROOM AND MED REC IS UP TO DATE PER PATIENT. NOTIFIED OF ELEVATED BLOOD PRESSURE. NO FURTHER ORDERS GIVEN AT THIS TIME.
--- NOTE | 2018-08-28 12:08 | NUR ---
PERSONAL BELONGING GIVEN TO CUT PRESS OPERATOR TO BE PLACED IN A LOCKBOX, HOME MEDS SENT TO PHARMACY.
--- NOTE | 2018-08-28 14:03 | NUR ---
MESSAGE LEFT WITH THE ANSWERING SERVICE FOR ROUTINE CONSULT OF DR. MCELROY FOR LEFT ANKLE SWELLING. CALL BACK EXTENSION PROVIDED.
--- NOTE | 2018-08-28 15:46 | NUR ---
IV HYDRALAZINE GIVEN FOR A SYSTOLIC BP >160. PATIENT ASYMPTOMATIC. WILL CONTINUE TO MONITOR AND REASSESS.
--- NOTE | 2018-08-28 16:33 | NUR ---
HYDRALAZINE EFFECTIVE, PT BP OF 146/88. CALL LIGHT WITHIN REACH.
--- NOTE | 2018-08-28 20:39 | NUR ---
2024 HEP LOCK AND MONITOR REMOVED. PT SIGNED OUT AMA. GIVEN HOME MEDS IN PHARMACY AND BELONGINGS FROM LOCK BOX. DR. PETERS AND ARGON TESTER AWARE. CONDITION STABLE
== END 2018-08-28 20:39 | disposition left against medical advice (07) | DRG 556 ==
LOC: ED 02:57 → EDHOLD 09:24 → 4E 10:33
PROVIDERS: Emergency Medicine; ADMIT Internal Medicine
DX: M25.572 Pain in left ankle and joints of left foot (principal); R65.10 Systemic inflammatory response syndrome (SIRS) of non-infectious origin without acute organ dysfunction; M10.9 Gout, unspecified; R07.9 Chest pain, unspecified; I16.0 Hypertensive urgency; K44.9 Diaphragmatic hernia without obstruction or gangrene; D64.9 Anemia, unspecified; R73.9 Hyperglycemia, unspecified; M71.22 Synovial cyst of popliteal space [Baker], left knee; Z53.21 Procedure and treatment not carried out due to patient leaving prior to being seen by health care provider; J45.991 Cough variant asthma; E55.9 Vitamin D deficiency, unspecified; I10 Essential (primary) hypertension; E66.9 Obesity, unspecified; R26.2 Difficulty in walking, not elsewhere classified; F41.9 Anxiety disorder, unspecified; K21.9 Gastro-esophageal reflux disease without esophagitis; M19.90 Unspecified osteoarthritis, unspecified site; Z88.5 Allergy status to narcotic agent; Z88.1 Allergy status to other antibiotic agents; Z88.8 Allergy status to other drugs, medicaments and biological substances; Z79.899 Other long term (current) drug therapy; Z82.5 Family history of asthma and other chronic lower respiratory diseases; Z82.49 Family history of ischemic heart disease and other diseases of the circulatory system; Z79.51 Long term (current) use of inhaled steroids

== ENCOUNTER 2018-09-13 05:02 | Emergency (ER) | payer MEDICARE, MEDICAID ==
[~2018-09-13] VITALS: Ht 177.8 cm; Wt 79.4 kg
[2018-09-13] MEDS ORDERED: ATIVAN1 MG PO (06:26)
== END 2018-09-13 06:45 | disposition home or self-care (01) ==
LOC: ED 05:02
DX: G89.29 Other chronic pain (principal); M25.561 Pain in right knee; M25.562 Pain in left knee; F43.0 Acute stress reaction; F41.1 Generalized anxiety disorder; K21.9 Gastro-esophageal reflux disease without esophagitis; I10 Essential (primary) hypertension; E66.9 Obesity, unspecified; Z88.5 Allergy status to narcotic agent; Z88.8 Allergy status to other drugs, medicaments and biological substances; Z88.1 Allergy status to other antibiotic agents; Z79.899 Other long term (current) drug therapy; Z68.30 Body mass index [BMI] 30.0-30.9, adult

== ENCOUNTER 2018-10-06 08:36 | Emergency (ER) | payer MEDICARE, MEDICAID ==
[~2018-10-06] VITALS: Ht 180.3 cm; Wt 81.6 kg
--- NOTE | ~2018-10-06 | EKG ---
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
[2018-10-06 09:17] LABS: BASO % 0.4 % (0.0-1.0); EOS # 0.1 10*3/uL (0.0-0.4); EOS % 1.8 % (1.0-4.0); HEMATOCRIT 35.8 % (42.0-52.0); HEMOGLOBIN 11.5 g/dl (14.0-18.0); LYMPH # 1.6 10*3/uL (1.3-4.4); LYMPH % 31.3 % (27.0-41.0); MEAN CELL VOLUME 78.5 fl (80.0-94.0); MEAN CORPUSCULAR HGB 25.2 pg (27.0-31.0); MEAN CORPUSCULAR HGB CONC 32.1 g/dl (33.0-37.0); MONO # 0.4 10*3/uL (0.1-1.0); MONO % 7.5 % (3.0-9.0); NEUT # 2.9 10*3/uL (2.3-7.9); NEUT % 58.4 % (47.0-73.0); PLATELET COUNT AUTOMATED 262 10*3/uL (130-400); RED BLOOD COUNT 4.56 10*6/uL (4.50-5.90); RED CELL DISTRI WIDTH 14.1 % (0-14.5)
[2018-10-06 09:26] LABS: ACT PARTIAL THROMBO TIME 33.1 SECONDS (20.8-31.5); INTERNATIONAL NORM RATIO 1.3 (2.0-3.5)
[2018-10-06 09:43] LABS: ALBUMIN 3.2 gm/dl (3.1-4.5); ALKALINE PHOSPHATASE 108 U/L (45-117); BUN 12 mg/dl (7-24); CHLORIDE 106 mmol/L (98-107); CREATININE 0.94 mg/dL (0.70-1.30); LIPASE 140 U/L (73-393); POTASSIUM 3.4 mmol/L (3.5-5.1); SGOT/AST 16 IU/L (3-35); SGPT/ALT 25 U/L (12-78); SODIUM 139 mmol/L (136-145)
[2018-10-06 09:44] LABS: TROPONIN I < 0.015 ng/ml (<0.045)
[2019-02-22] MEDS ORDERED: AVPAK AZITHROM250 M1 PO (02:46)
[2019-02-22] MEDS ORDERED: TESSALON PERLE100 MG PO (02:46)
== END 2018-10-06 12:14 | disposition home or self-care (01) ==
LOC: ED 08:36
PROVIDERS: Emergency Medicine
DX: I26.99 Other pulmonary embolism without acute cor pulmonale (principal); J45.909 Unspecified asthma, uncomplicated; F17.200 Nicotine dependence, unspecified, uncomplicated; M19.90 Unspecified osteoarthritis, unspecified site; E66.9 Obesity, unspecified; I10 Essential (primary) hypertension; M10.9 Gout, unspecified; K21.9 Gastro-esophageal reflux disease without esophagitis; G89.29 Other chronic pain; M25.561 Pain in right knee; M25.562 Pain in left knee; J32.9 Chronic sinusitis, unspecified; Z79.899 Other long term (current) drug therapy; Z88.5 Allergy status to narcotic agent; Z90.89 Acquired absence of other organs; Z68.34 Body mass index [BMI] 34.0-34.9, adult; Z98.890 Other specified postprocedural states; Z88.1 Allergy status to other antibiotic agents; Z88.6 Allergy status to analgesic agent; Z86.718 Personal history of other venous thrombosis and embolism

== ENCOUNTER → 2018-10-13 | Emergency (ER) | payer MEDICARE, MEDICAID ==
[~2018-10-13] VITALS: Ht 180.3 cm; Wt 81.6 kg
[~2018-10-13] MED LIST changes: +AVPAK AZITHROM250 M1 PO; +TESSALON PERLE100 MG PO
== END ==
LOC: ED 14:35
DX: R05 Cough (principal); J02.9 Acute pharyngitis, unspecified; Z53.21 Procedure and treatment not carried out due to patient leaving prior to being seen by health care provider

== ENCOUNTER 2018-10-17 03:25 | Emergency (ER) | payer MEDICARE, MEDICAID ==
[~2018-10-17] VITALS: Ht 180.3 cm; Wt 81.6 kg
--- NOTE | ~2018-10-17 | EKG ---
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
[~2018-10-17 03:25] MED LIST changes: -AVPAK AZITHROM250 M1 PO; -TESSALON PERLE100 MG PO
[2018-10-17 03:59] LABS: BASO % 0.5 % (0.0-1.0); EOS % 0.7 % (1.0-4.0); HEMATOCRIT 36.5 % (42.0-52.0); HEMOGLOBIN 11.7 g/dl (14.0-18.0); LYMPH # 1.9 10*3/uL (1.3-4.4); LYMPH % 35.4 % (27.0-41.0); MEAN CORPUSCULAR HGB CONC 32.1 g/dl (33.0-37.0); MEAN PLATELET VOLUME 8.3 fl (9.6-12.3); MONO # 0.5 10*3/uL (0.1-1.0); MONO % 8.8 % (3.0-9.0); NEUT % 54.4 % (47.0-73.0); PLATELET COUNT AUTOMATED 204 10*3/uL (130-400); RED BLOOD COUNT 4.68 10*6/uL (4.50-5.90); RED CELL DISTRI WIDTH 14.7 % (0-14.5); WHITE BLOOD COUNT 5.5 10*3/uL (4.8-10.8)
[2018-10-17 04:37] LABS: ALBUMIN 3.2 gm/dl (3.1-4.5); ALKALINE PHOSPHATASE 87 U/L (45-117); BUN 18 mg/dl (7-24); CHLORIDE 105 mmol/L (98-107); CREATININE 1.11 mg/dL (0.70-1.30); LIPASE 245 U/L (73-393); POTASSIUM 3.3 mmol/L (3.5-5.1); SGOT/AST 12 IU/L (3-35); SGPT/ALT 21 U/L (12-78); SODIUM 137 mmol/L (136-145); TOTAL PROTEIN 6.5 gm/dL (6.4-8.2)
[2018-10-17 04:42] LABS: TROPONIN I < 0.015 ng/ml (<0.045)
[2018-10-17 04:43] LABS: URINE AMPHETAMINES < 1000 (1000ng/ml); URINE BARBITURATES < 200 (200ng/ml); URINE BENZODIAZEPINES < 200 (200ng/ml); URINE CANNABINOIDS (THC) < 50 (50ng/ml); URINE COCAINE < 300 (300ng/ml); URINE METHADONE < 300 (300ng/ml); URINE OPIATES > 300 (300ng/ml); URINE PHENCYCLIDINE < 25 (25ng/ml)
[2019-02-22] MEDS ORDERED: TESSALON PERLE100 MG PO (02:46)
[2019-02-22] MEDS ORDERED: AVPAK AZITHROM250 M1 PO (02:46)
== END 2018-10-17 04:55 | disposition left against medical advice (07) ==
LOC: ED 03:25
PROVIDERS: Emergency Medicine
DX: K29.60 Other gastritis without bleeding (principal); K21.9 Gastro-esophageal reflux disease without esophagitis; M10.9 Gout, unspecified; I10 Essential (primary) hypertension; E66.9 Obesity, unspecified; M19.90 Unspecified osteoarthritis, unspecified site; Z88.6 Allergy status to analgesic agent; Z88.1 Allergy status to other antibiotic agents; Z88.8 Allergy status to other drugs, medicaments and biological substances; Z79.899 Other long term (current) drug therapy

== ENCOUNTER 2018-12-03 05:04 | Emergency (ER) | payer MEDICARE ==
[~2018-12-03] VITALS: Ht 180.3 cm; Wt 77.1 kg
[2019-02-22] MEDS ORDERED: AVPAK AZITHROM250 M1 PO (02:46)
[2019-02-22] MEDS ORDERED: TESSALON PERLE100 MG PO (02:46)
== END 2018-12-03 06:48 | disposition home or self-care (01) ==
LOC: ED 05:04
DX: S86.911A Strain of unspecified muscle(s) and tendon(s) at lower leg level, right leg, initial encounter (principal); S86.912A Strain of unspecified muscle(s) and tendon(s) at lower leg level, left leg, initial encounter; K21.9 Gastro-esophageal reflux disease without esophagitis; I10 Essential (primary) hypertension; M19.90 Unspecified osteoarthritis, unspecified site; E66.9 Obesity, unspecified; G89.29 Other chronic pain; M10.9 Gout, unspecified; Z88.1 Allergy status to other antibiotic agents; Z88.6 Allergy status to analgesic agent; Z88.8 Allergy status to other drugs, medicaments and biological substances; Z79.899 Other long term (current) drug therapy; Z68.34 Body mass index [BMI] 34.0-34.9, adult; X58.XXXA Exposure to other specified factors, initial encounter; Y93.89 Activity, other specified; Y92.89 Other specified places as the place of occurrence of the external cause; Y99.8 Other external cause status

== ENCOUNTER 2019-03-02 23:39 | Emergency (ER) | payer MEDICARE ==
[~2019-03-02] VITALS: Ht 180.3 cm; Wt 79.4 kg
[~2019-03-02 23:39] MED LIST changes: +AVPAK AZITHROM250 M1 PO; +TESSALON PERLE100 MG PO
[2019-03-03 00:24] LABS: BASO % 0.8 % (0.0-1.0); EOS # 0.1 10*3/uL (0.0-0.4); EOS % 2.7 % (1.0-4.0); HEMATOCRIT 33.7 % (42.0-52.0); HEMOGLOBIN 11.2 g/dl (14.0-18.0); LYMPH # 1.2 10*3/uL (1.3-4.4); LYMPH % 33.1 % (27.0-41.0); MEAN CORPUSCULAR HGB 27.6 pg (27.0-31.0); MEAN CORPUSCULAR HGB CONC 33.2 g/dl (33.0-37.0); MEAN PLATELET VOLUME 8.5 fl (9.6-12.3); MONO # 0.4 10*3/uL (0.1-1.0); MONO % 9.6 % (3.0-9.0); NEUT % 53.5 % (47.0-73.0); PLATELET COUNT AUTOMATED 130 10*3/uL (130-400); RED BLOOD COUNT 4.06 10*6/uL (4.50-5.90); RED CELL DISTRI WIDTH 15.2 % (0-14.5); WHITE BLOOD COUNT 3.7 10*3/uL (4.8-10.8)
[2019-03-03 00:43] LABS: ALBUMIN 3.5 gm/dl (3.1-4.5); ALKALINE PHOSPHATASE 108 U/L (45-117); BUN 13 mg/dl (7-24); CHLORIDE 105 mmol/L (98-107); CREATININE 1.07 mg/dL (0.70-1.30); POTASSIUM 3.9 mmol/L (3.5-5.1); SGPT/ALT 515 U/L (12-78); SODIUM 137 mmol/L (136-145); TOTAL PROTEIN 6.9 gm/dL (6.4-8.2)
[2019-03-03 00:48] LABS: SGOT/AST 1050 IU/L (3-35)
== END 2019-03-03 06:34 | disposition home or self-care (01) ==
LOC: ED 23:39
PROVIDERS: Nurse Practitioner Family
DX: K21.9 Gastro-esophageal reflux disease without esophagitis (principal); F10.129 Alcohol abuse with intoxication, unspecified; G89.29 Other chronic pain; J45.991 Cough variant asthma; I10 Essential (primary) hypertension; E66.9 Obesity, unspecified; Z88.5 Allergy status to narcotic agent; Z88.8 Allergy status to other drugs, medicaments and biological substances; Z88.1 Allergy status to other antibiotic agents; Z79.2 Long term (current) use of antibiotics; Z79.899 Other long term (current) drug therapy; Z68.30 Body mass index [BMI] 30.0-30.9, adult

== ENCOUNTER 2019-03-06 01:02 | Emergency (ER) | payer MEDICARE ==
[~2019-03-06] VITALS: Ht 175.2 cm; Wt 86.2 kg
--- NOTE | ~2019-03-06 | EKG ---
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
[2019-03-06 01:35] LABS: BASO % 0.7 % (0.0-1.0); EOS # 0.1 10*3/uL (0.0-0.4); EOS % 1.8 % (1.0-4.0); HEMATOCRIT 30.5 % (42.0-52.0); HEMOGLOBIN 10.1 g/dl (14.0-18.0); LYMPH # 1.3 10*3/uL (1.3-4.4); LYMPH % 45.9 % (27.0-41.0); MEAN CELL VOLUME 83.1 fl (80.0-94.0); MEAN CORPUSCULAR HGB 27.5 pg (27.0-31.0); MEAN CORPUSCULAR HGB CONC 33.1 g/dl (33.0-37.0); MEAN PLATELET VOLUME 8.5 fl (9.6-12.3); MONO # 0.2 10*3/uL (0.1-1.0); MONO % 7.4 % (3.0-9.0); NEUT # 1.2 10*3/uL (2.3-7.9); NEUT % 43.8 % (47.0-73.0); PLATELET COUNT AUTOMATED 121 10*3/uL (130-400); RED BLOOD COUNT 3.67 10*6/uL (4.50-5.90); RED CELL DISTRI WIDTH 15.4 % (0-14.5); WHITE BLOOD COUNT 2.8 10*3/uL (4.8-10.8)
[2019-03-06 01:50] LABS: ACT PARTIAL THROMBO TIME 24.6 SECONDS (20.0-32.1); INTERNATIONAL NORM RATIO 1.1 (2.0-3.5)
[2019-03-06 01:53] LABS: ALBUMIN 3.3 gm/dl (3.1-4.5); ALKALINE PHOSPHATASE 98 U/L (45-117); BUN 9 mg/dl (7-24); CHLORIDE 108 mmol/L (98-107); CREATININE 1.04 mg/dL (0.70-1.30); LIPASE 89 U/L (73-393); POTASSIUM 3.6 mmol/L (3.5-5.1); SGOT/AST 60 IU/L (3-35); SGPT/ALT 149 U/L (12-78); SODIUM 139 mmol/L (136-145); TOTAL PROTEIN 6.3 gm/dL (6.4-8.2)
[2019-03-06 01:55] LABS: TROPONIN I < 0.015 ng/ml (<0.045)
== END 2019-03-06 02:30 | disposition home or self-care (01) ==
LOC: ED 01:02
PROVIDERS: Physician Assistant
DX: R10.84 Generalized abdominal pain (principal); R11.0 Nausea; R42 Dizziness and giddiness; G89.29 Other chronic pain; Z88.5 Allergy status to narcotic agent; Z88.8 Allergy status to other drugs, medicaments and biological substances; Z88.1 Allergy status to other antibiotic agents; Z79.2 Long term (current) use of antibiotics; Z79.899 Other long term (current) drug therapy

== ENCOUNTER 2019-03-07 00:12 | Emergency (ER) | payer MEDICARE ==
[~2019-03-07] VITALS: Ht 180.3 cm; Wt 77.1 kg
[2019-03-07 00:57] LABS: BASO % 0.9 % (0.0-1.0); EOS # 0.1 10*3/uL (0.0-0.4); EOS % 1.1 % (1.0-4.0); HEMATOCRIT 34.4 % (42.0-52.0); HEMOGLOBIN 11.2 g/dl (14.0-18.0); LYMPH # 1.7 10*3/uL (1.3-4.4); LYMPH % 36.6 % (27.0-41.0); MEAN CELL VOLUME 83.3 fl (80.0-94.0); MEAN CORPUSCULAR HGB 27.1 pg (27.0-31.0); MEAN CORPUSCULAR HGB CONC 32.6 g/dl (33.0-37.0); MONO # 0.4 10*3/uL (0.1-1.0); MONO % 9.4 % (3.0-9.0); NEUT # 2.4 10*3/uL (2.3-7.9); NEUT % 51.8 % (47.0-73.0); PLATELET COUNT AUTOMATED 139 10*3/uL (130-400); RED BLOOD COUNT 4.13 10*6/uL (4.50-5.90); RED CELL DISTRI WIDTH 15.3 % (0-14.5); WHITE BLOOD COUNT 4.7 10*3/uL (4.8-10.8)
[2019-03-07 01:11] LABS: ALBUMIN 3.7 gm/dl (3.1-4.5); CREATININE 1.64 mg/dL (0.70-1.30); POTASSIUM 3.4 mmol/L (3.5-5.1); TOTAL PROTEIN 6.9 gm/dL (6.4-8.2)
== END 2019-03-07 01:55 | disposition home or self-care (01) ==
LOC: ED 00:12
PROVIDERS: Physician Assistant
DX: G89.29 Other chronic pain (principal); R10.9 Unspecified abdominal pain; F10.229 Alcohol dependence with intoxication, unspecified; R11.0 Nausea; R94.5 Abnormal results of liver function studies; Z88.5 Allergy status to narcotic agent; Z88.8 Allergy status to other drugs, medicaments and biological substances; Z88.1 Allergy status to other antibiotic agents; Z79.899 Other long term (current) drug therapy; Y90.6 Blood alcohol level of 120-199 mg/100 ml

== ENCOUNTER 2019-03-11 22:10 | Emergency (ER) | payer MEDICARE ==
--- NOTE | ~2019-03-11 | EKG ---
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
[2019-03-11 23:13] LABS: BASO % 0.9 % (0.0-1.0); EOS % 0.7 % (1.0-4.0); HEMATOCRIT 34.7 % (42.0-52.0); HEMOGLOBIN 11.6 g/dl (14.0-18.0); LYMPH # 1.5 10*3/uL (1.3-4.4); LYMPH % 34.9 % (27.0-41.0); MEAN CELL VOLUME 83.8 fl (80.0-94.0); MEAN CORPUSCULAR HGB CONC 33.4 g/dl (33.0-37.0); MEAN PLATELET VOLUME 8.4 fl (9.6-12.3); MONO # 0.3 10*3/uL (0.1-1.0); MONO % 6.7 % (3.0-9.0); NEUT # 2.4 10*3/uL (2.3-7.9); NEUT % 56.6 % (47.0-73.0); PLATELET COUNT AUTOMATED 170 10*3/uL (130-400); RED BLOOD COUNT 4.14 10*6/uL (4.50-5.90); RED CELL DISTRI WIDTH 15.4 % (0-14.5); WHITE BLOOD COUNT 4.3 10*3/uL (4.8-10.8)
[2019-03-11 23:25] LABS: ACT PARTIAL THROMBO TIME 22.6 SECONDS (20.0-32.1); INTERNATIONAL NORM RATIO 1.1 (2.0-3.5)
[2019-03-11 23:30] LABS: ALBUMIN 3.6 gm/dl (3.1-4.5); ALKALINE PHOSPHATASE 109 U/L (45-117); BUN 8 mg/dl (7-24); CHLORIDE 109 mmol/L (98-107); CREATININE 1.17 mg/dL (0.70-1.30); LIPASE 213 U/L (73-393); POTASSIUM 3.2 mmol/L (3.5-5.1); SGOT/AST 30 IU/L (3-35); SGPT/ALT 46 U/L (12-78); SODIUM 141 mmol/L (136-145)
[2019-03-11 23:31] LABS: TROPONIN I < 0.015 ng/ml (<0.045)
[2019-03-11 23:48] LABS: BILIRUBIN NEGATIVE (NEGATIVE); BLOOD NEGATIVE (NEGATIVE); CLARITY CLEAR (CLEAR); COLOR YELLOW (YELLOW); GLUCOSE NEGATIVE (NEGATIVE); KETONE NEGATIVE (NEGATIVE); LEUKO ESTERASE NEGATIVE (NEGATIVE); NITRITE NEGATIVE (NEGATIVE); PH 6.5 (5.0-9.0); SPECIFIC GRAVITY <= 1.005 (1.005-1.030); UROBILINOGEN 0.2 E.U./dl (0.2-1.0)
[2019-03-12 00:02] LABS: BACTERIA TRACE; HYALINE CAST 0-2; WBC 0-2 wbc/hpf (0-5)
== END 2019-03-12 01:55 | disposition left against medical advice (07) ==
LOC: ED 22:10
PROVIDERS: Nurse Practitioner Family
DX: K29.70 Gastritis, unspecified, without bleeding (principal); R42 Dizziness and giddiness; K21.9 Gastro-esophageal reflux disease without esophagitis; I10 Essential (primary) hypertension; F10.129 Alcohol abuse with intoxication, unspecified; Z88.5 Allergy status to narcotic agent; Z88.8 Allergy status to other drugs, medicaments and biological substances; Z88.1 Allergy status to other antibiotic agents; Z79.899 Other long term (current) drug therapy; Z79.2 Long term (current) use of antibiotics

== ENCOUNTER 2019-03-17 03:59 | Emergency (ER) | payer MEDICARE ==
[~2019-03-17] VITALS: Wt 77.1 kg
[2019-03-17 04:59] LABS: BASO % 0.6 % (0.0-1.0); EOS # 0.1 10*3/uL (0.0-0.4); EOS % 2.7 % (1.0-4.0); HEMATOCRIT 29.1 % (42.0-52.0); HEMOGLOBIN 9.6 g/dl (14.0-18.0); LYMPH # 1.2 10*3/uL (1.3-4.4); LYMPH % 35.4 % (27.0-41.0); MEAN CELL VOLUME 86.1 fl (80.0-94.0); MEAN CORPUSCULAR HGB 28.4 pg (27.0-31.0); MONO # 0.3 10*3/uL (0.1-1.0); MONO % 8.8 % (3.0-9.0); NEUT # 1.8 10*3/uL (2.3-7.9); NEUT % 52.2 % (47.0-73.0); PLATELET COUNT AUTOMATED 99 10*3/uL (130-400); RED BLOOD COUNT 3.38 10*6/uL (4.50-5.90); RED CELL DISTRI WIDTH 15.1 % (0-14.5); WHITE BLOOD COUNT 3.4 10*3/uL (4.8-10.8)
[2019-03-17 05:14] LABS: ALBUMIN 3.4 gm/dl (3.1-4.5); CREATININE 1.65 mg/dL (0.70-1.30); POTASSIUM 3.5 mmol/L (3.5-5.1); TOTAL PROTEIN 6.6 gm/dL (6.4-8.2)
== END 2019-03-17 06:10 | disposition home or self-care (01) ==
LOC: ED 03:59
PROVIDERS: Emergency Medicine Emergency Medical Services
DX: S52.532A Colles' fracture of left radius, initial encounter for closed fracture (principal); F10.129 Alcohol abuse with intoxication, unspecified; I10 Essential (primary) hypertension; K21.9 Gastro-esophageal reflux disease without esophagitis; M10.9 Gout, unspecified; M19.90 Unspecified osteoarthritis, unspecified site; E66.9 Obesity, unspecified; Z88.6 Allergy status to analgesic agent; Z88.8 Allergy status to other drugs, medicaments and biological substances; Z88.1 Allergy status to other antibiotic agents; Z79.899 Other long term (current) drug therapy; Z68.34 Body mass index [BMI] 34.0-34.9, adult; W19.XXXA Unspecified fall, initial encounter; Y93.89 Activity, other specified; Y92.89 Other specified places as the place of occurrence of the external cause; Y99.8 Other external cause status; Y90.9 Presence of alcohol in blood, level not specified

== ENCOUNTER 2019-03-23 05:54 | Emergency (ER) | payer MEDICARE ==
[~2019-03-23] VITALS: Ht 180.3 cm; Wt 77.1 kg
--- NOTE | ~2019-03-23 | EKG ---
[place], [place] ELECTROCARDIOGRAM REPORT NAME: RODNEY MONCADA UNIT #: [id number] ROOM: DOCTOR: EPIPHANY DRAFT REPORT BIRTHDATE: [birth year] [facility] Test Date: 2019-03-23 Test Time: 08:14:11 Pat Name: RODNEY MONCADA Department: ER Room: Gender: Manager Of Selection And Assessment: : 1950 Requested By: SANDEE STERLING Order Number: [id number] Reading MD: Sunny Santos MD Measurements Intervals [place] Rate: 64 P: 58 [place]: 177 QRS: 47 QRSD: 113 T: 44 QT: 450 QTc: 465 Interpretive Statements Sinus rhythm Probable left ventricular hypertrophy Electronically Signed On 03-24-2019 13:17:26 PDT by Sunny Santos MD CM:EKGRPT:ELECTROCARDIOGRAM REPORT 0814 1317 SANDEE NIELSON DRAFT REPORT SANDEE STERLING DO
[2019-03-23 08:24] LABS: BASO % 0.5 % (0.0-1.0); EOS # 0.1 10*3/uL (0.0-0.4); EOS % 1.9 % (1.0-4.0); HEMATOCRIT 27.8 % (42.0-52.0); HEMOGLOBIN 9.2 g/dl (14.0-18.0); MEAN CELL VOLUME 85.5 fl (80.0-94.0); MEAN CORPUSCULAR HGB 28.3 pg (27.0-31.0); MEAN CORPUSCULAR HGB CONC 33.1 g/dl (33.0-37.0); MEAN PLATELET VOLUME 8.1 fl (9.6-12.3); MONO # 0.4 10*3/uL (0.1-1.0); MONO % 9.4 % (3.0-9.0); NEUT # 2.2 10*3/uL (2.3-7.9); NEUT % 59.9 % (47.0-73.0); PLATELET COUNT AUTOMATED 89 10*3/uL (130-400); RED BLOOD COUNT 3.25 10*6/uL (4.50-5.90); RED CELL DISTRI WIDTH 14.4 % (0-14.5); WHITE BLOOD COUNT 3.7 10*3/uL (4.8-10.8)
[2019-03-23 08:40] LABS: ALBUMIN 3.1 gm/dl (3.1-4.5); ALKALINE PHOSPHATASE 92 U/L (45-117); BUN 7 mg/dl (7-24); CHLORIDE 101 mmol/L (98-107); CREATININE 1.06 mg/dL (0.70-1.30); POTASSIUM 3.3 mmol/L (3.5-5.1); SGOT/AST 11 IU/L (3-35); SGPT/ALT 14 U/L (12-78); SODIUM 135 mmol/L (136-145)
[2019-03-23 08:44] LABS: BILIRUBIN NEGATIVE (NEGATIVE); BLOOD NEGATIVE (NEGATIVE); CLARITY CLEAR (CLEAR); COLOR YELLOW (YELLOW); GLUCOSE NEGATIVE (NEGATIVE); KETONE NEGATIVE (NEGATIVE); LEUKO ESTERASE NEGATIVE (NEGATIVE); NITRITE NEGATIVE (NEGATIVE); SPECIFIC GRAVITY <= 1.005 (1.005-1.030); UROBILINOGEN 0.2 E.U./dl (0.2-1.0)
[2019-03-23 08:47] LABS: TROPONIN I < 0.015 ng/ml (<0.045)
[2019-03-23 08:50] LABS: URINE AMPHETAMINES < 1000 (1000ng/ml); URINE BARBITURATES < 200 (200ng/ml); URINE BENZODIAZEPINES < 200 (200ng/ml); URINE CANNABINOIDS (THC) < 50 (50ng/ml); URINE COCAINE < 300 (300ng/ml); URINE METHADONE < 300 (300ng/ml); URINE OPIATES < 300 (300ng/ml)
[2019-03-23 08:51] LABS: URINE PHENCYCLIDINE < 25 (25ng/ml)
[2019-03-23 09:01] LABS: EPITHELIAL CELLS 0-2
== END 2019-03-23 11:04 | disposition left against medical advice (07) ==
LOC: ED 05:54
PROVIDERS: Internal Medicine
DX: F10.129 Alcohol abuse with intoxication, unspecified (principal); R13.10 Dysphagia, unspecified; R11.0 Nausea; J02.9 Acute pharyngitis, unspecified; R05 Cough; K21.9 Gastro-esophageal reflux disease without esophagitis; G89.29 Other chronic pain; I10 Essential (primary) hypertension; E66.9 Obesity, unspecified; F17.200 Nicotine dependence, unspecified, uncomplicated; Z88.5 Allergy status to narcotic agent; Z88.8 Allergy status to other drugs, medicaments and biological substances; Z88.1 Allergy status to other antibiotic agents; Z79.899 Other long term (current) drug therapy; Z68.30 Body mass index [BMI] 30.0-30.9, adult; Z86.711 Personal history of pulmonary embolism

== ENCOUNTER 2019-04-06 21:08 | Emergency (ER) | payer MEDICARE ==
[~2019-04-06] VITALS: Ht 180.3 cm; Wt 77.1 kg
== END 2019-04-06 23:32 | disposition home or self-care (01) ==
LOC: ED 21:08
DX: R13.10 Dysphagia, unspecified (principal); J02.9 Acute pharyngitis, unspecified; K21.9 Gastro-esophageal reflux disease without esophagitis; Z88.5 Allergy status to narcotic agent; Z88.8 Allergy status to other drugs, medicaments and biological substances; Z88.1 Allergy status to other antibiotic agents; Z79.899 Other long term (current) drug therapy

== ENCOUNTER 2019-04-10 23:55 | Emergency (ER) | payer MEDICARE ==
[~2019-04-10] VITALS: Ht 195.5 cm; Wt 86.2 kg
[2019-04-12] MEDS ORDERED: XARE20MG PO (06:41)
[2019-04-12] MEDS ORDERED: VISTARIL50 MG PO (06:42)
[2019-04-12] MEDS ORDERED: CETIRIZINE HYDR10 MG PO (06:42)
[2019-04-12] MEDS ORDERED: IPRATROPIUM BRO15 ML NAS (06:43)
[2019-04-12] MEDS ORDERED: ONDANSETRON HYDR4 MG PO (06:44)
[2019-04-12] MEDS ORDERED: PANTOPRAZOLE SO40 MG PO (06:45)
[2019-04-12] MEDS ORDERED: OXYCODONE HCL30 MG PO (06:46)
[2019-04-12] MEDS ORDERED: NAPROXEN500 MG PO (06:46)
[2019-04-12] MEDS ORDERED: BUSPIRONE HCL10 MG PO (06:47)
== END 2019-04-11 03:36 | disposition home or self-care (01) ==
LOC: ED 23:55
DX: S52.532A Colles' fracture of left radius, initial encounter for closed fracture (principal); I10 Essential (primary) hypertension; G89.29 Other chronic pain; K21.9 Gastro-esophageal reflux disease without esophagitis; E66.9 Obesity, unspecified; Z68.30 Body mass index [BMI] 30.0-30.9, adult; Z88.5 Allergy status to narcotic agent; Z88.8 Allergy status to other drugs, medicaments and biological substances; Z88.1 Allergy status to other antibiotic agents; Z79.899 Other long term (current) drug therapy; X58.XXXA Exposure to other specified factors, initial encounter; Y93.89 Activity, other specified; Y92.481 Parking lot as the place of occurrence of the external cause; Y99.8 Other external cause status

== ENCOUNTER 2019-04-12 02:39 | Inpatient (IN) | payer MEDICARE ==
[2019-04-12] VITALS (7 sets, daily range): BP systolic 138–168; BP diastolic 63–88
[~2019-04-12] VITALS: Ht 180.3 cm; Wt 76.9 kg
[2019-04-12 03:30] LABS: BASO % 0.9 % (0.0-1.0); EOS # 0.2 10*3/uL (0.0-0.4); EOS % 5.8 % (1.0-4.0); HEMATOCRIT 26.7 % (42.0-52.0); HEMOGLOBIN 9.1 g/dl (14.0-18.0); LYMPH # 1.4 10*3/uL (1.3-4.4); LYMPH % 41.3 % (27.0-41.0); MEAN CELL VOLUME 83.7 fl (80.0-94.0); MEAN CORPUSCULAR HGB 28.5 pg (27.0-31.0); MEAN CORPUSCULAR HGB CONC 34.1 g/dl (33.0-37.0); MEAN PLATELET VOLUME 9.1 fl (9.6-12.3); MONO # 0.3 10*3/uL (0.1-1.0); MONO % 9.7 % (3.0-9.0); NEUT # 1.4 10*3/uL (2.3-7.9); PLATELET COUNT AUTOMATED 85 10*3/uL (130-400); RED BLOOD COUNT 3.19 10*6/uL (4.50-5.90); RED CELL DISTRI WIDTH 14.1 % (0-14.5); WHITE BLOOD COUNT 3.3 10*3/uL (4.8-10.8)
[2019-04-12 03:41] LABS: ACT PARTIAL THROMBO TIME 25.2 SECONDS (20.0-32.1)
[2019-04-12 03:47] LABS: ACETAMINOPHEN (TYLENOL) < 5.0 ug/ml (10-30); ALBUMIN 3.3 gm/dl (3.1-4.5); ALKALINE PHOSPHATASE 118 U/L (45-117); BUN 14 mg/dl (7-24); CHLORIDE 103 mmol/L (98-107); CREATININE 1.05 mg/dL (0.70-1.30); LIPASE 260 U/L (73-393); POTASSIUM 3.3 mmol/L (3.5-5.1); SGOT/AST 26 IU/L (3-35); SGPT/ALT 20 U/L (12-78); SODIUM 138 mmol/L (136-145); TOTAL PROTEIN 6.6 gm/dL (6.4-8.2); TROPONIN I < 0.015 ng/ml (<0.045)
[2019-04-12 03:51] LABS: BILIRUBIN NEGATIVE (NEGATIVE); BLOOD NEGATIVE (NEGATIVE); CLARITY CLEAR (CLEAR); COLOR YELLOW (YELLOW); GLUCOSE NEGATIVE (NEGATIVE); KETONE NEGATIVE (NEGATIVE); LEUKO ESTERASE NEGATIVE (NEGATIVE); NITRITE NEGATIVE (NEGATIVE); SPECIFIC GRAVITY <= 1.005 (1.005-1.030); UROBILINOGEN 0.2 E.U./dl (0.2-1.0)
[2019-04-12 03:57] LABS: BACTERIA TRACE; EPITHELIAL CELLS 0-2; RBC 0-2 rbc/hpf (0-2); WBC 0-2 wbc/hpf (0-5)
[2019-04-12 03:59] LABS: URINE AMPHETAMINES < 1000 (1000ng/ml); URINE BARBITURATES < 200 (200ng/ml); URINE BENZODIAZEPINES > 200 (200ng/ml); URINE CANNABINOIDS (THC) < 50 (50ng/ml); URINE COCAINE < 300 (300ng/ml); URINE METHADONE < 300 (300ng/ml); URINE OPIATES > 300 (300ng/ml)
[2019-04-12 04:00] LABS: URINE PHENCYCLIDINE < 25 (25ng/ml)
--- NOTE | 2019-04-12 04:02 | NUR ---
PATIENT WITH SMALL ABRASION TO LEFT THUMB. REFUSED PICTURES.
--- NOTE | 2019-04-12 05:50 | NUR ---
A 68, admitted to , under the services of JULIA August DO with a diagnosis of FX LEFT WRIST,ACUTE ALCOHOL INTOXICATION. Chief complaint is ACUTE PAIN. Patient arrived via stretcher from ER. Monitor applied. Initial assessment completed. Vital signs taken and recorded. JULIA AUGUST DO notified of admission to the unit. Orders received. See assessment for past medical history, medications and allergies. Patient and/or family oriented to unit. [facility] visitation policy reviewed. Clothing/patient valuable form completed. MENG KLINE
--- NOTE | 2019-04-12 05:50 | NUR ---
PATIENT REFUSES TO HAVE PICTURES AND MEASUREMENTS TAKEN OF WOUND ON LEFT THUMB WEB.
[2019-04-12 06:23] LABS: EOS # 0.2 10*3/uL (0.0-0.4); EOS % 6.2 % (1.0-4.0); HEMATOCRIT 25.9 % (42.0-52.0); HEMOGLOBIN 8.6 g/dl (14.0-18.0); LYMPH # 1.3 10*3/uL (1.3-4.4); LYMPH % 44.1 % (27.0-41.0); MEAN CELL VOLUME 84.6 fl (80.0-94.0); MEAN CORPUSCULAR HGB 28.1 pg (27.0-31.0); MEAN CORPUSCULAR HGB CONC 33.2 g/dl (33.0-37.0); MEAN PLATELET VOLUME 8.6 fl (9.6-12.3); MONO # 0.3 10*3/uL (0.1-1.0); MONO % 10.3 % (3.0-9.0); NEUT # 1.1 10*3/uL (2.3-7.9); NEUT % 38.1 % (47.0-73.0); PLATELET COUNT AUTOMATED 75 10*3/uL (130-400); RED BLOOD COUNT 3.06 10*6/uL (4.50-5.90); RED CELL DISTRI WIDTH 14.1 % (0-14.5); WHITE BLOOD COUNT 2.9 10*3/uL (4.8-10.8)
[2019-04-12 06:28] LABS: ALBUMIN 2.9 gm/dl (3.1-4.5); BUN 14 mg/dl (7-24); CHLORIDE 104 mmol/L (98-107); CREATININE 0.98 mg/dL (0.70-1.30); PHOSPHOROUS 2.1 mg/dL (2.5-4.9); POTASSIUM 3.1 mmol/L (3.5-5.1); SGOT/AST 18 IU/L (3-35); SGPT/ALT 19 U/L (12-78); SODIUM 137 mmol/L (136-145)
[2019-04-12 06:38] LABS: ALKALINE PHOSPHATASE 113 U/L (45-117); TOTAL PROTEIN 5.8 gm/dL (6.4-8.2)
[2019-04-12] MEDS ORDERED: XARE20MG PO (06:41)
[2019-04-12] MEDS ORDERED: VISTARIL50 MG PO (06:42)
[2019-04-12] MEDS ORDERED: CETIRIZINE HYDR10 MG PO (06:42)
[2019-04-12] MEDS ORDERED: IPRATROPIUM BRO15 ML NAS (06:43)
[2019-04-12] MEDS ORDERED: ONDANSETRON HYDR4 MG PO (06:44)
[2019-04-12] MEDS ORDERED: PANTOPRAZOLE SO40 MG PO (06:45)
[2019-04-12] MEDS ORDERED: OXYCODONE HCL30 MG PO (06:46)
[2019-04-12] MEDS ORDERED: NAPROXEN500 MG PO (06:46)
[2019-04-12] MEDS ORDERED: BUSPIRONE HCL10 MG PO (06:47)
--- NOTE | 2019-04-12 06:49 | NUR ---
DR BOND CALLED, MADE AWARE THAT HOME MEDICATIONS ARE UP TO DATE.
[2019-04-12 07:08] LABS: CHOLESTEROL 116 mg/dL (<200); HDL CHOLESTEROL 69 mg/dl (40-60); TRIGLYCERIDES 351 mg/dl (<150)
[2019-04-12 08:33] LABS: VITAMIN D, 25-HYDROXY 15.6 ng/mL (30-100)
--- NOTE | 2019-04-12 09:00 | NUR ---
Fish Agent in to talk to patient. Patient states lives at home with alone. There are few steps in the home. Physician: Pharmacy: [facility] [place] [facility]: none Patient's level of ADLs: INDEPENDENT Patient has working utilities: all working DME: none Follow-up physician's appointment after d/c: will be made by hospitalist nurse director upon discharge Does patient want to access PORTAL?: no Discharge plan discussed with patient, patient states he lives at home, is independent in adls and ambulation, patient stated he would be returning home when able. SUKHDEV ROSAS
--- NOTE | 2019-04-12 10:50 | NUR ---
DR. CRAWFORD NOTIFIED OF CONSULT FOR DYSPHAGIA. ORDER GIVEN EGD DILATION ON04/13/2019. HOLD BLOOD THINNERS AND PT NPO AFTER MIDNIGHT
--- NOTE | 2019-04-12 11:52 | NUR ---
RODNEY MONCADA Jen [id number] Please refer to the physician's history and physical for past medical history, comorbid conditions, and allergies. Diagnosis: FX OF LEFT WRIST, AC ALCOHOL INTOX IN PT W/ ALCOHO [place]ady Score: 16,AT RISK WOUND DESCRIPTIONS: Wound Number: 1 Location of the wound: left wrist Type of wound: medical lab scientist related pressure injury stage 3 Thickness: Full Size: 0.6cm x 0.6cm x 0.1cm Tunneling: none Undermining: none Sinus Tract: none Presence of Exudate: Serosanguineous Amount: Light Color: Red, yellow Odor: None Periwound Skin Appearance: Normal Wound edges: approxiamted Pain (associated with wound): none at time of assessment How does patient state this happened? pt stated this was from his brace rubbing Surface the patient is resting on: Position Pro SKIN PREVENTION RECOMMENDATION: 1. Pressure redistribution support surface as appropriate 2. Elevate heels 3. Remove boots/TEDS every shift and reapply 4. Head of bed 30 degrees as tolerated 5. Assess nutrition and hydration 6. Manage moisture 7. Avoid the use of containment devices while in bed 8. Use absorptive products on surfaces limit layers of linens on bed 9. Turn and reposition every 1-2 hours in bed and every 1 hour in chair as tolerated 10. Weight shifts every 15 minutes while up in chair 11. Offloading with pillows or device to keep heels elevated off bed 12. Monitor skin at least every shift 13. Inspect under medical devices twice a day WOUND TREATMENT RECOMMENDATIONS: Stage 3 guidelines: Cleanse left wrist with nss and apply sureprep around the wound therahoney to wound bed and cover with optifoam gentle daily and prn for soiling. Patient state he will care for this area when he is discharge on his own.
--- NOTE | 2019-04-12 15:25 | NUR ---
Dr. Brandon notified of wound care recommendations.
--- NOTE | 2019-04-12 16:56 | NUR ---
[place] STAFF SPOKE WITH PATIENT ABOUT [facility] SERVICES. PATIENT MEETS [facility]. PATIENT WANTS TO FOLLOW UP WITH [facility] FOR HIS AFTERCARE PLAN. LAY CABRERA B.A. TACTICAL/MOBILE WATCH OFFICER
--- NOTE | 2019-04-12 19:30 | NUR ---
24 HOUR CHART CHECK COMPLETE.
--- NOTE | 2019-04-12 20:00 | NUR ---
SURGERY PACKET COMPLETE, PLACED IN PATIENTS CHART.
[2019-04-13] VITALS (8 sets, daily range): BP systolic 148–177; BP diastolic 76–99
--- NOTE | 2019-04-13 00:18 | NUR ---
SPOKE WITH DR. HOUSTON REGARDING PTS CONCERN OF NOT RECEIVING ANY BLOOD PRESSURE MEDICATIONS. HIS MANUAL BP AT THIS TIME WAS 160/90. DR HOUSTON RECOMMENEDED TO CONTINUE MONITORING THE PT, THIS IS WHERE HE HAS BEEN RUNNING CONSISTENTLY. NO NEW ORDERS.
[2019-04-13 06:54] LABS: BASO % 0.3 % (0.0-1.0); EOS # 0.2 10*3/uL (0.0-0.4); EOS % 5.6 % (1.0-4.0); HEMATOCRIT 29.3 % (42.0-52.0); HEMOGLOBIN 9.8 g/dl (14.0-18.0); LYMPH # 0.8 10*3/uL (1.3-4.4); LYMPH % 26.1 % (27.0-41.0); MEAN CELL VOLUME 84.2 fl (80.0-94.0); MEAN CORPUSCULAR HGB 28.2 pg (27.0-31.0); MEAN CORPUSCULAR HGB CONC 33.4 g/dl (33.0-37.0); MEAN PLATELET VOLUME 8.6 fl (9.6-12.3); MONO # 0.3 10*3/uL (0.1-1.0); MONO % 10.5 % (3.0-9.0); NEUT # 1.7 10*3/uL (2.3-7.9); NEUT % 57.5 % (47.0-73.0); PLATELET COUNT AUTOMATED 83 10*3/uL (130-400); RED BLOOD COUNT 3.48 10*6/uL (4.50-5.90); RED CELL DISTRI WIDTH 14.5 % (0-14.5); WHITE BLOOD COUNT 2.9 10*3/uL (4.8-10.8)
[2019-04-13 07:12] LABS: ALKALINE PHOSPHATASE 106 U/L (45-117); BUN 8 mg/dl (7-24); CHLORIDE 109 mmol/L (98-107); CREATININE 0.79 mg/dL (0.70-1.30); POTASSIUM 3.1 mmol/L (3.5-5.1); SGOT/AST 21 IU/L (3-35); SGPT/ALT 18 U/L (12-78); SODIUM 141 mmol/L (136-145); TOTAL PROTEIN 6.1 gm/dL (6.4-8.2)
--- NOTE | 2019-04-13 07:59 | NUR ---
THIS NURSE INTO PATIENT ROOM TO CHECK BLOOD PRESSURE, 148/80. PATIENT STATES HE TOOK 1/2 OF HIS NORVASC LASTNIGHT. THIS NURSE NOTIFIED HIM OF THE HOSPITAL POLICY AND INFORMED HIM HE IS NOT ALLOWED TO HAVE MEDICATIONS FROM HOME IN THE ROOM OR TAKE THEM. PATIENT DENIES HAVING ANYMORE MEDICATIONS IN HIS ROOM.
--- NOTE | 2019-04-13 08:50 | NUR ---
DR. LAGOS OKAYED TO GIVE LIBRIUM DOSE NOW BECAUSE 0600 DOSE WAS NOT GIVEN.
--- NOTE | 2019-04-13 09:00 | NUR ---
case management visits with patient, more awake today, he lives at home with his , he states he lost his driving license and his drives wherever he needs to go. patient states he will return home when able and at this time denies any home needs
--- NOTE | 2019-04-13 09:00 | NUR ---
PATIENT REFUSING NORVASC. STATES IT DOES ABSOLUTELY NOTHING FOR HIM. THIS NURSE STATED WE DO NOT HAVE HIS BLOOD PRESSURE MEDICATION HERE IN OUR PHARMACY SO IT IS A SUBSTITUE. HE NEEDS TO BRING HIS BOTTLE FROM HOME SO WE CAN GIVE IT TO HIM HERE.
--- NOTE | 2019-04-13 13:01 | NUR ---
PATIENT IS GOING TO [facility] IN [place] FOR HIS AFTERCARE PLAN. [place] STAFF ALSO PROVIDED PATIENT WITH INFORMATION ON THE VIVITROL SHOT. [place] STAFF PROVIDED PATIENT WITH APPOINTMENT DATE AND TIME. PATIENT AGREES AND UNDERSTANDS HIS AFTERCARE PLAN. LAY CABRERA B.A. SEWER PIPE OFFBEARER
--- NOTE | 2019-04-13 13:46 | NUR ---
ATTEMPTED TO CALL [facility] TO RECEIVE PATIENT MED REC. NO ANSWER. VOICE MAIL LEFT. WILL RETRY
--- NOTE | 2019-04-13 14:54 | NUR ---
PATIENT BACK FROM SURGERY
--- NOTE | 2019-04-13 20:00 | NUR ---
24 HOUR CHART CHECK COMPLETE.
--- NOTE | 2019-04-13 21:43 | NUR ---
PRN ATIVAN ADMINISTERED FOR PT C/O TREMORS. WILL CONTINUE TO MONITOR.
--- NOTE | 2019-04-13 22:35 | NUR ---
ZOFRAN ADMINISTERED FOR PT C/O NAUSEA. WILL CONTINUE TO MONITOR.
--- NOTE | 2019-04-13 23:09 | NUR ---
PT SLEEPING AT THIS TIME. NO SIGNS OF DISCOMFORT OR DISTRESS NOTED.
[2019-04-14] VITALS: BP 148/66
--- NOTE | 2019-04-14 00:22 | NUR ---
PRN BENTYL ADMINISTERED FOR PT C/O ABDOMINAL CRAMPS. WILL CONTINUE TO MONITOR.
--- NOTE | 2019-04-14 02:59 | NUR ---
PRN OXYCODONE ADMINISTERED PRESCRIBED. PT C/O "HURTING ALL OVER" SPECIFICALLY IN HIS KNEES. WILL CONTINUE TO MONITOR.
--- NOTE | 2019-04-14 03:49 | NUR ---
PT ASLEEP. NO SIGNS OF DISCOMFORT OR DISTRESS NOTED.
--- NOTE | 2019-04-14 06:01 | NUR ---
SPOKE WITH DR MATA REGARDING PTS CONDITIION THIS MORNING. UPON ENTERING PTS ROOM, PT AWOKE AND IS VERY LETHARGIC. WHEN ASKED IF ANYTHING IS BOTHERING HIM HE DENIES AND SAYS "I'M JUST TIRED". PTS VITALS ARE TEMP: 97.8, P: 64, R: 18, BP: 183/90, PO: 100%. PT HAS BEEN REFUSING BLOOD PRESSURE MEDICINE WHILE HERE. WHEN ASKED IF HE HAS A HEADACHE HE REPLIED WITH "A LITTLE" AND STATES HIS BLOOD PRESSURE WILL DECREASE "ON ITS OWN IN 20 MINUTES OR SO". WHILE SITTING AT THE EDGE OF THE BED THE PT CONTINUOUSLY FALLS BACKWARDS INTO BED AND JERKS AWAKE WHEN I STATE HIS NAME. WILL CONTINUE TO MONITOR AT THIS TIME UNTIL I HEAR BACK FROM DR. MATA.
--- NOTE | 2019-04-14 06:30 | NUR ---
NO NEW ORDERS RECEIVED. PT STILL LETHARGIC/DROWSY AT THIS TIME. WILL CONTINUE TO MONITOR.
[2019-04-14 07:03] LABS: BUN 14 mg/dl (7-24); CHLORIDE 107 mmol/L (98-107); CREATININE 1.33 mg/dL (0.70-1.30); POTASSIUM 3.9 mmol/L (3.5-5.1); SODIUM 140 mmol/L (136-145)
[2019-04-14 08:00] VITALS: BP 140/80; BP 159/75
[2019-04-14 12:00] VITALS: BP 168/68
--- NOTE | 2019-04-14 14:45 | NUR ---
Pt more alert this afternoon, conversing, answering questions appropriately. Meds that were held earlier given at this time.
[2019-04-14 20:00] VITALS: BP 144/64
--- NOTE | 2019-04-14 20:00 | NUR ---
24 HOUR CHART CHECK COMPLETE.
[2019-04-15] VITALS: BP 150/69
--- NOTE | 2019-04-15 01:53 | NUR ---
PRN TYLENOL ADMINISTERED PRESCRIBED FOR PT C/O LT KNEE PAIN. WILL CONTINUE TO MONITOR AND REASSESS. CALL LIGHT IN REACH,
--- NOTE | 2019-04-15 02:30 | NUR ---
PT ASLEEP. NO SIGNS OF DISCOMFORT OR DISTRESS NOTED.
--- NOTE | 2019-04-15 05:56 | NUR ---
DR. ABURTO NOTIFIED THAT PATIENT REFUSED MORNING LABS
--- NOTE | 2019-04-15 06:02 | NUR ---
PRN TYLENOL ADMINISTERED FOR PT C/O 03/17 LEFT KNEE AND LEFT ARM PAIN. WILL CONTINUE TO MONITOR AND REASSESS. NO OTHER COMPLAINTS AT THIS TIME. CALL LIGHT IN REACH.
--- NOTE | 2019-04-15 06:30 | NUR ---
PT STATES "LITTLE TO NO RELIEF" FROM THE TYLENOL. WILL CONTINUE TO MONITOR.
--- NOTE | 2019-04-15 06:59 | NUR ---
PT ASLEEP AT THIS TIME. NO SIGNS OF DISCOMFORT OR DISTRESS.
--- NOTE | 2019-04-15 07:15 | NUR ---
BED SIDE REPORT RECEIVED FROM NIGHTSHIFT NURSE. PT IS AWAKE AND ALERT. VERBALIZES NO CONCERNS AT THIS TIME. RESPIRATIONS EASY. CALL LIGHT IN REACH.
[2019-04-15 08:00] VITALS: BP 148/65
[2019-04-15 12:00] VITALS: BP 156/83
--- NOTE | 2019-04-15 15:51 | NUR ---
DR. RODRIGUEZ NOTIFIED OF PT CONCERN FOR WANTING TO GO HOME.
[2019-04-15 16:00] VITALS: BP 151/68
[2019-04-15 20:00] VITALS: BP 143/78
--- NOTE | 2019-04-15 22:58 | NUR ---
WALKED OUT TO [facility] DESK STATING HIS IS ON HER WAY TO GET HIM, HE NEEDS TO LEAVE BECAUSE HIS NIECE HAS A HEART ATTACK. CALLED AND CONFIRMED THAT THERE WAS NOT A MEDICAL EMERGENCY WITH ANY FAMILY MEMBER. CONCERNED THAT HE WAS HAVING AN ANXIETY ATTACK. CALLED FOR INCREASED ANXIETY DESPITE VISTARIL, NEW ORDER FOR IV ATIVAN GIVEN. SEE MAR.
--- NOTE | 2019-04-15 23:35 | NUR ---
PT REQUESTING TO LEAVE AMA. PT IS ALERT AND ORIENTED. IV REMOVED. ALL BELONGINGS TAKEN BY PT AT DISCHARGE.
--- NOTE | 2019-04-15 23:35 | NUR ---
[facility] INSTRUCTOR AND DR. LAGOS MADE AWARE THAT PATIENT LEFT AMA
== END 2019-04-15 23:35 | disposition left against medical advice (07) | DRG 392 ==
LOC: ED 02:39 → 4E 04:42 → EDHOLD 04:42 → 4E 05:19
PROVIDERS: Emergency Medicine Emergency Medical Services; Student in an Organized Health Care Education/Training Program; ADMIT Internal Medicine
PROC: 0D718ZZ Dilation of Upper Esophagus, Via Natural or Artificial Opening Endoscopic (ICD-10-PCS; principal; 2019-04-13)
PROC: 0DB78ZX Excision of Stomach, Pylorus, Via Natural or Artificial Opening Endoscopic, Diagnostic (ICD-10-PCS; principal; 2019-04-13)
DX: K22.2 Esophageal obstruction (principal); E46 Unspecified protein-calorie malnutrition; F10.229 Alcohol dependence with intoxication, unspecified; E87.6 Hypokalemia; E83.41 Hypermagnesemia; D70.9 Neutropenia, unspecified; J32.9 Chronic sinusitis, unspecified; E66.9 Obesity, unspecified; I10 Essential (primary) hypertension; F11.10 Opioid abuse, uncomplicated; M15.9 Polyosteoarthritis, unspecified; F41.9 Anxiety disorder, unspecified; G89.4 Chronic pain syndrome; M10.9 Gout, unspecified; D64.9 Anemia, unspecified; K21.9 Gastro-esophageal reflux disease without esophagitis; M85.862 Other specified disorders of bone density and structure, left lower leg; R10.9 Unspecified abdominal pain; K29.20 Alcoholic gastritis without bleeding; Z53.21 Procedure and treatment not carried out due to patient leaving prior to being seen by health care provider; S80.212A Abrasion, left knee, initial encounter; S60.512A Abrasion of left hand, initial encounter; X58.XXXA Exposure to other specified factors, initial encounter; S60.511A Abrasion of right hand, initial encounter; Y93.89 Activity, other specified; Y92.89 Other specified places as the place of occurrence of the external cause; Y99.8 Other external cause status; S52.532D Colles' fracture of left radius, subsequent encounter for closed fracture with routine healing; Z88.5 Allergy status to narcotic agent; Z88.1 Allergy status to other antibiotic agents; Z88.8 Allergy status to other drugs, medicaments and biological substances; Z86.711 Personal history of pulmonary embolism; Z82.49 Family history of ischemic heart disease and other diseases of the circulatory system; Z82.5 Family history of asthma and other chronic lower respiratory diseases; Z79.01 Long term (current) use of anticoagulants; Z79.899 Other long term (current) drug therapy; Z68.23 Body mass index [BMI] 23.0-23.9, adult; W18.30XD Fall on same level, unspecified, subsequent encounter

== ENCOUNTER 2019-04-25 01:10 | Inpatient (IN) | payer MEDICARE ==
[2019-04-25] VITALS (7 sets, daily range): BP systolic 128–166; BP diastolic 54–76
[~2019-04-25] VITALS: Ht 180.3 cm; Wt 77.1 kg
[~2019-04-25 01:10] MED LIST changes: +BUSPIRONE HCL10 MG PO; +CETIRIZINE HYDR10 MG PO; +IPRATROPIUM BRO15 ML NAS; +NAPROXEN500 MG PO; +ONDANSETRON HYDR4 MG PO; +OXYCODONE HCL30 MG PO; +PANTOPRAZOLE SO40 MG PO; +VISTARIL50 MG PO; +XARE20MG PO
[2019-04-25 01:44] LABS: BASO % 0.9 % (0.0-1.0); EOS # 0.2 10*3/uL (0.0-0.4); EOS % 6.9 % (1.0-4.0); HEMATOCRIT 25.9 % (42.0-52.0); HEMOGLOBIN 8.5 g/dl (14.0-18.0); LYMPH # 1.1 10*3/uL (1.3-4.4); MEAN CELL VOLUME 84.4 fl (80.0-94.0); MEAN CORPUSCULAR HGB 27.7 pg (27.0-31.0); MEAN CORPUSCULAR HGB CONC 32.8 g/dl (33.0-37.0); MEAN PLATELET VOLUME 7.9 fl (9.6-12.3); MONO # 0.4 10*3/uL (0.1-1.0); MONO % 10.6 % (3.0-9.0); NEUT # 1.8 10*3/uL (2.3-7.9); NEUT % 50.6 % (47.0-73.0); PLATELET COUNT AUTOMATED 167 10*3/uL (130-400); RED BLOOD COUNT 3.07 10*6/uL (4.50-5.90); RED CELL DISTRI WIDTH 14.3 % (0-14.5); WHITE BLOOD COUNT 3.5 10*3/uL (4.8-10.8)
[2019-04-25 01:54] LABS: ACT PARTIAL THROMBO TIME 27.6 SECONDS (20.0-32.1)
[2019-04-25 02:02] LABS: ALBUMIN 3.1 gm/dl (3.1-4.5); ALKALINE PHOSPHATASE 98 U/L (45-117); BUN 12 mg/dl (7-24); CHLORIDE 105 mmol/L (98-107); CREATININE 1.07 mg/dL (0.70-1.30); LIPASE 118 U/L (73-393); POTASSIUM 3.7 mmol/L (3.5-5.1); SGOT/AST 15 IU/L (3-35); SGPT/ALT 15 U/L (12-78); SODIUM 138 mmol/L (136-145); TOTAL PROTEIN 6.6 gm/dL (6.4-8.2)
[2019-04-25 02:04] LABS: TROPONIN I < 0.015 ng/ml (<0.045)
[2019-04-25 02:38] LABS: BILIRUBIN NEGATIVE (NEGATIVE); BLOOD NEGATIVE (NEGATIVE); CLARITY CLEAR (CLEAR); COLOR YELLOW (YELLOW); GLUCOSE NEGATIVE (NEGATIVE); KETONE NEGATIVE (NEGATIVE); LEUKO ESTERASE NEGATIVE (NEGATIVE); NITRITE NEGATIVE (NEGATIVE); PH 6.5 (5.0-9.0); SPECIFIC GRAVITY <= 1.005 (1.005-1.030); UROBILINOGEN 0.2 E.U./dl (0.2-1.0)
[2019-04-25 02:47] LABS: BACTERIA TRACE; WBC 0-2 wbc/hpf (0-5)
[2019-04-25 04:22] LABS: URINE AMPHETAMINES < 1000 (1000ng/ml); URINE BARBITURATES < 200 (200ng/ml); URINE BENZODIAZEPINES > 200 (200ng/ml); URINE CANNABINOIDS (THC) < 50 (50ng/ml); URINE COCAINE < 300 (300ng/ml); URINE METHADONE < 300 (300ng/ml); URINE OPIATES < 300 (300ng/ml)
[2019-04-25 04:23] LABS: URINE PHENCYCLIDINE < 25 (25ng/ml)
--- NOTE | 2019-04-25 05:39 | NUR ---
A 68, admitted to , under the services of VINNIE Sim DO with a diagnosis of BILATERAL CELLULITIS LOWER LEGS AND CHF. Chief complaint is BILATERAL LOWER LEG SWELLING FOR PAST 2-3 DAYS, RED,WARM TO TOUCH LEFT LEG 3+ PITTING TO KNEE AND RIGHT LEG 2+ PITTING TO KNEE. Patient arrived via ambulatory from ER. Monitor applied. Initial assessment completed. Vital signs taken and recorded. VINNIE SIM DO notified of admission to the unit. Orders received. See assessment for past medical history, medications and allergies. Patient and/or family oriented to unit. [facility] visitation policy reviewed. Clothing/patient valuable form completed. MAT WEEMS
--- NOTE | 2019-04-25 08:30 | NUR ---
RODNEY MONCADA [id number] Please refer to the physician's history and physical for past medical history, comorbid conditions, and allergies. Diagnosis: BILATERAL LOWER LEG CELLULITIS CHF Shady Score: 20,LOW OR NO RISK WOUND DESCRIPTIONS: Patient bilateral lower extremities are warm, red and blanchable, Bilateral extremity edema noted at time of assessment. Patient stated this started two days ago and he stated he legs are bigger than normal. No drainage at time of assessment. Patient does have exoriation noted to right lower extremity below the knee he isn't sure how this occured. Surface the patient is resting on: Position Pro SKIN PREVENTION RECOMMENDATION: 1. Pressure redistribution support surface as appropriate 2. Elevate heels 3. Remove boots/TEDS every shift and reapply 4. Head of bed 30 degrees as tolerated 5. Assess nutrition and hydration 6. Manage moisture 7. Avoid the use of containment devices while in bed 8. Use absorptive products on surfaces limit layers of linens on bed 9. Turn and reposition every 1-2 hours in bed and every 1 hour in chair as tolerated 10. Weight shifts every 15 minutes while up in chair 11. Offloading with pillows or device to keep heels elevated off bed 12. Monitor skin at least every shift 13. Inspect under medical devices twice a day Wound Care Recommendations: Heel raiser pro boots to bilateral lower extremities.
--- NOTE | 2019-04-25 08:49 | NUR ---
Dr. Garcia notified of wound care recommendations.
--- NOTE | 2019-04-25 12:51 | NUR ---
NOTIFIED THAT PATIENT IS REFUSING HIS ULTRA SOUND, EXPLAINED TO PATIENT THE IMPORTANCE AND NEED FOR ULTRA SOUND PT STATED " IM NOT HAVING IT DONE RIGHT NOW MAYBE LATER"
--- NOTE | 2019-04-25 20:48 | NUR ---
PATIENT COMPLAINED OF KNEE PAIN AT AN 8/10. OXYCONTIN GIVEN PER PATIENT REQUEST. WILL ASSESS FOR EFFECTIVENESS.
--- NOTE | 2019-04-25 21:40 | NUR ---
PATIENT STATED OXYCONTIN WAS EFFECTIVE. PAIN RATED 3/10.
--- NOTE | 2019-04-26 01:09 | NUR ---
VISTARIL GIVEN FOR COMPLAINTS OF ANXIETY. TYLENOL GIVEN FOR PAIN AT AN 8/10 IN KNEES AND WRIST. WILL ASSESS FOR EFFECTIVENESS.
--- NOTE | 2019-04-26 01:41 | NUR ---
PATIENT STATED VISTARIL AND TYLENOL WERE SLIGHTLY EFFECTIVE. WILL CONTINUE TO MONITOR.
--- NOTE | 2019-04-26 02:54 | NUR ---
PATIENT COMPLAINED OF PAIN AT A 9/10 IN KNEES AND WRIST. OXYCONTIN GIVEN PER PATIENT REQUEST. WILL ASSESS FOR EFFECTIVENESS.
--- NOTE | 2019-04-26 03:50 | NUR ---
PATIENT STATED OXYCONTIN WAS EFFECTIVE. RESTING IN BED. CALL LIGHT WITHIN REACH.
--- NOTE | 2019-04-26 06:46 | NUR ---
PT. COMPLAINING OF CONSTIPATION AND WOULD LIKE "A LAXATIVE" CALLED DR. BOND AND ORDER RECEIVED.
[2019-04-26 08:53] LABS: BASO % 0.4 % (0.0-1.0); EOS # 0.3 10*3/uL (0.0-0.4); HEMATOCRIT 27.8 % (42.0-52.0); HEMOGLOBIN 8.8 g/dl (14.0-18.0); LYMPH # 0.6 10*3/uL (1.3-4.4); LYMPH % 23.8 % (27.0-41.0); MEAN CELL VOLUME 85.3 fl (80.0-94.0); MEAN CORPUSCULAR HGB CONC 31.7 g/dl (33.0-37.0); MEAN PLATELET VOLUME 8.3 fl (9.6-12.3); MONO # 0.2 10*3/uL (0.1-1.0); MONO % 7.8 % (3.0-9.0); NEUT # 1.6 10*3/uL (2.3-7.9); PLATELET COUNT AUTOMATED 175 10*3/uL (130-400); RED BLOOD COUNT 3.26 10*6/uL (4.50-5.90); RED CELL DISTRI WIDTH 14.2 % (0-14.5); WHITE BLOOD COUNT 2.7 10*3/uL (4.8-10.8)
--- NOTE | 2019-04-26 08:57 | NUR ---
PT MEDICATED WITH PRN DULCOLAX FOR C/O CONSTIPATION.
--- NOTE | 2019-04-26 09:00 | NUR ---
Cytogeneticist in to talk to patient. Patient states lives at home with . There are few steps in the home. Physician: [facility]acy: [facility] Home health services: none Patient's level of ADLs: INDEPENDENT Patient has working utilities: all working DME: cane Follow-up physician's appointment after d/c: will be made by hospitalist nurse director upon discharge Does patient want to access PORTAL?: no Discharge plan discussed with patient, patient was ambulating per self in room, he states he lives at home with his , he has a cane to use occasionally for ambulation, is independe in adls, he states he will return home when able and denies any home needs, case management will follow. SUKHDEV ROSAS
[2019-04-26 09:21] LABS: ALBUMIN 2.8 gm/dl (3.1-4.5); BUN 12 mg/dl (7-24); CHLORIDE 107 mmol/L (98-107); CREATININE 1.37 mg/dL (0.70-1.30); PHOSPHOROUS 3.8 mg/dL (2.5-4.9); POTASSIUM 3.3 mmol/L (3.5-5.1); SGOT/AST 12 IU/L (3-35); SGPT/ALT 12 U/L (12-78); SODIUM 142 mmol/L (136-145)
[2019-04-26 09:23] LABS: ALKALINE PHOSPHATASE 86 U/L (45-117); TOTAL PROTEIN 5.9 gm/dL (6.4-8.2)
--- NOTE | 2019-04-26 10:50 | NUR ---
Nutritional Support Services Note: Bilateral lower leg cellulitis. Hx of CHF, HTN, Gerd and alcoholism. Regular diet as ordered. Pt is eating 100% of meals. No further intervention needed at this time. Will provide a night snack as desired., Shira Malone Rdn Ld
[2019-04-26 12:00] VITALS: BP 127/60
[2019-04-26 20:00] VITALS: BP 139/66
--- NOTE | 2019-04-26 20:24 | NUR ---
PATIENT COMPLAINED OF RIGHT/LEFT KNEE PAIN AND LEFT WRIST PAIN AT A 9/10. OXYCONTIN GIVEN PER PATIENT REQUEST. WILL ASSESS FOR EFFECTIVENESS.
--- NOTE | 2019-04-26 20:59 | NUR ---
24 HR chart check completed.
--- NOTE | 2019-04-26 21:11 | NUR ---
PATIENT STATED OXYCONTIN WAS EFFECTIVE. CALL LIGHT WITHIN REACH. BED LOCKED AND IN LOWEST POSITION. SIDE RAILS UP X2.
[2019-04-26 22:10] VITALS: BP 126/78
--- NOTE | 2019-04-26 22:20 | NUR ---
PATIENT COMPLAINED OF FEELING ANXIOUS AND REQUESTED ATIVAN. ATIVAN GIVEN. WILL ASSESS FOR EFFECTIVENESS.
--- NOTE | 2019-04-26 23:07 | NUR ---
PATIENT STATED ATIVAN WAS EFFECTIVE. CALL LIGHT WITHIN REACH. RESTING IN BED.
[2019-04-27] VITALS: BP 162/80
--- NOTE | 2019-04-27 02:36 | NUR ---
PATIENT COMPLAINED OF KNEE AND WRIST PAIN AND FEELING ANXIOUS. OXYCONTIN AND ATIVAN GIVEN PER PATIENT REQUEST. WILL ASSESS EFFECTIVENESS.
--- NOTE | 2019-04-27 03:25 | NUR ---
PT. AWAKE UP TO DESK REQUESTING SOMETHING FOR CONSTIPATION. DULCOLAX GIVEN PER ORDER. SEE MAR.
--- NOTE | 2019-04-27 03:30 | NUR ---
PATIENT STATED OXYCONTIN AND ATIVAN WERE EFFECTIVE.
[2019-04-27 06:01] LABS: BUN 13 mg/dl (7-24); CHLORIDE 105 mmol/L (98-107); CREATININE 1.33 mg/dL (0.70-1.30); POTASSIUM 3.7 mmol/L (3.5-5.1); SODIUM 136 mmol/L (136-145)
[2019-04-27 06:19] LABS: BASO % 0.2 % (0.0-1.0); EOS # 0.4 10*3/uL (0.0-0.4); EOS % 10.1 % (1.0-4.0); HEMATOCRIT 30.1 % (42.0-52.0); HEMOGLOBIN 9.5 g/dl (14.0-18.0); LYMPH # 0.8 10*3/uL (1.3-4.4); LYMPH % 18.9 % (27.0-41.0); MEAN CELL VOLUME 86.5 fl (80.0-94.0); MEAN CORPUSCULAR HGB 27.3 pg (27.0-31.0); MEAN CORPUSCULAR HGB CONC 31.6 g/dl (33.0-37.0); MEAN PLATELET VOLUME 8.3 fl (9.6-12.3); MONO # 0.3 10*3/uL (0.1-1.0); MONO % 6.4 % (3.0-9.0); NEUT # 2.7 10*3/uL (2.3-7.9); NEUT % 64.2 % (47.0-73.0); PLATELET COUNT AUTOMATED 201 10*3/uL (130-400); RED BLOOD COUNT 3.48 10*6/uL (4.50-5.90); RED CELL DISTRI WIDTH 14.1 % (0-14.5); WHITE BLOOD COUNT 4.2 10*3/uL (4.8-10.8)
--- NOTE | 2019-04-27 06:36 | NUR ---
PATIENT COMPLAINED OF FEELING ANXIOUS. ATIVAN GIVEN PER PATIENT REQUEST. WILL ASSESS FOR EFFECTIVENESS.
--- NOTE | 2019-04-27 06:49 | NUR ---
NOTIFIED DR. BOND PATIENT FOUND WONDERING AROUND ON 5E AND RN BROUGHT PATIENT BACK TO FLOOR AND ALSO HE HAS BEEN MORE ANXIOUS AND ACTING MORE CONFUSED TONIGHT THAN YESTERDAY. ATIVAN HAS BEEN GIVEN DIRECTED. NURSING HEADER UP AWARE. PT. MOVED TO ROOM 410 WITH BELONGINGS FROM 403-1.
--- NOTE | 2019-04-27 10:52 | NUR ---
RECIEVED FROM IMC AFTER PT FOUND WANDERING ALL OVER HOSPITAL AND FOUND OUTSIDE PT AWAKE,AWARE, UNSURE OF WHY HE HAS BEEN MOVED, PULLING AT LINES AND MONITOR BILAT SOFT WRIST RESTRAINTS PLACED
--- NOTE | 2019-04-27 12:21 | NUR ---
IV ATIVAN FOR AGITATION HAS BEEN EFFECTIVE
--- NOTE | 2019-04-27 12:30 | NUR ---
IV ATIVAN FOR SEVERE AGITATION AND IT HAS BEEN EFFECTIVE
[2019-04-27 16:00] VITALS: BP 141/76
[2019-04-27 20:00] VITALS: BP 119/42
--- NOTE | 2019-04-27 22:30 | NUR ---
PT AGITATED AND ATTEMPTING TO GET OUT OF BED, COMBATIVE AND CONFUSED. MEDICATED WITH ATIVAN PER PRN ORDER FOR S/S OF DT'S.
[2019-04-28] VITALS: BP 147/69
[2019-04-28 04:00] VITALS: BP 168/76
[2019-04-28 06:04] LABS: BASO % 0.4 % (0.0-1.0); EOS # 0.3 10*3/uL (0.0-0.4); EOS % 10.7 % (1.0-4.0); HEMATOCRIT 26.1 % (42.0-52.0); HEMOGLOBIN 8.3 g/dl (14.0-18.0); LYMPH # 0.7 10*3/uL (1.3-4.4); LYMPH % 27.9 % (27.0-41.0); MEAN CELL VOLUME 84.7 fl (80.0-94.0); MEAN CORPUSCULAR HGB 26.9 pg (27.0-31.0); MEAN CORPUSCULAR HGB CONC 31.8 g/dl (33.0-37.0); MEAN PLATELET VOLUME 8.5 fl (9.6-12.3); MONO # 0.2 10*3/uL (0.1-1.0); MONO % 9.8 % (3.0-9.0); NEUT # 1.3 10*3/uL (2.3-7.9); NEUT % 51.2 % (47.0-73.0); PLATELET COUNT AUTOMATED 155 10*3/uL (130-400); RED BLOOD COUNT 3.08 10*6/uL (4.50-5.90); WHITE BLOOD COUNT 2.4 10*3/uL (4.8-10.8)
[2019-04-28 06:11] LABS: ALBUMIN 2.7 gm/dl (3.1-4.5); ALKALINE PHOSPHATASE 75 U/L (45-117); BUN 13 mg/dl (7-24); CHLORIDE 110 mmol/L (98-107); PHOSPHOROUS 3.6 mg/dL (2.5-4.9); POTASSIUM 3.9 mmol/L (3.5-5.1); SGOT/AST 9 IU/L (3-35); SGPT/ALT 11 U/L (12-78); SODIUM 141 mmol/L (136-145); TOTAL PROTEIN 5.9 gm/dL (6.4-8.2)
[2019-04-28 06:17] LABS: CREATININE 1.07 mg/dL (0.70-1.30)
[2019-04-28 08:00] VITALS: BP 180/77
--- NOTE | 2019-04-28 08:00 | NUR ---
PT AAOX3. PT DENIES C/O ANXIETY, AGITATION OR S/S OF DT'S AT THIS TIME. PT DENIES C/O. WILL CONTINUE TO MONITOR PT.
--- NOTE | 2019-04-28 09:00 | NUR ---
DR PETERS IN TO SEE PT. ORDER RECEIVED THAT PT IS TO BE MADE TELEMETRY.
--- NOTE | 2019-04-28 09:00 | NUR ---
PT REFUSED ASC NARES. WILL ASK AGAIN LATER.
--- NOTE | 2019-04-28 10:00 | NUR ---
PT ASKING WHEN DOCTORS WILL BE ROUNDING. HE WANTS TO GO HOME..."I JUST CAN'T TAKE ALL THIS" I INFORMED HIM THAT THE DOCTORS WILL BE ROUNDING SOON.
[2019-04-28 12:00] VITALS: BP 158/74
--- NOTE | 2019-04-28 13:40 | NUR ---
MEDICATED PT PER PRN ORDER WITH DULCOLAX FOR C/O CONSTIPATION.
[2019-04-28 16:00] VITALS: BP 145/73
--- NOTE | 2019-04-28 17:00 | NUR ---
NO RESULTS FROM EARLIER DULCOLAX. UPDATED DR CARMICHAEL. NEW ORDERS RECEIVED.
--- NOTE | 2019-04-28 17:02 | NUR ---
PT TRANSFERED TO 521 VIA . PT REPORT GIVEN TO RECEIVING NURSE.
[2019-04-28 20:00] VITALS: BP 153/82
--- NOTE | 2019-04-28 20:17 | NUR ---
ICE APPLIED TO LEFT WRIST AREA FOR PAIN PER PT REQUEST.
--- NOTE | 2019-04-28 22:00 | NUR ---
ATIVAN GIVEN PER ORDERS FOR ANXIETY. PT STOPPED ME WHILE WALKING IN HALLS TO VOICE COMPLAINTS. MAIN LINE STATION ENGINEER PER REQUEST. SEE OCT. CALL LIGHT IN REACH. SITTING ON BED. VSS.
--- NOTE | 2019-04-28 22:36 | NUR ---
PER VOICING THAT ANXIETY HAS DECREASED AFTER ATIVAN. WILL CONTINUE TO MONITOR. WALKING HALLS WITH EASE. NO SXS OF DISTRESS NOTED.
--- NOTE | 2019-04-28 23:45 | NUR ---
DR. HENLEY CAME TO THE FLOOR TO SPEAK TO PATIENT PERTAINING TO PLAN OF CARE; NEW ORDERS PLACED.
--- NOTE | 2019-04-28 23:55 | NUR ---
MEDICATED WITH ATIVAN SLOW IV PUSH PER M.D. ORDERS FOR PT'S ANXIETY/AGITATION.
[2019-04-29] VITALS: BP 155/70
--- NOTE | 2019-04-29 | NUR ---
MEDICATED WITH BENADRYL FOR CONTINUED ANXIETY/AGIATION PER M.D. ORDERS.
--- NOTE | 2019-04-29 00:15 | NUR ---
MEDICATED WITH PO ATIVAN FOR CONTINUED ANXIETY/AGITATION. PT. REDIRECTED MULIPLE TIMES. PRESENT IN ROOM. WILL CONTINUE TO MONITOR.
--- NOTE | 2019-04-29 00:20 | NUR ---
PT. CAME TO NURSES STATION & STATED THAT HE WANTED TO GO TO [facility]. HAS BEEN AMBULATING IN HALLWAY & BECOMING INCREASINGLY AGITATED.
--- NOTE | 2019-04-29 02:40 | NUR ---
RESTING IN BED WITH EYES CLOSED. MEDICATIONS GIVEN EARLIER APPARENTLY EFFECTIVE.
--- NOTE | 2019-04-29 03:05 | NUR ---
UP WANDERING IN HALLWAY & ALMOST WENT INTO ANOTHER PATIENT'S ROOM. REDIRECTED BACK TO HIS ROOM & WENT TO BATHROOM & THEN BACK TO BED.
[2019-04-29 08:00] VITALS: BP 158/62
[2019-04-29 08:33] LABS: BASO % 0.3 % (0.0-1.0); EOS # 0.3 10*3/uL (0.0-0.4); EOS % 8.4 % (1.0-4.0); HEMATOCRIT 24.8 % (42.0-52.0); LYMPH # 0.7 10*3/uL (1.3-4.4); LYMPH % 21.7 % (27.0-41.0); MEAN CELL VOLUME 83.8 fl (80.0-94.0); MEAN CORPUSCULAR HGB CONC 32.3 g/dl (33.0-37.0); MEAN PLATELET VOLUME 7.9 fl (9.6-12.3); MONO # 0.3 10*3/uL (0.1-1.0); MONO % 10.2 % (3.0-9.0); NEUT % 59.1 % (47.0-73.0); PLATELET COUNT AUTOMATED 124 10*3/uL (130-400); RED BLOOD COUNT 2.96 10*6/uL (4.50-5.90); WHITE BLOOD COUNT 3.3 10*3/uL (4.8-10.8)
[2019-04-29 08:49] LABS: ALBUMIN 2.8 gm/dl (3.1-4.5); ALKALINE PHOSPHATASE 67 U/L (45-117); BUN 12 mg/dl (7-24); CHLORIDE 110 mmol/L (98-107); CREATININE 1.06 mg/dL (0.70-1.30); POTASSIUM 3.6 mmol/L (3.5-5.1); SGOT/AST 8 IU/L (3-35); SGPT/ALT 10 U/L (12-78); SODIUM 140 mmol/L (136-145); TOTAL PROTEIN 5.9 gm/dL (6.4-8.2)
[2019-04-29 12:00] VITALS: BP 172/82
--- NOTE | 2019-04-29 13:29 | NUR ---
NOTIFIED DR CARMICHAEL THAT PATIENT PLANS OF GOING AMA.
--- NOTE | 2019-04-29 15:06 | NUR ---
PATIENT LEFT AMA WITHOUT LETTING NURSE KNOW HE WAS LEAVING.
== END 2019-04-29 15:06 | disposition left against medical advice (07) | DRG 602 ==
LOC: ED 01:10 → 4E 04:38 → EDHOLD 04:38 → 4E 05:29 → ICCU 04-27 10:47 → 5E 04-28 16:30
PROVIDERS: Hospitalist; Internal Medicine; Physician Assistant; Student in an Organized Health Care Education/Training Program; ADMIT Family Medicine
DX: L03.116 Cellulitis of left lower limb (principal); G93.41 Metabolic encephalopathy; I50.31 Acute diastolic (congestive) heart failure; N17.0 Acute kidney failure with tubular necrosis; L03.115 Cellulitis of right lower limb; I11.0 Hypertensive heart disease with heart failure; D72.819 Decreased white blood cell count, unspecified; D72.1 Eosinophilia; K22.2 Esophageal obstruction; F10.10 Alcohol abuse, uncomplicated; K29.20 Alcoholic gastritis without bleeding; G89.29 Other chronic pain; R10.9 Unspecified abdominal pain; K21.9 Gastro-esophageal reflux disease without esophagitis; K44.9 Diaphragmatic hernia without obstruction or gangrene; D64.9 Anemia, unspecified; J32.9 Chronic sinusitis, unspecified; M10.9 Gout, unspecified; Z53.21 Procedure and treatment not carried out due to patient leaving prior to being seen by health care provider; F41.9 Anxiety disorder, unspecified; M19.90 Unspecified osteoarthritis, unspecified site; E55.9 Vitamin D deficiency, unspecified; S62.102A Fracture of unspecified carpal bone, left wrist, initial encounter for closed fracture; X58.XXXA Exposure to other specified factors, initial encounter; Y93.89 Activity, other specified; Y92.89 Other specified places as the place of occurrence of the external cause; Y99.8 Other external cause status; Z88.5 Allergy status to narcotic agent; Z88.8 Allergy status to other drugs, medicaments and biological substances; Z88.1 Allergy status to other antibiotic agents; Z86.711 Personal history of pulmonary embolism; Z82.49 Family history of ischemic heart disease and other diseases of the circulatory system; Z82.5 Family history of asthma and other chronic lower respiratory diseases; Z79.01 Long term (current) use of anticoagulants; Z79.899 Other long term (current) drug therapy

== ENCOUNTER 2019-05-27 10:14 | Inpatient (IN) | payer MEDICARE ==
[~2019-05-27] VITALS: Ht 180.3 cm; Wt 79.4 kg
[2019-05-27 10:16] VITALS: BP 146/74
[2019-05-27 10:42] LABS: BASO % 0.6 % (0.0-1.0); EOS # 0.2 10*3/uL (0.0-0.4); EOS % 3.4 % (1.0-4.0); HEMATOCRIT 30.5 % (42.0-52.0); HEMOGLOBIN 9.8 g/dl (14.0-18.0); LYMPH # 1.6 10*3/uL (1.3-4.4); LYMPH % 33.8 % (27.0-41.0); MEAN CELL VOLUME 80.7 fl (80.0-94.0); MEAN CORPUSCULAR HGB 25.9 pg (27.0-31.0); MEAN CORPUSCULAR HGB CONC 32.1 g/dl (33.0-37.0); MEAN PLATELET VOLUME 7.8 fl (9.6-12.3); MONO # 0.3 10*3/uL (0.1-1.0); MONO % 6.8 % (3.0-9.0); NEUT # 2.6 10*3/uL (2.3-7.9); NEUT % 55.2 % (47.0-73.0); PLATELET COUNT AUTOMATED 187 10*3/uL (130-400); RED BLOOD COUNT 3.78 10*6/uL (4.50-5.90); RED CELL DISTRI WIDTH 14.5 % (0-14.5); WHITE BLOOD COUNT 4.7 10*3/uL (4.8-10.8)
[2019-05-27 10:53] LABS: ACT PARTIAL THROMBO TIME 27.9 SECONDS (20.0-32.1)
[2019-05-27 10:55] LABS: BILIRUBIN NEGATIVE (NEGATIVE); BLOOD NEGATIVE (NEGATIVE); CLARITY CLEAR (CLEAR); COLOR YELLOW (YELLOW); GLUCOSE NEGATIVE (NEGATIVE); KETONE NEGATIVE (NEGATIVE); LEUKO ESTERASE NEGATIVE (NEGATIVE); NITRITE NEGATIVE (NEGATIVE); PH 6.5 (5.0-9.0); SPECIFIC GRAVITY <= 1.005 (1.005-1.030); UROBILINOGEN 0.2 E.U./dl (0.2-1.0)
[2019-05-27 11:04] LABS: ALBUMIN 4.2 gm/dl (3.1-4.5); ALKALINE PHOSPHATASE 91 U/L (45-117); BUN 44 mg/dl (7-24); CHLORIDE 91 mmol/L (98-107); CREATININE 2.18 mg/dL (0.70-1.30); POTASSIUM 3.8 mmol/L (3.5-5.1); SGOT/AST 18 IU/L (3-35); SGPT/ALT 16 U/L (12-78); SODIUM 128 mmol/L (136-145)
[2019-05-27 11:06] LABS: URINE AMPHETAMINES < 1000 (1000ng/ml); URINE BARBITURATES < 200 (200ng/ml); URINE BENZODIAZEPINES < 200 (200ng/ml); URINE CANNABINOIDS (THC) < 50 (50ng/ml); URINE COCAINE < 300 (300ng/ml); URINE METHADONE < 300 (300ng/ml); URINE OPIATES < 300 (300ng/ml)
[2019-05-27 11:07] LABS: URINE PHENCYCLIDINE < 25 (25ng/ml)
[2019-05-27 11:07] LABS: TROPONIN I < 0.015 ng/ml (<0.045)
--- NOTE | 2019-05-27 11:48 | NUR ---
PT WITH MULTIPLE SCABBED/ECCHYMOTIC AND REDDENED AREAS NOTED TO BUE,NO OPEN DRAINING AREAS NOTED NO TX REQUIRED.
[2019-05-27 12:00] VITALS: BP 142/67
[2019-05-27 12:15] VITALS: BP 149/68
--- NOTE | 2019-05-27 12:15 | NUR ---
A 69, admitted to , under the services of DAVE Perez DO with a diagnosis of HYPONATREMIA. Chief complaint is HEADACHE. Patient arrived via stretcher from ER. Monitor applied. Initial assessment completed. Vital signs taken and recorded. DAVE PEREZ DO notified of admission to the unit. Orders received. See assessment for past medical history, medications and allergies. Patient and/or family oriented to unit. [facility] visitation policy reviewed. Clothing/patient valuable form completed. ARISTEO CLINTON
[2019-05-27] MEDS ORDERED: OXYCODONE HCL20 M1 PO (13:45)
[2019-05-27] MEDS ORDERED: SEROQUEL50 MG PO (13:59)
[2019-05-27] MEDS ORDERED: CETIRIZINE HCL10 MG PO (13:59)
[2019-05-27] MEDS ORDERED: TRAZODONE100 MG PO (14:01)
[2019-05-27] MEDS ORDERED: SODIUM BICARBO650 MG PO (14:03)
[2019-05-27] MEDS ORDERED: NATURE'S BLEND F1 MG PO (14:04)
[2019-05-27] MEDS ORDERED: Metolazone5 MG PO (14:05)
[2019-05-27] MEDS ORDERED: FLONASE ALLERG9.9 ML NAS (14:06)
[2019-05-27] MEDS ORDERED: VITAMIN B-1100 M1 PO (14:06)
[2019-05-27] MEDS ORDERED: FUROSEMIDE40 MG PO (14:07)
[2019-05-27] MEDS ORDERED: PROVENTIL HFA6.7 GM INH (14:07)
--- NOTE | 2019-05-27 14:09 | NUR ---
HOME MEDICATIONS VARIFIED, PT USES [facility] IN [place]. CALLED BOTH PHARMACIES AND GOT THEIR ACTIVE MEDICATION PROFILES. PT STATES HE NO LONGER TAKES XARELTO, DOES NOT TAKE NAPROXEN DUE TO INTOLLERANCE. THE PHARMACY STILL HAD BOTH OF THOSE MEDICATIONS ON HIS ACTIVE LIST, ADDED TO HOME MEDICTION LIST.
--- NOTE | 2019-05-27 15:25 | NUR ---
PT REQUESTED TO LEAVE AMA. AMA PAPER SIGNED. IV REMOVED. PT LEFT AMA
--- NOTE | 2019-05-27 16:32 | NUR ---
PT LEFT AMA
== END 2019-05-27 16:32 | disposition left against medical advice (07) | DRG 640 ==
LOC: ED 10:14 → EDHOLD 11:30 → 5E 11:42
PROVIDERS: Emergency Medicine; ADMIT Emergency Medicine
DX: E87.1 Hypo-osmolality and hyponatremia (principal); N17.0 Acute kidney failure with tubular necrosis; F10.220 Alcohol dependence with intoxication, uncomplicated; F41.9 Anxiety disorder, unspecified; I50.9 Heart failure, unspecified; G89.29 Other chronic pain; R10.9 Unspecified abdominal pain; K21.9 Gastro-esophageal reflux disease without esophagitis; M10.9 Gout, unspecified; I11.0 Hypertensive heart disease with heart failure; M19.90 Unspecified osteoarthritis, unspecified site; D64.9 Anemia, unspecified; E87.8 Other disorders of electrolyte and fluid balance, not elsewhere classified; R73.9 Hyperglycemia, unspecified; K44.9 Diaphragmatic hernia without obstruction or gangrene; E55.9 Vitamin D deficiency, unspecified; Z88.8 Allergy status to other drugs, medicaments and biological substances; Z79.899 Other long term (current) drug therapy; Z88.6 Allergy status to analgesic agent; Z86.711 Personal history of pulmonary embolism; Z90.89 Acquired absence of other organs; Z82.49 Family history of ischemic heart disease and other diseases of the circulatory system; Z83.6 Family history of other diseases of the respiratory system

== ENCOUNTER 2019-06-03 11:41 | Emergency (ER) | payer MEDICARE ==
[~2019-06-03] VITALS: Ht 180.3 cm; Wt 79.4 kg
[~2019-06-03 11:41] MED LIST changes: +CETIRIZINE HCL10 MG PO; +FUROSEMIDE40 MG PO; +Metolazone5 MG PO; +NATURE'S BLEND F1 MG PO; +OXYCODONE HCL20 M1 PO; +PROVENTIL HFA6.7 GM INH; +SEROQUEL50 MG PO; +SODIUM BICARBO650 MG PO; +TRAZODONE100 MG PO; +VITAMIN B-1100 M1 PO
[2019-06-03 12:34] LABS: BILIRUBIN NEGATIVE (NEGATIVE); BLOOD NEGATIVE (NEGATIVE); CLARITY CLEAR (CLEAR); COLOR YELLOW (YELLOW); GLUCOSE NEGATIVE (NEGATIVE); KETONE NEGATIVE (NEGATIVE); LEUKO ESTERASE NEGATIVE (NEGATIVE); NITRITE NEGATIVE (NEGATIVE); PH 7.5 (5.0-9.0); SPECIFIC GRAVITY <= 1.005 (1.005-1.030); UROBILINOGEN 0.2 E.U./dl (0.2-1.0)
[2019-06-03 12:44] LABS: EPITHELIAL CELLS 0-2
[2019-06-03 12:46] LABS: EOS # 0.1 10*3/uL (0.0-0.4); EOS % 4.6 % (1.0-4.0); HEMATOCRIT 25.1 % (42.0-52.0); HEMOGLOBIN 8.2 g/dl (14.0-18.0); LYMPH % 33.7 % (27.0-41.0); MEAN CELL VOLUME 80.4 fl (80.0-94.0); MEAN CORPUSCULAR HGB 26.3 pg (27.0-31.0); MEAN CORPUSCULAR HGB CONC 32.7 g/dl (33.0-37.0); MEAN PLATELET VOLUME 8.6 fl (9.6-12.3); MONO # 0.4 10*3/uL (0.1-1.0); MONO % 11.4 % (3.0-9.0); NEUT # 1.5 10*3/uL (2.3-7.9); PLATELET COUNT AUTOMATED 118 10*3/uL (130-400); RED BLOOD COUNT 3.12 10*6/uL (4.50-5.90); RED CELL DISTRI WIDTH 14.8 % (0-14.5); WHITE BLOOD COUNT 3.1 10*3/uL (4.8-10.8)
[2019-06-03 12:47] LABS: ALBUMIN 3.4 gm/dl (3.1-4.5); ALKALINE PHOSPHATASE 83 U/L (45-117); BUN 30 mg/dl (7-24); CHLORIDE 100 mmol/L (98-107); CREATININE 1.54 mg/dL (0.70-1.30); LIPASE 138 U/L (73-393); POTASSIUM 3.7 mmol/L (3.5-5.1); SGOT/AST 26 IU/L (3-35); SGPT/ALT 17 U/L (12-78); SODIUM 136 mmol/L (136-145); TOTAL PROTEIN 6.8 gm/dL (6.4-8.2)
[2019-06-03 12:53] LABS: TROPONIN I < 0.015 ng/ml (<0.045)
[2019-06-03 12:54] LABS: ACT PARTIAL THROMBO TIME 27.4 SECONDS (20.0-32.1)
== END 2019-06-03 14:15 | disposition home or self-care (01) ==
LOC: ED 11:41
PROVIDERS: Physician Assistant
DX: D61.818 Other pancytopenia (principal); R60.0 Localized edema; F10.929 Alcohol use, unspecified with intoxication, unspecified; I50.9 Heart failure, unspecified; I11.0 Hypertensive heart disease with heart failure; K21.9 Gastro-esophageal reflux disease without esophagitis; M19.90 Unspecified osteoarthritis, unspecified site; Y90.9 Presence of alcohol in blood, level not specified

== ENCOUNTER 2019-07-10 13:40 | Inpatient (IN) | payer MEDICARE ==
[~2019-07-10] VITALS: Ht 180.3 cm; Wt 76.2 kg
[2019-07-10 13:56] VITALS: BP 165/81
[2019-07-10 14:14] LABS: BASO % 0.4 % (0.0-1.0); EOS # 0.1 10*3/uL (0.0-0.4); EOS % 2.5 % (1.0-4.0); HEMATOCRIT 29.1 % (42.0-52.0); HEMOGLOBIN 9.4 g/dl (14.0-18.0); LYMPH # 1.1 10*3/uL (1.3-4.4); LYMPH % 25.4 % (27.0-41.0); MEAN CELL VOLUME 83.4 fl (80.0-94.0); MEAN CORPUSCULAR HGB 26.9 pg (27.0-31.0); MEAN CORPUSCULAR HGB CONC 32.3 g/dl (33.0-37.0); MEAN PLATELET VOLUME 8.4 fl (9.6-12.3); MONO # 0.4 10*3/uL (0.1-1.0); MONO % 9.8 % (3.0-9.0); NEUT # 2.8 10*3/uL (2.3-7.9); NEUT % 61.7 % (47.0-73.0); PLATELET COUNT AUTOMATED 130 10*3/uL (130-400); RED BLOOD COUNT 3.49 10*6/uL (4.50-5.90); RED CELL DISTRI WIDTH 17.8 % (0-14.5); WHITE BLOOD COUNT 4.5 10*3/uL (4.8-10.8)
[2019-07-10 14:24] LABS: ACT PARTIAL THROMBO TIME 23.6 SECONDS (20.0-32.1); INTERNATIONAL NORM RATIO 1.1 (2.0-3.5)
[2019-07-10 14:31] LABS: ALBUMIN 3.5 gm/dl (3.1-4.5); ALKALINE PHOSPHATASE 114 U/L (45-117); BUN 28 mg/dl (7-24); CHLORIDE 104 mmol/L (98-107); CREATININE 1.35 mg/dL (0.70-1.30); POTASSIUM 4.7 mmol/L (3.5-5.1); SGOT/AST 24 IU/L (3-35); SGPT/ALT 26 U/L (12-78); SODIUM 135 mmol/L (136-145)
[2019-07-10 14:36] LABS: TROPONIN I < 0.015 ng/ml (<0.045)
[2019-07-10 14:56] VITALS: BP 146/72
[2019-07-10 16:30] VITALS: BP 156/66
--- NOTE | 2019-07-10 16:30 | NUR ---
A 69, admitted to , under the services of VINNIE Sim DO with a diagnosis of CHEST PAIN. Chief complaint is CHEST PAIN. Patient arrived via stretcher from ER. Monitor applied. Initial assessment completed. Vital signs taken and recorded. VINNIE SIM DO notified of admission to the unit. Orders received. See assessment for past medical history, medications and allergies. Patient and/or family oriented to unit. [facility] visitation policy reviewed. Clothing/patient valuable form completed. ANTIONE NAVARRETE
[2019-07-10] MEDS ORDERED: PEPCID20 MG PO (17:03)
[2019-07-10] MEDS ORDERED: ATIVAN1 MG PO (17:08)
[2019-07-10] MEDS ORDERED: ALLEGRA ALLERGY60 M2 PO (17:09)
--- NOTE | 2019-07-10 17:40 | NUR ---
CALLED DR. RODRIGUEZ ANSWERING SERVICE THEY WILL BEEP HIM FOR CONSULT.
--- NOTE | 2019-07-10 18:30 | NUR ---
TOLERATED ROUTINE ATIVAN PER ORDER FOR ANXIETY. CALL LIGHT IN REACH.
--- NOTE | 2019-07-10 19:55 | NUR ---
CALLED DR. LESLIE MADE AWARE PT HOME MEDICATIONS VERIFIED AND NEED ORDERED.
[2019-07-10 20:00] VITALS: BP 163/73
--- NOTE | 2019-07-10 20:00 | NUR ---
SLEEPING IN BED. RESP-EASY AND REGULAR. NO C/O AT THIS TIME. CALL LIGHT IN REACH. SEE SHIFT ASSESSMENT.
--- NOTE | 2019-07-10 21:26 | NUR ---
PT SLEEPING IN BED, AWAKENS EASILY. REFUSED ATIVAN AT THIS TIME. CALL LIGHT IN REACH.
[2019-07-11] VITALS: BP 184/87
--- NOTE | 2019-07-11 00:38 | NUR ---
REQUESTING ATIVAN. GIVEN 2AM DOSE EARLY D/T NOT RECEIVING PRIOR DOSE. UP TO BATHROOM PER SELF. WILL CONTINUE TO MONITOR.
[2019-07-11 06:02] LABS: ALBUMIN 3.1 gm/dl (3.1-4.5); ALKALINE PHOSPHATASE 86 U/L (45-117); BUN 24 mg/dl (7-24); CHLORIDE 111 mmol/L (98-107); CREATININE 1.16 mg/dL (0.70-1.30); PHOSPHOROUS 3.1 mg/dL (2.5-4.9); POTASSIUM 4.3 mmol/L (3.5-5.1); SGOT/AST 17 IU/L (3-35); SGPT/ALT 19 U/L (12-78); SODIUM 142 mmol/L (136-145); TOTAL PROTEIN 6.2 gm/dL (6.4-8.2)
--- NOTE | 2019-07-11 06:30 | NUR ---
DR. LESLIE NOTIFIED THAT PATIENT IS COMPLAINING OF A STUFFED AND RUNNY NOSE AND WOULD LIKE SOMETHING FOR IT.
[2019-07-11 07:54] LABS: HEMATOCRIT 29.6 % (42.0-52.0); HEMOGLOBIN 9.5 g/dl (14.0-18.0); MEAN CELL VOLUME 84.8 fl (80.0-94.0); MEAN CORPUSCULAR HGB 27.2 pg (27.0-31.0); MEAN CORPUSCULAR HGB CONC 32.1 g/dl (33.0-37.0); MEAN PLATELET VOLUME 8.2 fl (9.6-12.3); PLATELET COUNT AUTOMATED 107 10*3/uL (130-400); RED BLOOD COUNT 3.49 10*6/uL (4.50-5.90); RED CELL DISTRI WIDTH 17.8 % (0-14.5); WHITE BLOOD COUNT 2.9 10*3/uL (4.8-10.8)
--- NOTE | 2019-07-11 09:00 | NUR ---
Talent Sourcer in to talk to patient. Patient states lives at home with . There are few steps in the home. Physician: claudia chavarria Pharmacy: [facility] in [place], [place] Home health services: none Patient's level of ADLs: INDEPENDENT Patient has working utilities: all working DME: cane Follow-up physician's appointment after d/c: will be made by hospitalist nurse director upon discharge Does patient want to access PORTAL?: no Discharge plan discussed with patient, he lives at home with , he is independent in adls and ambulation with a cane, he states he will return home when medically stable and denies any home needs, he stated his brother in law brought him to the hospital and he will have his or other family member take him home, case management will follow. SUKHDEV ROSAS
[2019-07-11 09:36] VITALS: BP 180/90
[2019-07-11 11:24] VITALS: BP 190/80
--- NOTE | 2019-07-11 11:24 | NUR ---
AMADA FRANCO NOTIFIED OF RECHECK BP. PT STATES HE'S HAVING BRING IN NISOLDIPINE SINCE WE DON'T HAVE IT HERE.
[2019-07-11 13:07] VITALS: BP 190/80
[2019-07-11 14:07] VITALS: BP 182/80; BP 182/90
[2019-07-11] MEDS ORDERED: Vitamin D PO (14:13)
[2019-07-11] MEDS ORDERED: HOMEMED PO (14:13)
[2019-07-11] MEDS ORDERED: CARVEDILOL6.25 MG PO (14:13)
--- NOTE | 2019-07-11 15:45 | NUR ---
PT DISCHARGED AT THIS TIME. IV REMOVED AND PRESSURE DRESSING APPLIED. HEART MONITOR RETURNED TO FLOOR. VERBALIZED UNDERSTANDING OF DISCHARGE INSTRUCTIONS.
== END 2019-07-11 15:45 | disposition home or self-care (01) | DRG 880 ==
LOC: ED 13:40 → 4E 15:34 → EDHOLD 15:34 → 4E 15:49
PROVIDERS: Emergency Medicine; Registered Nurse; ADMIT Family Medicine
DX: F41.9 Anxiety disorder, unspecified (principal); E87.1 Hypo-osmolality and hyponatremia; E44.0 Moderate protein-calorie malnutrition; I50.32 Chronic diastolic (congestive) heart failure; D61.818 Other pancytopenia; F10.10 Alcohol abuse, uncomplicated; I11.0 Hypertensive heart disease with heart failure; M10.9 Gout, unspecified; M19.90 Unspecified osteoarthritis, unspecified site; K21.9 Gastro-esophageal reflux disease without esophagitis; E55.9 Vitamin D deficiency, unspecified; G89.29 Other chronic pain; E87.8 Other disorders of electrolyte and fluid balance, not elsewhere classified; Z88.5 Allergy status to narcotic agent; Z88.8 Allergy status to other drugs, medicaments and biological substances; Z82.49 Family history of ischemic heart disease and other diseases of the circulatory system; Z82.5 Family history of asthma and other chronic lower respiratory diseases; Z86.711 Personal history of pulmonary embolism; Z79.899 Other long term (current) drug therapy; Z87.891 Personal history of nicotine dependence; Z71.41 Alcohol abuse counseling and surveillance of alcoholic; Z68.23 Body mass index [BMI] 23.0-23.9, adult

== ENCOUNTER 2019-07-23 07:02 | Inpatient (IN) | payer MEDICARE ==
[~2019-07-23] VITALS: Ht 180.3 cm; Wt 77.2 kg
[~2019-07-23 07:02] MED LIST changes: +ALLEGRA ALLERGY60 M2 PO; +CARVEDILOL6.25 MG PO; +HOMEMED PO; +Vitamin D PO
[2019-07-23 07:03] VITALS: BP 143/84
[2019-07-23 08:20] LABS: BASO % 1.2 % (0.0-1.0); EOS # 0.1 10*3/uL (0.0-0.4); EOS % 3.6 % (1.0-4.0); HEMOGLOBIN 9.6 g/dl (14.0-18.0); LYMPH # 1.3 10*3/uL (1.3-4.4); LYMPH % 39.2 % (27.0-41.0); MEAN CELL VOLUME 82.6 fl (80.0-94.0); MEAN CORPUSCULAR HGB 28.3 pg (27.0-31.0); MEAN CORPUSCULAR HGB CONC 34.3 g/dl (33.0-37.0); MEAN PLATELET VOLUME 7.8 fl (9.6-12.3); MONO # 0.3 10*3/uL (0.1-1.0); MONO % 9.2 % (3.0-9.0); NEUT # 1.6 10*3/uL (2.3-7.9); NEUT % 46.8 % (47.0-73.0); PLATELET COUNT AUTOMATED 106 10*3/uL (130-400); RED BLOOD COUNT 3.39 10*6/uL (4.50-5.90); RED CELL DISTRI WIDTH 16.8 % (0-14.5); WHITE BLOOD COUNT 3.4 10*3/uL (4.8-10.8)
[2019-07-23 08:33] LABS: ACT PARTIAL THROMBO TIME 25.3 SECONDS (20.0-32.1)
[2019-07-23 08:38] LABS: ALBUMIN 3.5 gm/dl (3.1-4.5); ALKALINE PHOSPHATASE 97 U/L (45-117); BUN 22 mg/dl (7-24); CHLORIDE 107 mmol/L (98-107); CREATININE 1.17 mg/dL (0.70-1.30); LIPASE 159 U/L (73-393); POTASSIUM 3.8 mmol/L (3.5-5.1); SGOT/AST 208 IU/L (3-35); SGPT/ALT 121 U/L (12-78); SODIUM 138 mmol/L (136-145); TOTAL PROTEIN 6.8 gm/dL (6.4-8.2)
[2019-07-23 08:39] LABS: TROPONIN I < 0.015 ng/ml (<0.045)
--- NOTE | 2019-07-23 11:32 | NUR ---
PATIENT AT ULTRASOUND AT THIS TIME.
[2019-07-23] MEDS ORDERED: VISTARIL50 MG PO (11:57)
[2019-07-23] MEDS ORDERED: FLOMAX0.4 MG PO (11:58)
[2019-07-23] MEDS ORDERED: IMDUR SA30 MG PO (11:58)
[2019-07-23 12:00] VITALS: BP 150/64
[2019-07-23] MEDS ORDERED: LOPRESSOR25 MG PO (12:00)
[2019-07-23] MEDS ORDERED: REGLAN10 M1 PO (12:01)
--- NOTE | 2019-07-23 12:13 | NUR ---
[place] STAFF SPOKE WITH PATIENT ABOUT [facility]. PATIENT MEETS [facility]. PATIENT SPOKE ABOUT ABOUT FOLLOWING UP WITH [facility]ET[facility]. [place] STAFF REVIEWED REFERRAL OPTIONS AND WILL PROVIDE PATIENT WITH INFO ON THE VIVITROL SHOT. [place] STAFF WILL FOLLOW UP WITH PATIENT. LAY CABRERA B.A. CASING FINISHER AND STUFFER
--- NOTE | 2019-07-23 12:26 | NUR ---
[facility] 69, admitted to , under the services of HORTENSIA Townsend DO with a diagnosis of DYSPHAGIA. Chief complaint is SORE THROAT. Patient arrived via bed from ER. Monitor applied. Initial assessment completed. Vital signs taken and recorded. HORTENSIA TOWNSEND DO notified of admission to the unit. Orders received. See assessment for past medical history, medications and allergies. Patient and/or family oriented to unit. [facility] visitation policy reviewed. Clothing/patient valuable form completed. DARIAN VERGARA
--- NOTE | 2019-07-23 13:10 | NUR ---
DR. CRAWFORD NOTIFIED OF CONSULT.
--- NOTE | 2019-07-23 14:11 | NUR ---
SPEECH PATHOLOGY Patient was seen for clinical swallowing evaluation as per orders due to dysphagia. Patient was admitted through ED with c/o cough and sore throat. He is also requesting [facility] for ETOH dependence and withdrawal. History includes esophageal stricture, esophageal dilations, GERD, hiatal hernia, ARF, CHF, anxiety and pulmonary embolism. he is ordered a regular diet and thin liquid. Patient's lunch tray was present however his intake was minimal as he was stating that he was "too sick." He frequently spit out phlegm, was restless and requesting the nurse for medications during this encounter. He was agreeable to taking a couple bites of ice cream and tea during the assessment. He displayed safe tolerance for these items. He politely refused any other item, stating he did not feel up to it. Patient complained that he has been having difficulty swallowing "for a while" with a feeling that food is sticking in his throat. As he reported not feeling up to eating solid food and ill overall, recommend continued assessment tomorrow. Recommend he remain on present diet at this time. Results and francisco. were shared with patient's nurse who verbalized understanding. Thank you for this referral. TRINA SCOTT MSCCC-LIFE AGENT
--- NOTE | 2019-07-23 14:58 | NUR ---
Occupational Therapy evaluation offered. Patient reported he didn't feel well. Lunch tray sitting; untouched. Patient c/o sore throat. Angelina informs. OTR to recheck at a later date. Dana Valera OTR/L
--- NOTE | 2019-07-23 15:31 | NUR ---
CEPACOL GIVEN FOR C/O SORE THROAT. WILL MONITOR.
[2019-07-23 16:00] VITALS: BP 160/68
--- NOTE | 2019-07-23 19:40 | NUR ---
Patient resting quietly with no c/o discomfort. Respirations easy and regular. Vital signs stable. No overt distress. DOMINIC HERR
[2019-07-23 20:00] VITALS: BP 148/59
--- NOTE | 2019-07-23 20:45 | NUR ---
DR. CRAWFORD ON FLOOR AND V.O. GIVEN FOR EGD W/DILATION ON TUE. SURGERY PACKET IN CHART.
[2019-07-24] VITALS: BP 160/78; BP 163/69
--- NOTE | 2019-07-24 02:01 | NUR ---
PT ALEJANDRO ASKING WHERE HIS BELONGINGS ARE THAT HIS FRIEND BROUGHT IN AND THAT HE NEEDS THEM
--- NOTE | 2019-07-24 02:30 | NUR ---
PT REQUESTING HIS BELONGINGS. PT TEACHING GIVEN ON [facility] POLICY. PT STATES HE IS GOING TO LEAVE AMA IN THE MORNING.
--- NOTE | 2019-07-24 02:37 | NUR ---
PT COMPLAINING OF KNEE PAIN 04/17 PRN ROBAXIN GIVEN
[2019-07-24 05:07] LABS: HEPATITIS B SURFACE AG Negative (Negative); HEPATITIS C VIRUS ANTIBODY <0.1 s/co (0.0-0.9)
--- NOTE | 2019-07-24 06:14 | NUR ---
PT REFUSING LABS AT THIS MOMENT, STATES HE HAS NO REASON WHY
--- NOTE | 2019-07-24 06:28 | NUR ---
PT BELONGINGS LOCKED IN ROOM 155
--- NOTE | 2019-07-24 07:45 | NUR ---
PATIENT REFUSING LAB WORK STILL.
--- NOTE | 2019-07-24 07:50 | NUR ---
STRAIGH PO ATIVAN GIVEN PER ORDER.
--- NOTE | 2019-07-24 08:00 | NUR ---
PATIENT IS UPSET WANTING BELONGINGS. EXPLAINED THE RULES AND PATIENT STATES HE IS LEAVING.
--- NOTE | 2019-07-24 08:23 | NUR ---
DR. BURGESS AND ACOUSTICS TEACHER AWARE.
--- NOTE | 2019-07-24 08:54 | NUR ---
SPEECH PATHOLOGY Patient was seen this am during breakfast meal. He was noted to be feeling better today, more alert and able to eat. Patient reported that the soreness in his throat had improved. He consumed cereal and milk while talking with clinician. He displayed no overt difficulty with this item and had no c/o globus. He drank hot tea and was noted display cough and throat clearing. Patient has been seen by Dr. Ward and was recommended to undergo esophageal dilation tomorrow. Due to s/s aspiration with thin liquid, he could also benefit from a MBS. Patient however, expressed that he plans to leave this facility today. His nurse confirmed this, stating he is leaving AMA. Results and francisco. for MBS was explained to the patient but he stated that he will be leaving. He expressed his reasons for leaving and clinician discussed these with his nurse who was aware. If patient decides to remain in this facility, a MBS is recommended. Refer to report in [facility] for further information. Thank you for this referral. TRINA SCOTT MSCCC-RIPSAW GRADER
--- NOTE | 2019-07-24 09:08 | NUR ---
DR. BURGESS IN ROOM EDUCATING PATIENT ON REASONS TO STAY.
--- NOTE | 2019-07-24 09:09 | NUR ---
PATIENT TOOK HEART MONITOR OFF SOON DOCTOR LEFT ROOM DESPITE EDUCATING THE NEED TO SEE DR. CRAWFORD AND TO HAVE HIS TEST DONE. PATIENT STATES I'LL HAVE IT DONE SOMWHERE ELSE AND I'VE HAD IT DONE AND THEY FOUND NO BLEEDING. PATIENT STATES HE HAS HIS OWN RULES AND WAS NOT AWARE OF OUR RULES. PATIENT STATES HE WAS PUT IN A DARK ROOM AND TOLD TO SIGN PAPERS.
--- NOTE | 2019-07-24 09:21 | NUR ---
LAB HERE TO DRAW BLOOD AND PATIENT REFUSED AGAIN.
--- NOTE | 2019-07-24 10:31 | NUR ---
PATIENT STILL IN ROOM WAITING FOR HIS RIDE.
--- NOTE | 2019-07-24 11:23 | NUR ---
PATIENT LEFT AMA. TESTER OPERATOR AWARE.
== END 2019-07-24 11:23 | disposition left against medical advice (07) | DRG 392 ==
LOC: ED 07:02 → EDHOLD 10:45 → 4E 10:45 → EDHOLD 10:57 → 4E 11:23
PROVIDERS: Emergency Medicine; ADMIT Internal Medicine
DX: R13.10 Dysphagia, unspecified (principal); I50.32 Chronic diastolic (congestive) heart failure; F10.239 Alcohol dependence with withdrawal, unspecified; J02.9 Acute pharyngitis, unspecified; F10.220 Alcohol dependence with intoxication, uncomplicated; R74.0 Nonspecific elevation of levels of transaminase and lactic acid dehydrogenase [LDH]; Z53.29 Procedure and treatment not carried out because of patient's decision for other reasons; D69.6 Thrombocytopenia, unspecified; D72.819 Decreased white blood cell count, unspecified; G89.29 Other chronic pain; M19.90 Unspecified osteoarthritis, unspecified site; K21.9 Gastro-esophageal reflux disease without esophagitis; M10.9 Gout, unspecified; E55.9 Vitamin D deficiency, unspecified; F41.9 Anxiety disorder, unspecified; I11.0 Hypertensive heart disease with heart failure; D64.9 Anemia, unspecified; Z88.5 Allergy status to narcotic agent; Z88.1 Allergy status to other antibiotic agents; Z88.8 Allergy status to other drugs, medicaments and biological substances; Z82.49 Family history of ischemic heart disease and other diseases of the circulatory system; Z82.5 Family history of asthma and other chronic lower respiratory diseases; Z86.711 Personal history of pulmonary embolism; Z79.899 Other long term (current) drug therapy

== ENCOUNTER 2019-08-01 09:53 | Emergency (ER) | payer MEDICARE ==
[~2019-08-01] VITALS: Ht 180.3 cm; Wt 79.4 kg
[~2019-08-01 09:53] MED LIST changes: +FLOMAX0.4 MG PO; +IMDUR SA30 MG PO; +LOPRESSOR25 MG PO; +REGLAN10 M1 PO
[2019-08-01] MEDS ORDERED: PROTONIX40 MG PO (11:21)
== END 2019-08-01 11:32 | disposition home or self-care (01) ==
LOC: ED 09:53
DX: R10.13 Epigastric pain (principal); G89.29 Other chronic pain; K21.9 Gastro-esophageal reflux disease without esophagitis; I11.0 Hypertensive heart disease with heart failure; I50.9 Heart failure, unspecified; Z88.5 Allergy status to narcotic agent; Z88.8 Allergy status to other drugs, medicaments and biological substances; Z88.1 Allergy status to other antibiotic agents; Z79.899 Other long term (current) drug therapy

== ENCOUNTER 2019-08-15 02:48 | Emergency (ER) | payer MEDICARE ==
[~2019-08-15] VITALS: Ht 180.3 cm; Wt 79.4 kg
[2019-08-15 03:44] LABS: BASO % 0.7 % (0.0-1.0); EOS # 0.1 10*3/uL (0.0-0.4); EOS % 1.6 % (1.0-4.0); LYMPH # 1.7 10*3/uL (1.3-4.4); MEAN CELL VOLUME 82.5 fl (80.0-94.0); MEAN CORPUSCULAR HGB 28.4 pg (27.0-31.0); MEAN CORPUSCULAR HGB CONC 34.4 g/dl (33.0-37.0); MEAN PLATELET VOLUME 8.1 fl (9.6-12.3); MONO # 0.4 10*3/uL (0.1-1.0); MONO % 8.3 % (3.0-9.0); NEUT # 2.3 10*3/uL (2.3-7.9); NEUT % 50.4 % (47.0-73.0); PLATELET COUNT AUTOMATED 115 10*3/uL (130-400); RED BLOOD COUNT 3.88 10*6/uL (4.50-5.90); RED CELL DISTRI WIDTH 14.6 % (0-14.5); WHITE BLOOD COUNT 4.5 10*3/uL (4.8-10.8)
[2019-08-15 04:01] LABS: ALBUMIN 3.9 gm/dl (3.1-4.5); CREATININE 1.57 mg/dL (0.70-1.30); POTASSIUM 3.4 mmol/L (3.5-5.1); TOTAL PROTEIN 7.2 gm/dL (6.4-8.2)
[2019-08-15 05:01] LABS: TROPONIN I < 0.015 ng/ml (<0.045)
== END 2019-08-15 05:14 | disposition left against medical advice (07) ==
LOC: ED 02:48
PROVIDERS: Emergency Medicine
DX: R00.2 Palpitations (principal); R60.0 Localized edema; I11.0 Hypertensive heart disease with heart failure; I50.9 Heart failure, unspecified; K21.9 Gastro-esophageal reflux disease without esophagitis; M10.9 Gout, unspecified; M19.90 Unspecified osteoarthritis, unspecified site; Z88.8 Allergy status to other drugs, medicaments and biological substances; Z79.899 Other long term (current) drug therapy

== ENCOUNTER 2019-09-02 04:58 | Emergency (ER) | payer MEDICARE ==
[~2019-09-02] VITALS: Ht 180.3 cm; Wt 79.4 kg
[2019-09-02 05:56] LABS: BASO % 0.4 % (0.0-1.0); EOS % 0.7 % (1.0-4.0); HEMATOCRIT 27.4 % (42.0-52.0); HEMOGLOBIN 9.1 g/dl (14.0-18.0); LYMPH # 0.7 10*3/uL (1.3-4.4); LYMPH % 25.3 % (27.0-41.0); MEAN CELL VOLUME 85.6 fl (80.0-94.0); MEAN CORPUSCULAR HGB 28.4 pg (27.0-31.0); MEAN CORPUSCULAR HGB CONC 33.2 g/dl (33.0-37.0); MEAN PLATELET VOLUME 9.2 fl (9.6-12.3); MONO # 0.2 10*3/uL (0.1-1.0); MONO % 8.4 % (3.0-9.0); NEUT # 1.9 10*3/uL (2.3-7.9); NEUT % 64.8 % (47.0-73.0); PLATELET COUNT AUTOMATED 50 10*3/uL (130-400); RED CELL DISTRI WIDTH 13.1 % (0-14.5); WHITE BLOOD COUNT 2.9 10*3/uL (4.8-10.8)
[2019-09-02 06:12] LABS: ALBUMIN 3.4 gm/dl (3.1-4.5); ALKALINE PHOSPHATASE 99 U/L (45-117); BUN 21 mg/dl (7-24); CHLORIDE 106 mmol/L (98-107); LIPASE 144 U/L (73-393); POTASSIUM 3.5 mmol/L (3.5-5.1); SODIUM 134 mmol/L (136-145); TOTAL PROTEIN 6.3 gm/dL (6.4-8.2)
[2019-09-02 06:24] LABS: SGOT/AST 9396 IU/L (3-35); SGPT/ALT 3414 U/L (12-78); TROPONIN I < 0.015 ng/ml (<0.045)
[2019-09-02 06:25] LABS: ACETAMINOPHEN (TYLENOL) < 5.0 ug/ml (10-30)
[2019-09-02 06:33] LABS: BILIRUBIN NEGATIVE (NEGATIVE); BLOOD 2+ (NEGATIVE); CLARITY SL CLOUDY (CLEAR); COLOR YELLOW (YELLOW); GLUCOSE NEGATIVE (NEGATIVE); KETONE NEGATIVE (NEGATIVE); SPECIFIC GRAVITY 1.015 (1.005-1.030); URINE AMPHETAMINES < 1000 (1000ng/ml); URINE BARBITURATES < 200 (200ng/ml); URINE BENZODIAZEPINES < 200 (200ng/ml); URINE CANNABINOIDS (THC) < 50 (50ng/ml); URINE COCAINE < 300 (300ng/ml); URINE METHADONE < 300 (300ng/ml); URINE OPIATES > 300 (300ng/ml)
[2019-09-02 06:34] LABS: BACTERIA 3+; LEUKO ESTERASE NEGATIVE (NEGATIVE); NITRITE NEGATIVE (NEGATIVE); UROBILINOGEN < 0.2 E.U./dl (0.2-1.0)
[2019-09-02 06:35] LABS: ACT PARTIAL THROMBO TIME 28.7 SECONDS (20.0-32.1); INTERNATIONAL NORM RATIO 1.6 (2.0-3.5)
[2019-09-02 06:37] LABS: URINE PHENCYCLIDINE < 25 (25ng/ml)
== END 2019-09-02 07:50 | disposition left against medical advice (07) ==
LOC: ED 04:58
PROVIDERS: Emergency Medicine Emergency Medical Services
DX: K72.90 Hepatic failure, unspecified without coma (principal); R12 Heartburn; M79.89 Other specified soft tissue disorders; R13.10 Dysphagia, unspecified; F41.9 Anxiety disorder, unspecified; I11.0 Hypertensive heart disease with heart failure; I50.9 Heart failure, unspecified; K21.9 Gastro-esophageal reflux disease without esophagitis; M10.9 Gout, unspecified; M81.0 Age-related osteoporosis without current pathological fracture; M19.90 Unspecified osteoarthritis, unspecified site; Z88.5 Allergy status to narcotic agent; Z79.899 Other long term (current) drug therapy; Z88.8 Allergy status to other drugs, medicaments and biological substances

== ENCOUNTER 2019-09-23 03:52 | Emergency (ER) | payer MEDICARE ==
[~2019-09-23] VITALS: Ht 180.3 cm; Wt 79.4 kg
[2019-09-23 04:36] LABS: BASO % 0.9 % (0.0-1.0); EOS # 0.1 10*3/uL (0.0-0.4); EOS % 1.4 % (1.0-4.0); HEMATOCRIT 31.4 % (42.0-52.0); HEMOGLOBIN 10.7 g/dl (14.0-18.0); LYMPH # 1.6 10*3/uL (1.3-4.4); LYMPH % 35.8 % (27.0-41.0); MEAN CELL VOLUME 83.7 fl (80.0-94.0); MEAN CORPUSCULAR HGB 28.5 pg (27.0-31.0); MEAN CORPUSCULAR HGB CONC 34.1 g/dl (33.0-37.0); MEAN PLATELET VOLUME 8.1 fl (9.6-12.3); MONO # 0.5 10*3/uL (0.1-1.0); MONO % 10.3 % (3.0-9.0); NEUT # 2.3 10*3/uL (2.3-7.9); NEUT % 51.4 % (47.0-73.0); PLATELET COUNT AUTOMATED 109 10*3/uL (130-400); RED BLOOD COUNT 3.75 10*6/uL (4.50-5.90); RED CELL DISTRI WIDTH 13.6 % (0-14.5); WHITE BLOOD COUNT 4.4 10*3/uL (4.8-10.8)
[2019-09-23 04:47] LABS: ACT PARTIAL THROMBO TIME 25.3 SECONDS (20.0-32.1); INTERNATIONAL NORM RATIO 1.2 (2.0-3.5)
[2019-09-23 04:52] LABS: ALBUMIN 3.7 gm/dl (3.1-4.5); ALKALINE PHOSPHATASE 112 U/L (45-117); BUN 18 mg/dl (7-24); CHLORIDE 102 mmol/L (98-107); CREATININE 1.41 mg/dL (0.70-1.30); LIPASE 215 U/L (73-393); POTASSIUM 3.2 mmol/L (3.5-5.1); SGOT/AST 39 IU/L (3-35); SGPT/ALT 53 U/L (12-78); SODIUM 136 mmol/L (136-145); TOTAL PROTEIN 7.2 gm/dL (6.4-8.2)
[2019-09-23 04:54] LABS: TROPONIN I < 0.015 ng/ml (<0.045)
[2019-09-23 05:33] LABS: URINE AMPHETAMINES < 1000 (1000ng/ml); URINE BARBITURATES < 200 (200ng/ml); URINE BENZODIAZEPINES < 200 (200ng/ml); URINE CANNABINOIDS (THC) < 50 (50ng/ml); URINE COCAINE < 300 (300ng/ml); URINE METHADONE < 300 (300ng/ml); URINE OPIATES > 300 (300ng/ml)
[2019-09-23 05:40] LABS: URINE PHENCYCLIDINE < 25 (25ng/ml)
== END 2019-09-23 09:52 | disposition left against medical advice (07) ==
LOC: ED 03:52
PROVIDERS: Emergency Medicine Emergency Medical Services
DX: F10.920 Alcohol use, unspecified with intoxication, uncomplicated (principal); M79.642 Pain in left hand; M79.89 Other specified soft tissue disorders; K21.9 Gastro-esophageal reflux disease without esophagitis; G89.29 Other chronic pain; I11.0 Hypertensive heart disease with heart failure; I50.9 Heart failure, unspecified; M17.0 Bilateral primary osteoarthritis of knee; Z88.5 Allergy status to narcotic agent; Z88.8 Allergy status to other drugs, medicaments and biological substances; Z88.1 Allergy status to other antibiotic agents; Z79.899 Other long term (current) drug therapy; Y90.5 Blood alcohol level of 100-119 mg/100 ml

== ENCOUNTER 2019-10-02 03:29 | Emergency (ER) | payer MEDICARE ==
[~2019-10-02] VITALS: Ht 180.3 cm; Wt 79.4 kg
== END 2019-10-02 05:02 | disposition home or self-care (01) ==
LOC: ED 03:29
DX: Z02.89 Encounter for other administrative examinations (principal); M79.89 Other specified soft tissue disorders; F41.9 Anxiety disorder, unspecified; K21.9 Gastro-esophageal reflux disease without esophagitis; M10.9 Gout, unspecified; I11.0 Hypertensive heart disease with heart failure; I50.9 Heart failure, unspecified; M19.90 Unspecified osteoarthritis, unspecified site; Z88.5 Allergy status to narcotic agent; Z88.8 Allergy status to other drugs, medicaments and biological substances; Z79.899 Other long term (current) drug therapy; Z79.2 Long term (current) use of antibiotics

== ENCOUNTER 2020-01-04 06:04 | Emergency (ER) | payer MEDICARE ==
[~2020-01-04] VITALS: Ht 180.3 cm; Wt 86.2 kg
[2020-01-04 06:50] LABS: BASO % 0.6 % (0.0-1.0); EOS # 0.2 10*3/uL (0.0-0.4); EOS % 2.8 % (1.0-4.0); HEMATOCRIT 31.4 % (42.0-52.0); LYMPH # 2.3 10*3/uL (1.3-4.4); LYMPH % 33.2 % (27.0-41.0); MEAN CELL VOLUME 82.6 fl (80.0-94.0); MEAN CORPUSCULAR HGB 27.9 pg (27.0-31.0); MEAN CORPUSCULAR HGB CONC 33.8 g/dl (33.0-37.0); MEAN PLATELET VOLUME 8.3 fl (9.6-12.3); MONO # 0.5 10*3/uL (0.1-1.0); MONO % 7.7 % (3.0-9.0); NEUT # 3.8 10*3/uL (2.3-7.9); NEUT % 55.3 % (47.0-73.0); PLATELET COUNT AUTOMATED 137 10*3/uL (130-400); RED CELL DISTRI WIDTH 13.5 % (0-14.5); WHITE BLOOD COUNT 6.8 10*3/uL (4.8-10.8)
[2020-01-04 07:03] LABS: ALBUMIN 3.6 gm/dl (3.1-4.5); ALKALINE PHOSPHATASE 85 U/L (45-117); BUN 28 mg/dl (7-24); CHLORIDE 103 mmol/L (98-107); CREATININE 2.09 mg/dL (0.70-1.30); LIPASE 239 U/L (73-393); POTASSIUM 4.5 mmol/L (3.5-5.1); SGOT/AST 19 IU/L (3-35); SGPT/ALT 23 U/L (12-78); SODIUM 133 mmol/L (136-145); TOTAL PROTEIN 7.3 gm/dL (6.4-8.2); TROPONIN I < 0.015 ng/ml (<0.045)
[2020-01-04] MEDS ORDERED: ATIVAN1 MG PO (09:08)
== END 2020-01-04 09:10 | disposition home or self-care (01) ==
LOC: ED 06:04
PROVIDERS: Emergency Medicine
DX: F10.129 Alcohol abuse with intoxication, unspecified (principal); K21.9 Gastro-esophageal reflux disease without esophagitis; I10 Essential (primary) hypertension; M19.90 Unspecified osteoarthritis, unspecified site; F17.200 Nicotine dependence, unspecified, uncomplicated; Z88.5 Allergy status to narcotic agent; Z88.8 Allergy status to other drugs, medicaments and biological substances; Z79.899 Other long term (current) drug therapy; Z79.2 Long term (current) use of antibiotics; Y90.6 Blood alcohol level of 120-199 mg/100 ml

== ENCOUNTER 2020-01-17 04:52 | Emergency (ER) | payer MEDICARE ==
[~2020-01-17] VITALS: Ht 180.3 cm; Wt 89.8 kg
[2020-01-17 05:58] LABS: BASO % 0.6 % (0.0-1.0); EOS # 0.1 10*3/uL (0.0-0.4); EOS % 3.4 % (1.0-4.0); HEMATOCRIT 29.8 % (42.0-52.0); LYMPH # 1.3 10*3/uL (1.3-4.4); LYMPH % 35.9 % (27.0-41.0); MEAN CELL VOLUME 82.5 fl (80.0-94.0); MEAN CORPUSCULAR HGB 26.3 pg (27.0-31.0); MEAN CORPUSCULAR HGB CONC 31.9 g/dl (33.0-37.0); MEAN PLATELET VOLUME 8.6 fl (9.6-12.3); MONO # 0.3 10*3/uL (0.1-1.0); MONO % 9.3 % (3.0-9.0); NEUT # 1.8 10*3/uL (2.3-7.9); NEUT % 50.5 % (47.0-73.0); PLATELET COUNT AUTOMATED 96 10*3/uL (130-400); RED BLOOD COUNT 3.61 10*6/uL (4.50-5.90); RED CELL DISTRI WIDTH 13.8 % (0-14.5); WHITE BLOOD COUNT 3.5 10*3/uL (4.8-10.8)
[2020-01-17 06:24] LABS: ALBUMIN 3.4 gm/dl (3.1-4.5); ALKALINE PHOSPHATASE 89 U/L (45-117); BUN 27 mg/dl (7-24); CHLORIDE 101 mmol/L (98-107); CREATININE 1.54 mg/dL (0.70-1.30); LIPASE 183 U/L (73-393); SGOT/AST 47 IU/L (3-35); SGPT/ALT 43 U/L (12-78); SODIUM 132 mmol/L (136-145); TOTAL PROTEIN 7.2 gm/dL (6.4-8.2)
[2020-01-17 06:25] LABS: TROPONIN I < 0.015 ng/ml (<0.045)
== END 2020-01-17 07:00 | disposition home or self-care (01) ==
LOC: ED 04:52
PROVIDERS: Emergency Medicine
DX: K21.9 Gastro-esophageal reflux disease without esophagitis (principal); M10.9 Gout, unspecified; M19.90 Unspecified osteoarthritis, unspecified site; I50.9 Heart failure, unspecified; I11.0 Hypertensive heart disease with heart failure; Z88.6 Allergy status to analgesic agent; Z88.1 Allergy status to other antibiotic agents; Z88.8 Allergy status to other drugs, medicaments and biological substances; Z79.899 Other long term (current) drug therapy

== ENCOUNTER 2020-02-06 03:11 | Emergency (ER) | payer MEDICARE ==
[~2020-02-06] VITALS: Ht 180.3 cm; Wt 86.2 kg
[2020-02-06 04:04] LABS: BASO % 0.4 % (0.0-1.0); EOS # 0.1 10*3/uL (0.0-0.4); EOS % 3.5 % (1.0-4.0); HEMATOCRIT 26.7 % (42.0-52.0); LYMPH # 0.9 10*3/uL (1.3-4.4); LYMPH % 36.8 % (27.0-41.0); MEAN CELL VOLUME 80.4 fl (80.0-94.0); MEAN CORPUSCULAR HGB 25.9 pg (27.0-31.0); MEAN CORPUSCULAR HGB CONC 32.2 g/dl (33.0-37.0); MEAN PLATELET VOLUME 8.2 fl (9.6-12.3); MONO # 0.3 10*3/uL (0.1-1.0); MONO % 11.3 % (3.0-9.0); NEUT # 1.1 10*3/uL (2.3-7.9); PLATELET COUNT AUTOMATED 105 10*3/uL (130-400); RED BLOOD COUNT 3.32 10*6/uL (4.50-5.90); RED CELL DISTRI WIDTH 14.7 % (0-14.5); WHITE BLOOD COUNT 2.3 10*3/uL (4.8-10.8)
[2020-02-06 04:24] LABS: ALBUMIN 3.5 gm/dl (3.1-4.5); CREATININE 1.54 mg/dL (0.70-1.30); POTASSIUM 3.7 mmol/L (3.5-5.1); TOTAL PROTEIN 7.1 gm/dL (6.4-8.2)
== END 2020-02-06 04:56 | disposition left against medical advice (07) ==
LOC: ED 03:11
PROVIDERS: Emergency Medicine
DX: A41.9 Sepsis, unspecified organism (principal); K21.9 Gastro-esophageal reflux disease without esophagitis; I11.0 Hypertensive heart disease with heart failure; I50.9 Heart failure, unspecified; M10.9 Gout, unspecified; M19.90 Unspecified osteoarthritis, unspecified site; Z88.6 Allergy status to analgesic agent; Z88.1 Allergy status to other antibiotic agents; Z88.8 Allergy status to other drugs, medicaments and biological substances; Z79.899 Other long term (current) drug therapy

== ENCOUNTER 2020-05-30 11:59 | Emergency (ER) | payer MEDICARE ==
[~2020-05-30] VITALS: Ht 180.3 cm; Wt 86.2 kg
[2020-05-30 12:43] LABS: BASO % 0.8 % (0.0-1.0); EOS # 0.2 10*3/uL (0.0-0.4); EOS % 5.8 % (1.0-4.0); HEMATOCRIT 32.4 % (42.0-52.0); LYMPH # 1.4 10*3/uL (1.3-4.4); LYMPH % 35.5 % (27.0-41.0); MEAN CELL VOLUME 76.8 fl (80.0-94.0); MEAN CORPUSCULAR HGB 24.9 pg (27.0-31.0); MEAN CORPUSCULAR HGB CONC 32.4 g/dl (33.0-37.0); MEAN PLATELET VOLUME 7.9 fl (9.6-12.3); MONO # 0.5 10*3/uL (0.1-1.0); MONO % 12.1 % (3.0-9.0); NEUT # 1.8 10*3/uL (2.3-7.9); NEUT % 45.5 % (47.0-73.0); PLATELET COUNT AUTOMATED 93 10*3/uL (130-400); RED BLOOD COUNT 4.22 10*6/uL (4.50-5.90)
[2020-05-30 13:00] LABS: ALBUMIN 3.6 gm/dl (3.1-4.5); ALKALINE PHOSPHATASE 113 U/L (45-117); BUN 23 mg/dl (7-24); CHLORIDE 100 mmol/L (98-107); CREATININE 1.61 mg/dL (0.70-1.30); POTASSIUM 3.5 mmol/L (3.5-5.1); SGOT/AST 314 IU/L (3-35); SGPT/ALT 293 U/L (12-78); SODIUM 135 mmol/L (136-145); TOTAL PROTEIN 7.1 gm/dL (6.4-8.2)
[2020-05-30 13:02] LABS: TROPONIN I < 0.015 ng/ml (<0.045)
== END 2020-05-30 20:33 | disposition home or self-care (01) ==
LOC: ED 11:59
PROVIDERS: Emergency Medicine
DX: R10.13 Epigastric pain (principal); I10 Essential (primary) hypertension; K21.9 Gastro-esophageal reflux disease without esophagitis; Z79.899 Other long term (current) drug therapy

== ENCOUNTER 2020-06-20 20:40 | Emergency (ER) | payer MEDICARE ==
[2020-06-20 21:47] LABS: BASO % 0.5 % (0.0-1.0); EOS # 0.1 10*3/uL (0.0-0.4); EOS % 1.3 % (1.0-4.0); HEMATOCRIT 29.2 % (42.0-52.0); LYMPH % 25.4 % (27.0-41.0); MEAN CELL VOLUME 81.3 fl (80.0-94.0); MEAN CORPUSCULAR HGB 25.3 pg (27.0-31.0); MEAN CORPUSCULAR HGB CONC 31.2 g/dl (33.0-37.0); MEAN PLATELET VOLUME 9.2 fl (9.6-12.3); MONO # 0.3 10*3/uL (0.1-1.0); MONO % 6.3 % (3.0-9.0); NEUT # 2.6 10*3/uL (2.3-7.9); NEUT % 66.5 % (47.0-73.0); PLATELET COUNT AUTOMATED 117 10*3/uL (130-400); RED BLOOD COUNT 3.59 10*6/uL (4.50-5.90); RED CELL DISTRI WIDTH 16.1 % (0-14.5)
[2020-06-20 22:04] LABS: ALBUMIN 3.4 gm/dl (3.1-4.5); ALKALINE PHOSPHATASE 81 U/L (45-117); BUN 12 mg/dl (7-24); CHLORIDE 110 mmol/L (98-107); CREATININE 1.06 mg/dL (0.70-1.30); POTASSIUM 3.4 mmol/L (3.5-5.1); SGOT/AST 26 IU/L (3-35); SGPT/ALT 24 U/L (12-78); SODIUM 140 mmol/L (136-145); TOTAL PROTEIN 6.9 gm/dL (6.4-8.2)
== END 2020-06-21 00:46 | disposition home or self-care (01) ==
LOC: ED 20:40
PROVIDERS: Internal Medicine
DX: F10.10 Alcohol abuse, uncomplicated (principal); R60.9 Edema, unspecified; E87.6 Hypokalemia; D64.9 Anemia, unspecified; Z88.5 Allergy status to narcotic agent; Z88.8 Allergy status to other drugs, medicaments and biological substances; Z79.899 Other long term (current) drug therapy; Z79.2 Long term (current) use of antibiotics; Y90.9 Presence of alcohol in blood, level not specified

== ENCOUNTER 2020-06-25 00:10 | Emergency (ER) | payer MEDICARE ==
[~2020-06-25] VITALS: Ht 180.3 cm; Wt 86.2 kg
[2020-06-25 01:15] LABS: BASO % 0.5 % (0.0-1.0); EOS # 0.1 10*3/uL (0.0-0.4); HEMATOCRIT 30.2 % (42.0-52.0); LYMPH % 26.2 % (27.0-41.0); MEAN CELL VOLUME 77.8 fl (80.0-94.0); MEAN CORPUSCULAR HGB 25.5 pg (27.0-31.0); MEAN CORPUSCULAR HGB CONC 32.8 g/dl (33.0-37.0); MEAN PLATELET VOLUME 8.8 fl (9.6-12.3); MONO # 0.3 10*3/uL (0.1-1.0); MONO % 7.9 % (3.0-9.0); NEUT # 2.5 10*3/uL (2.3-7.9); NEUT % 63.1 % (47.0-73.0); PLATELET COUNT AUTOMATED 117 10*3/uL (130-400); RED BLOOD COUNT 3.88 10*6/uL (4.50-5.90); RED CELL DISTRI WIDTH 15.2 % (0-14.5); WHITE BLOOD COUNT 3.9 10*3/uL (4.8-10.8)
[2020-06-25 01:31] LABS: ALBUMIN 3.6 gm/dl (3.1-4.5); CREATININE 1.59 mg/dL (0.70-1.30); TOTAL PROTEIN 7.1 gm/dL (6.4-8.2)
== END 2020-06-25 13:42 | disposition home or self-care (01) ==
LOC: ED 00:10
PROVIDERS: Emergency Medicine
DX: M79.606 Pain in leg, unspecified (principal); G89.29 Other chronic pain; I11.0 Hypertensive heart disease with heart failure; I50.9 Heart failure, unspecified; K21.9 Gastro-esophageal reflux disease without esophagitis; M10.9 Gout, unspecified; Z88.5 Allergy status to narcotic agent; Z88.8 Allergy status to other drugs, medicaments and biological substances; Z79.899 Other long term (current) drug therapy; Z79.2 Long term (current) use of antibiotics

== ENCOUNTER 2020-08-25 00:59 | Emergency (ER) | payer MEDICARE ==
[~2020-08-25] VITALS: Ht 180.3 cm; Wt 83.9 kg
[2020-08-25 01:49] LABS: BASO % 0.6 % (0.0-1.0); EOS # 0.1 10*3/uL (0.0-0.4); EOS % 1.4 % (1.0-4.0); HEMATOCRIT 28.2 % (42.0-52.0); LYMPH # 1.3 10*3/uL (1.3-4.4); LYMPH % 24.8 % (27.0-41.0); MEAN CELL VOLUME 74.4 fl (80.0-94.0); MEAN CORPUSCULAR HGB 22.4 pg (27.0-31.0); MEAN CORPUSCULAR HGB CONC 30.1 g/dl (33.0-37.0); MEAN PLATELET VOLUME 7.8 fl (9.6-12.3); MONO # 0.5 10*3/uL (0.1-1.0); NEUT # 3.3 10*3/uL (2.3-7.9); PLATELET COUNT AUTOMATED 150 10*3/uL (130-400); RED BLOOD COUNT 3.79 10*6/uL (4.50-5.90); RED CELL DISTRI WIDTH 16.6 % (0-14.5); WHITE BLOOD COUNT 5.1 10*3/uL (4.8-10.8)
[2020-08-25 01:57] LABS: INTERNATIONAL NORM RATIO 1.1 (2.0-3.5)
[2020-08-25 02:05] LABS: ALBUMIN 3.5 gm/dl (3.1-4.5); ALKALINE PHOSPHATASE 93 U/L (45-117); BUN 25 mg/dl (7-24); CHLORIDE 102 mmol/L (98-107); CREATININE 1.85 mg/dL (0.70-1.30); POTASSIUM 3.8 mmol/L (3.5-5.1); SGOT/AST 20 IU/L (3-35); SGPT/ALT 22 U/L (12-78); SODIUM 134 mmol/L (136-145); TOTAL PROTEIN 7.4 gm/dL (6.4-8.2); TROPONIN I < 0.015 ng/ml (<0.045)
== END 2020-08-25 05:30 | disposition home or self-care (01) ==
LOC: ED 00:59
PROVIDERS: Emergency Medicine
DX: R60.0 Localized edema (principal); K21.9 Gastro-esophageal reflux disease without esophagitis; I11.0 Hypertensive heart disease with heart failure; I50.9 Heart failure, unspecified; M79.604 Pain in right leg; M79.605 Pain in left leg; M19.90 Unspecified osteoarthritis, unspecified site; Z88.5 Allergy status to narcotic agent; Z88.8 Allergy status to other drugs, medicaments and biological substances; Z79.899 Other long term (current) drug therapy; Z86.718 Personal history of other venous thrombosis and embolism; Z90.89 Acquired absence of other organs

== ENCOUNTER 2020-09-15 15:45 | Inpatient (IN) | payer MEDICARE ==
[~2020-09-15] VITALS: Ht 180.3 cm; Wt 83.9 kg
[2020-09-15 16:00] VITALS: BP 156/87
[2020-09-15 16:32] LABS: BASO # 0.1 10*3/uL (0.0-0.1); BASO % 0.8 % (0.0-1.0); EOS % 0.5 % (1.0-4.0); HEMATOCRIT 33.8 % (42.0-52.0); LYMPH # 1.5 10*3/uL (1.3-4.4); LYMPH % 22.6 % (27.0-41.0); MEAN CELL VOLUME 74.1 fl (80.0-94.0); MEAN CORPUSCULAR HGB 22.8 pg (27.0-31.0); MEAN CORPUSCULAR HGB CONC 30.8 g/dl (33.0-37.0); MEAN PLATELET VOLUME 8.3 fl (9.6-12.3); MONO # 0.7 10*3/uL (0.1-1.0); MONO % 10.7 % (3.0-9.0); NEUT # 4.2 10*3/uL (2.3-7.9); NEUT % 65.2 % (47.0-73.0); PLATELET COUNT AUTOMATED 115 10*3/uL (130-400); RED BLOOD COUNT 4.56 10*6/uL (4.50-5.90); RED CELL DISTRI WIDTH 18.8 % (0-14.5); WHITE BLOOD COUNT 6.4 10*3/uL (4.8-10.8)
[2020-09-15 16:45] LABS: ACT PARTIAL THROMBO TIME 24.2 SECONDS (20.0-32.1); INTERNATIONAL NORM RATIO 1.1 (2.0-3.5)
[2020-09-15 16:46] LABS: URINE AMPHETAMINES < 1000 (1000ng/ml); URINE BARBITURATES < 200 (200ng/ml); URINE BENZODIAZEPINES < 200 (200ng/ml); URINE CANNABINOIDS (THC) < 50 (50ng/ml); URINE COCAINE < 300 (300ng/ml); URINE METHADONE < 300 (300ng/ml); URINE OPIATES > 300 (300ng/ml)
[2020-09-15 16:51] LABS: URINE PHENCYCLIDINE < 25 (25ng/ml)
[2020-09-15 16:54] LABS: ALBUMIN 4.3 gm/dl (3.1-4.5); CREATININE 2.18 mg/dL (0.70-1.30); POTASSIUM 3.1 mmol/L (3.5-5.1); TOTAL PROTEIN 8.5 gm/dL (6.4-8.2)
[2020-09-16] VITALS (7 sets, daily range): BP systolic 129–179; BP diastolic 63–86
[2020-09-16 08:16] LABS: ALBUMIN 3.9 gm/dl (3.1-4.5); CREATININE 1.64 mg/dL (0.70-1.30); POTASSIUM 3.7 mmol/L (3.5-5.1); TOTAL PROTEIN 7.7 gm/dL (6.4-8.2)
[2020-09-16 09:07] LABS: HEMATOCRIT 31.8 % (42.0-52.0); MEAN CELL VOLUME 74.3 fl (80.0-94.0); MEAN CORPUSCULAR HGB 22.7 pg (27.0-31.0); MEAN CORPUSCULAR HGB CONC 30.5 g/dl (33.0-37.0); MEAN PLATELET VOLUME 9.3 fl (9.6-12.3); RED BLOOD COUNT 4.28 10*6/uL (4.50-5.90); RED CELL DISTRI WIDTH 18.4 % (0-14.5); WHITE BLOOD COUNT 2.3 10*3/uL (4.8-10.8)
[2020-09-16 09:09] LABS: PLATELET COUNT AUTOMATED 74 10*3/uL (130-400)
[2020-09-16 09:39] LABS: TOTAL CELLS COUNTED 100 #CELLS
[2020-09-16 09:40] LABS: MICROCYTOSIS SLIGHT; PLATELET SUFFICIENCY LOW (NORMAL); POLYCHROMASIA SLIGHT; STOMATOCYTE FEW
[2020-09-17] VITALS (9 sets, daily range): BP systolic 107–155; BP diastolic 50–80
[2020-09-17 06:39] LABS: BILIRUBIN Negative (Negative); BLOOD Negative (Negative); CLARITY Clear (Clear); COLOR Yellow (Yellow); GLUCOSE Negative (Negative); KETONE Negative (Negative); LEUKO ESTERASE Negative (Negative); NITRITE Negative (Negative); SPECIFIC GRAVITY <= 1.005 (1.001-1.030); UROBILINOGEN 0.2 E.U./dl (0.0-1.0)
[2020-09-17 06:41] LABS: BASO % 0.8 % (0.0-1.0); EOS # 0.1 10*3/uL (0.0-0.4); LYMPH # 0.9 10*3/uL (1.3-4.4); LYMPH % 34.7 % (27.0-41.0); MEAN CORPUSCULAR HGB 22.6 pg (27.0-31.0); MEAN CORPUSCULAR HGB CONC 29.7 g/dl (33.0-37.0); MEAN PLATELET VOLUME 8.1 fl (9.6-12.3); MONO # 0.3 10*3/uL (0.1-1.0); MONO % 11.1 % (3.0-9.0); NEUT # 1.3 10*3/uL (2.3-7.9); NEUT % 48.4 % (47.0-73.0); PLATELET COUNT AUTOMATED 60 10*3/uL (130-400); RED BLOOD COUNT 4.21 10*6/uL (4.50-5.90); RED CELL DISTRI WIDTH 18.8 % (0-14.5); WHITE BLOOD COUNT 2.6 10*3/uL (4.8-10.8)
[2020-09-17 07:01] LABS: RBC 0-2 rbc/hpf (0-2); WBC 0-2 wbc/hpf (0-5)
[2020-09-17 07:15] LABS: ALBUMIN 3.9 gm/dl (3.1-4.5); CREATININE 1.62 mg/dL (0.70-1.30); POTASSIUM 3.2 mmol/L (3.5-5.1); TOTAL PROTEIN 7.9 gm/dL (6.4-8.2)
[2020-09-18 06:43] LABS: BASO % 0.6 % (0.0-1.0); EOS # 0.1 10*3/uL (0.0-0.4); EOS % 2.9 % (1.0-4.0); HEMATOCRIT 32.5 % (42.0-52.0); LYMPH # 1.1 10*3/uL (1.3-4.4); LYMPH % 33.2 % (27.0-41.0); MEAN CELL VOLUME 76.1 fl (80.0-94.0); MEAN CORPUSCULAR HGB CONC 30.2 g/dl (33.0-37.0); MEAN PLATELET VOLUME 8.3 fl (9.6-12.3); MONO # 0.3 10*3/uL (0.1-1.0); NEUT # 1.9 10*3/uL (2.3-7.9); PLATELET COUNT AUTOMATED 72 10*3/uL (130-400); RED BLOOD COUNT 4.27 10*6/uL (4.50-5.90); RED CELL DISTRI WIDTH 19.2 % (0-14.5); WHITE BLOOD COUNT 3.4 10*3/uL (4.8-10.8)
[2020-09-18 07:05] LABS: ALBUMIN 3.7 gm/dl (3.1-4.5); ALKALINE PHOSPHATASE 101 U/L (45-117); BUN 12 mg/dl (7-24); CHLORIDE 104 mmol/L (98-107); CREATININE 1.41 mg/dL (0.70-1.30); POTASSIUM 3.5 mmol/L (3.5-5.1); SGOT/AST 19 IU/L (3-35); SGPT/ALT 26 U/L (12-78); SODIUM 139 mmol/L (136-145); TOTAL PROTEIN 7.3 gm/dL (6.4-8.2)
[2020-09-18 08:00] VITALS: BP 146/74
[2020-09-18] MEDS ORDERED: NATURE'S BLEND F1 MG PO (10:50)
[2020-09-18] MEDS ORDERED: VITAMIN B-1100 M1 PO (10:50)
[2020-09-18 12:00] VITALS: BP 122/67
== END 2020-09-18 14:00 | disposition home or self-care (01) | DRG 391 ==
LOC: ED 15:45 → EDHOLD 16:14 → 5E 16:14
PROVIDERS: Family Medicine; Internal Medicine; ADMIT Internal Medicine; ATTEND Internal Medicine
PROC: 0DB68ZX Excision of Stomach, Via Natural or Artificial Opening Endoscopic, Diagnostic (ICD-10-PCS; principal; 2020-09-15)
DX: K29.70 Gastritis, unspecified, without bleeding (principal); N17.0 Acute kidney failure with tubular necrosis; F10.239 Alcohol dependence with withdrawal, unspecified; I50.32 Chronic diastolic (congestive) heart failure; E87.1 Hypo-osmolality and hyponatremia; K70.9 Alcoholic liver disease, unspecified; K21.9 Gastro-esophageal reflux disease without esophagitis; E87.6 Hypokalemia; K44.9 Diaphragmatic hernia without obstruction or gangrene; G89.29 Other chronic pain; M79.606 Pain in leg, unspecified; M10.9 Gout, unspecified; M17.0 Bilateral primary osteoarthritis of knee; F41.9 Anxiety disorder, unspecified; D69.6 Thrombocytopenia, unspecified; R74.01 Elevation of levels of liver transaminase levels; D50.9 Iron deficiency anemia, unspecified; E87.8 Other disorders of electrolyte and fluid balance, not elsewhere classified; R73.9 Hyperglycemia, unspecified; I11.0 Hypertensive heart disease with heart failure; E55.9 Vitamin D deficiency, unspecified; Z87.81 Personal history of (healed) traumatic fracture; Z88.6 Allergy status to analgesic agent; Z88.1 Allergy status to other antibiotic agents; Z88.8 Allergy status to other drugs, medicaments and biological substances; Z82.49 Family history of ischemic heart disease and other diseases of the circulatory system; Z83.6 Family history of other diseases of the respiratory system; Z86.711 Personal history of pulmonary embolism

== ENCOUNTER 2020-11-01 03:05 | Emergency (ER) | payer MEDICARE ==
[~2020-11-01] VITALS: Wt 81.6 kg
[2020-11-01 03:55] LABS: BASO % 0.7 % (0.0-1.0); EOS # 0.1 10*3/uL (0.0-0.4); HEMATOCRIT 28.3 % (42.0-52.0); LYMPH # 1.2 10*3/uL (1.3-4.4); LYMPH % 27.4 % (27.0-41.0); MEAN CELL VOLUME 75.5 fl (80.0-94.0); MEAN CORPUSCULAR HGB 23.5 pg (27.0-31.0); MEAN CORPUSCULAR HGB CONC 31.1 g/dl (33.0-37.0); MONO # 0.5 10*3/uL (0.1-1.0); MONO % 11.4 % (3.0-9.0); NEUT # 2.5 10*3/uL (2.3-7.9); NEUT % 57.3 % (47.0-73.0); PLATELET COUNT AUTOMATED 109 10*3/uL (130-400); RED BLOOD COUNT 3.75 10*6/uL (4.50-5.90); RED CELL DISTRI WIDTH 19.9 % (0-14.5); WHITE BLOOD COUNT 4.4 10*3/uL (4.8-10.8)
[2020-11-01 04:08] LABS: URINE AMPHETAMINES < 1000 (1000ng/ml); URINE BARBITURATES < 200 (200ng/ml); URINE BENZODIAZEPINES > 200 (200ng/ml); URINE COCAINE < 300 (300ng/ml); URINE METHADONE < 300 (300ng/ml); URINE OPIATES > 300 (300ng/ml)
[2020-11-01 04:12] LABS: ALBUMIN 3.4 gm/dl (3.1-4.5); CREATININE 1.66 mg/dL (0.70-1.30); POTASSIUM 3.6 mmol/L (3.5-5.1); TOTAL PROTEIN 7.3 gm/dL (6.4-8.2)
[2020-11-01 04:12] LABS: URINE CANNABINOIDS (THC) < 50 (50ng/ml)
[2020-11-01 04:14] LABS: URINE PHENCYCLIDINE < 25 (25ng/ml)
== END 2020-11-01 05:08 | disposition home or self-care (01) ==
LOC: ED 03:05
PROVIDERS: Internal Medicine
DX: D61.818 Other pancytopenia (principal); E87.8 Other disorders of electrolyte and fluid balance, not elsewhere classified; F10.10 Alcohol abuse, uncomplicated; I12.9 Hypertensive chronic kidney disease with stage 1 through stage 4 chronic kidney disease, or unspecified chronic kidney disease; N18.32 Chronic kidney disease, stage 3b; K21.9 Gastro-esophageal reflux disease without esophagitis; M19.90 Unspecified osteoarthritis, unspecified site; Z88.8 Allergy status to other drugs, medicaments and biological substances; Z88.5 Allergy status to narcotic agent; Z79.899 Other long term (current) drug therapy; Y90.4 Blood alcohol level of 80-99 mg/100 ml

== ENCOUNTER 2020-12-11 22:54 | Emergency (ER) | payer MEDICARE ==
[~2020-12-11] VITALS: Wt 81.6 kg
[2020-12-12 00:46] LABS: BASO % 0.7 % (0.0-1.0); EOS # 0.2 10*3/uL (0.0-0.4); EOS % 4.3 % (1.0-4.0); HEMATOCRIT 32.8 % (42.0-52.0); LYMPH # 1.3 10*3/uL (1.3-4.4); LYMPH % 29.8 % (27.0-41.0); MEAN CELL VOLUME 79.4 fl (80.0-94.0); MEAN CORPUSCULAR HGB 26.2 pg (27.0-31.0); MEAN CORPUSCULAR HGB CONC 32.9 g/dl (33.0-37.0); MEAN PLATELET VOLUME 7.7 fl (9.6-12.3); MONO # 0.3 10*3/uL (0.1-1.0); NEUT # 2.6 10*3/uL (2.3-7.9); PLATELET COUNT AUTOMATED 114 10*3/uL (130-400); RED BLOOD COUNT 4.13 10*6/uL (4.50-5.90); WHITE BLOOD COUNT 4.4 10*3/uL (4.8-10.8)
[2020-12-12 01:01] LABS: CREATININE 1.64 mg/dL (0.70-1.30); POTASSIUM 3.8 mmol/L (3.5-5.1); TOTAL PROTEIN 7.9 gm/dL (6.4-8.2)
[2020-12-12 02:13] LABS: BILIRUBIN Negative (Negative); BLOOD Negative (Negative); CLARITY Clear (Clear); COLOR Yellow (Yellow); GLUCOSE Negative (Negative); KETONE Trace (Negative); LEUKO ESTERASE Negative (Negative); NITRITE Negative (Negative); SPECIFIC GRAVITY 1.015 (1.001-1.030); UROBILINOGEN 0.2 E.U./dl (0.0-1.0)
[2020-12-12 02:24] LABS: HYALINE CAST 16-20
[2020-12-12 02:25] LABS: RBC 0-2 rbc/hpf (0-2); WBC 0-2 wbc/hpf (0-5)
== END 2020-12-12 06:16 | disposition home or self-care (01) ==
LOC: ED 22:54
PROVIDERS: Emergency Medicine
DX: I88.0 Nonspecific mesenteric lymphadenitis (principal); I13.0 Hypertensive heart and chronic kidney disease with heart failure and stage 1 through stage 4 chronic kidney disease, or unspecified chronic kidney disease; N18.32 Chronic kidney disease, stage 3b; I50.9 Heart failure, unspecified; K21.9 Gastro-esophageal reflux disease without esophagitis; M10.9 Gout, unspecified; Z88.5 Allergy status to narcotic agent; Z88.8 Allergy status to other drugs, medicaments and biological substances; Z79.899 Other long term (current) drug therapy; Z98.890 Other specified postprocedural states

== ENCOUNTER 2020-12-18 15:23 | Inpatient (IN) | payer MEDICARE ==
[~2020-12-18] VITALS: Ht 180.3 cm; Wt 81.3 kg
[2020-12-18 15:30] VITALS: BP 139/80
[2020-12-18 15:50] LABS: BASO % 0.7 % (0.0-1.0); EOS # 0.2 10*3/uL (0.0-0.4); EOS % 3.9 % (1.0-4.0); LYMPH # 1.2 10*3/uL (1.3-4.4); MEAN CELL VOLUME 80.4 fl (80.0-94.0); MEAN CORPUSCULAR HGB 26.3 pg (27.0-31.0); MEAN CORPUSCULAR HGB CONC 32.8 g/dl (33.0-37.0); MEAN PLATELET VOLUME 7.8 fl (9.6-12.3); MONO # 0.4 10*3/uL (0.1-1.0); MONO % 9.8 % (3.0-9.0); NEUT # 2.3 10*3/uL (2.3-7.9); NEUT % 56.4 % (47.0-73.0); PLATELET COUNT AUTOMATED 146 10*3/uL (130-400); RED BLOOD COUNT 4.48 10*6/uL (4.50-5.90); RED CELL DISTRI WIDTH 17.7 % (0-14.5); WHITE BLOOD COUNT 4.1 10*3/uL (4.8-10.8)
[2020-12-18 16:02] LABS: ACT PARTIAL THROMBO TIME 24.3 SECONDS (20.0-32.1); INTERNATIONAL NORM RATIO 1.1 (2.0-3.5)
[2020-12-18 16:08] LABS: ALBUMIN 4.2 gm/dl (3.1-4.5); CREATININE 1.66 mg/dL (0.70-1.30); POTASSIUM 3.5 mmol/L (3.5-5.1); TOTAL PROTEIN 8.4 gm/dL (6.4-8.2)
[2020-12-18 20:12] VITALS: BP 169/69
[2020-12-18] MEDS ORDERED: OXYCODONE HYDRO30 MG PO (20:32)
[2020-12-19] VITALS: BP 166/67
[2020-12-19 07:03] LABS: ACT PARTIAL THROMBO TIME 25.4 SECONDS (20.0-32.1); INTERNATIONAL NORM RATIO 1.2 (2.0-3.5)
[2020-12-19 07:08] LABS: ALBUMIN 3.3 gm/dl (3.1-4.5); ALKALINE PHOSPHATASE 95 U/L (45-117); BUN 14 mg/dl (7-24); CHLORIDE 108 mmol/L (98-107); CHOLESTEROL 114 mg/dL (<200); CREATININE 1.27 mg/dL (0.70-1.30); LDL CHOLESTEROL 16 mg/dL (9-159); POTASSIUM 3.5 mmol/L (3.5-5.1); SGOT/AST 34 IU/L (3-35); SGPT/ALT 25 U/L (12-78); SODIUM 141 mmol/L (136-145); TRIGLYCERIDES 224 mg/dl (<150)
[2020-12-19 07:09] LABS: FREE T4 1.08 ng/dl (0.76-1.46)
[2020-12-19 07:12] LABS: VITAMIN D, 25-HYDROXY 11.7 ng/mL (30-100)
[2020-12-19 07:14] LABS: BASO % 1.1 % (0.0-1.0); EOS # 0.2 10*3/uL (0.0-0.4); EOS % 5.7 % (1.0-4.0); LYMPH % 38.7 % (27.0-41.0); MEAN CELL VOLUME 81.7 fl (80.0-94.0); MEAN CORPUSCULAR HGB CONC 31.8 g/dl (33.0-37.0); MEAN PLATELET VOLUME 8.6 fl (9.6-12.3); MONO # 0.3 10*3/uL (0.1-1.0); MONO % 10.3 % (3.0-9.0); NEUT # 1.1 10*3/uL (2.3-7.9); NEUT % 43.8 % (47.0-73.0); RED BLOOD COUNT 4.16 10*6/uL (4.50-5.90); WHITE BLOOD COUNT 2.6 10*3/uL (4.8-10.8)
[2020-12-19 07:27] LABS: PLATELET COUNT AUTOMATED 101 10*3/uL (130-400)
[2020-12-19 08:00] VITALS: BP 169/67
[2020-12-19 12:00] VITALS: BP 162/58
[2020-12-19 16:00] VITALS: BP 158/62
[2020-12-19 21:16] VITALS: BP 150/81
[2020-12-20] VITALS: BP 146/70
[2020-12-20 06:27] LABS: BASO % 0.7 % (0.0-1.0); EOS # 0.2 10*3/uL (0.0-0.4); EOS % 5.9 % (1.0-4.0); HEMATOCRIT 32.2 % (42.0-52.0); LYMPH # 1.1 10*3/uL (1.3-4.4); LYMPH % 35.8 % (27.0-41.0); MEAN CELL VOLUME 82.6 fl (80.0-94.0); MEAN CORPUSCULAR HGB 26.4 pg (27.0-31.0); MEAN PLATELET VOLUME 8.4 fl (9.6-12.3); MONO # 0.3 10*3/uL (0.1-1.0); MONO % 10.4 % (3.0-9.0); NEUT # 1.4 10*3/uL (2.3-7.9); NEUT % 46.9 % (47.0-73.0); PLATELET COUNT AUTOMATED 87 10*3/uL (130-400); RED CELL DISTRI WIDTH 18.1 % (0-14.5); WHITE BLOOD COUNT 3.1 10*3/uL (4.8-10.8)
[2020-12-20 06:32] LABS: BUN 18 mg/dl (7-24); CHLORIDE 104 mmol/L (98-107); CREATININE 1.33 mg/dL (0.70-1.30); POTASSIUM 3.6 mmol/L (3.5-5.1); SODIUM 138 mmol/L (136-145)
[2020-12-20 08:00] VITALS: BP 164/60
[2020-12-20 10:45] LABS: BILIRUBIN Negative (Negative); BLOOD Negative (Negative); CLARITY Clear (Clear); COLOR Yellow (Yellow); GLUCOSE Negative (Negative); KETONE Negative (Negative); LEUKO ESTERASE Negative (Negative); NITRITE Negative (Negative); SPECIFIC GRAVITY 1.015 (1.001-1.030); UROBILINOGEN 0.2 E.U./dl (0.0-1.0)
[2020-12-20 10:54] LABS: URINE AMPHETAMINES < 1000 (1000ng/ml); URINE BARBITURATES < 200 (200ng/ml); URINE BENZODIAZEPINES > 200 (200ng/ml); URINE CANNABINOIDS (THC) < 50 (50ng/ml); URINE COCAINE < 300 (300ng/ml); URINE METHADONE < 300 (300ng/ml); URINE OPIATES > 300 (300ng/ml)
[2020-12-20 11:06] LABS: URINE PHENCYCLIDINE < 25 (25ng/ml)
[2020-12-20 11:08] LABS: RBC 0-2 rbc/hpf (0-2)
[2020-12-20 12:00] VITALS: BP 158/58
[2020-12-20 16:00] VITALS: BP 145/56
[2020-12-20 20:18] VITALS: BP 141/74
[2020-12-21 00:08] VITALS: BP 175/73
[2020-12-21 07:55] LABS: BASO % 0.8 % (0.0-1.0); EOS # 0.1 10*3/uL (0.0-0.4); EOS % 5.6 % (1.0-4.0); HEMATOCRIT 32.1 % (42.0-52.0); LYMPH % 40.9 % (27.0-41.0); MEAN CELL VOLUME 82.1 fl (80.0-94.0); MEAN CORPUSCULAR HGB 26.9 pg (27.0-31.0); MEAN CORPUSCULAR HGB CONC 32.7 g/dl (33.0-37.0); MEAN PLATELET VOLUME 8.1 fl (9.6-12.3); MONO # 0.3 10*3/uL (0.1-1.0); MONO % 9.9 % (3.0-9.0); NEUT # 1.1 10*3/uL (2.3-7.9); NEUT % 42.4 % (47.0-73.0); PLATELET COUNT AUTOMATED 77 10*3/uL (130-400); RED BLOOD COUNT 3.91 10*6/uL (4.50-5.90); RED CELL DISTRI WIDTH 17.5 % (0-14.5); WHITE BLOOD COUNT 2.5 10*3/uL (4.8-10.8)
[2020-12-21 08:00] VITALS: BP 178/62
[2020-12-21 08:16] LABS: BUN 16 mg/dl (7-24); CHLORIDE 109 mmol/L (98-107); CREATININE 1.19 mg/dL (0.70-1.30); POTASSIUM 3.8 mmol/L (3.5-5.1); SODIUM 141 mmol/L (136-145)
[2020-12-21 12:00] VITALS: BP 109/54
[2020-12-21 15:50] VITALS: BP 124/70
[2020-12-21 16:00] VITALS: BP 124/62
[2020-12-21 20:00] VITALS: BP 134/68
[2020-12-22] VITALS: BP 169/76
[2020-12-22 08:08] VITALS: BP 151/70
[2020-12-22 08:28] VITALS: BP 146/66
[2020-12-22 09:01] LABS: BASO % 0.7 % (0.0-1.0); EOS # 0.1 10*3/uL (0.0-0.4); HEMATOCRIT 32.9 % (42.0-52.0); LYMPH # 1.3 10*3/uL (1.3-4.4); LYMPH % 44.6 % (27.0-41.0); MEAN CELL VOLUME 83.1 fl (80.0-94.0); MEAN CORPUSCULAR HGB CONC 32.5 g/dl (33.0-37.0); MEAN PLATELET VOLUME 8.4 fl (9.6-12.3); MONO # 0.3 10*3/uL (0.1-1.0); MONO % 11.1 % (3.0-9.0); NEUT # 1.1 10*3/uL (2.3-7.9); NEUT % 38.2 % (47.0-73.0); PLATELET COUNT AUTOMATED 82 10*3/uL (130-400); RED BLOOD COUNT 3.96 10*6/uL (4.50-5.90); RED CELL DISTRI WIDTH 17.3 % (0-14.5); WHITE BLOOD COUNT 2.8 10*3/uL (4.8-10.8)
[2020-12-22 09:35] LABS: BUN 17 mg/dl (7-24); CHLORIDE 108 mmol/L (98-107); CREATININE 1.19 mg/dL (0.70-1.30); POTASSIUM 3.6 mmol/L (3.5-5.1); SODIUM 141 mmol/L (136-145)
[2020-12-22 12:00] VITALS: BP 170/72
[2020-12-22 15:53] VITALS: BP 140/73
[2020-12-22 20:00] VITALS: BP 138/76
[2020-12-23 08:11] VITALS: BP 146/66
[2020-12-23 12:00] VITALS: BP 138/59
[2020-12-23] MEDS ORDERED: MUCUS RELIEF600 MG PO (12:48)
[2020-12-23] MEDS ORDERED: VITAMIN D350 MC2 PO (12:48)
== END 2020-12-23 16:43 | disposition home or self-care (01) | DRG 896 ==
LOC: ED 15:23 → EDHOLD 16:29 → 5E 16:29 → EDHOLD 17:11 → 5E 19:01
PROVIDERS: Emergency Medicine; Internal Medicine; ADMIT Student in an Organized Health Care Education/Training Program; ATTEND Student in an Organized Health Care Education/Training Program
PROC: BD1BYZZ Fluoroscopy of Mouth/Oropharynx using Other Contrast (ICD-10-PCS; principal; 2020-12-23)
DX: F10.230 Alcohol dependence with withdrawal, uncomplicated (principal); N17.0 Acute kidney failure with tubular necrosis; E87.1 Hypo-osmolality and hyponatremia; I13.0 Hypertensive heart and chronic kidney disease with heart failure and stage 1 through stage 4 chronic kidney disease, or unspecified chronic kidney disease; D64.9 Anemia, unspecified; E83.41 Hypermagnesemia; I50.9 Heart failure, unspecified; K21.9 Gastro-esophageal reflux disease without esophagitis; N18.32 Chronic kidney disease, stage 3b; D72.819 Decreased white blood cell count, unspecified; R73.9 Hyperglycemia, unspecified; F41.9 Anxiety disorder, unspecified; M10.9 Gout, unspecified; M17.0 Bilateral primary osteoarthritis of knee; J45.909 Unspecified asthma, uncomplicated; R13.10 Dysphagia, unspecified; Z88.5 Allergy status to narcotic agent; Z88.1 Allergy status to other antibiotic agents; Z88.8 Allergy status to other drugs, medicaments and biological substances; Z86.711 Personal history of pulmonary embolism; Z82.49 Family history of ischemic heart disease and other diseases of the circulatory system; Z82.5 Family history of asthma and other chronic lower respiratory diseases; Z79.899 Other long term (current) drug therapy

== ENCOUNTER 2021-05-27 01:46 | Emergency (ER) | payer MEDICARE ==
[~2021-05-27] VITALS: Ht 180.3 cm; Wt 93.0 kg
[~2021-05-27 01:46] MED LIST changes: +MUCUS RELIEF600 MG PO; +OXYCODONE HYDRO30 MG PO; +VITAMIN D350 MC2 PO
[2021-05-27 02:12] LABS: BASO # 0.1 10*3/uL (0.0-0.1); EOS # 0.3 10*3/uL (0.0-0.4); EOS % 4.4 % (1.0-4.0); HEMATOCRIT 37.2 % (42.0-52.0); LYMPH # 1.8 10*3/uL (1.3-4.4); LYMPH % 28.3 % (27.0-41.0); MEAN CELL VOLUME 79.3 fl (80.0-94.0); MEAN CORPUSCULAR HGB 26.7 pg (27.0-31.0); MEAN CORPUSCULAR HGB CONC 33.6 g/dl (33.0-37.0); MONO # 0.5 10*3/uL (0.1-1.0); MONO % 8.3 % (3.0-9.0); NEUT # 3.6 10*3/uL (2.3-7.9); NEUT % 57.4 % (47.0-73.0); PLATELET COUNT AUTOMATED 164 10*3/uL (130-400); RED BLOOD COUNT 4.69 10*6/uL (4.50-5.90); RED CELL DISTRI WIDTH 14.4 % (0-14.5); WHITE BLOOD COUNT 6.2 10*3/uL (4.8-10.8)
[2021-05-27 02:29] LABS: ALBUMIN 3.7 gm/dl (3.1-4.5); CREATININE 1.72 mg/dL (0.70-1.30); POTASSIUM 4.1 mmol/L (3.5-5.1); TOTAL PROTEIN 7.5 gm/dL (6.4-8.2)
== END 2021-05-27 04:12 | disposition left against medical advice (07) ==
LOC: ED 01:46
PROVIDERS: Internal Medicine
DX: F10.239 Alcohol dependence with withdrawal, unspecified (principal); E87.1 Hypo-osmolality and hyponatremia; D50.9 Iron deficiency anemia, unspecified; N18.32 Chronic kidney disease, stage 3b; R19.7 Diarrhea, unspecified; Z88.5 Allergy status to narcotic agent; Z88.8 Allergy status to other drugs, medicaments and biological substances; Z88.1 Allergy status to other antibiotic agents; Z79.899 Other long term (current) drug therapy; Z90.89 Acquired absence of other organs; Z98.890 Other specified postprocedural states; Y90.3 Blood alcohol level of 60-79 mg/100 ml

== ENCOUNTER 2021-07-13 21:15 | Emergency (ER) | payer MEDICARE ==
[~2021-07-13] VITALS: Ht 180.3 cm; Wt 95.3 kg
[2021-07-13 22:35] LABS: BASO % 0.3 % (0.0-1.0); EOS % 0.2 % (1.0-4.0); HEMATOCRIT 37.2 % (42.0-52.0); LYMPH % 8.5 % (27.0-41.0); MEAN CELL VOLUME 80.3 fl (80.0-94.0); MEAN CORPUSCULAR HGB 26.8 pg (27.0-31.0); MEAN CORPUSCULAR HGB CONC 33.3 g/dl (33.0-37.0); MEAN PLATELET VOLUME 7.9 fl (9.6-12.3); MONO # 0.4 10*3/uL (0.1-1.0); MONO % 3.4 % (3.0-9.0); NEUT # 10.2 10*3/uL (2.3-7.9); NEUT % 87.3 % (47.0-73.0); PLATELET COUNT AUTOMATED 184 10*3/uL (130-400); RED BLOOD COUNT 4.63 10*6/uL (4.50-5.90); RED CELL DISTRI WIDTH 14.3 % (0-14.5); WHITE BLOOD COUNT 11.7 10*3/uL (4.8-10.8)
[2021-07-13 23:06] LABS: ALBUMIN 4.1 gm/dl (3.1-4.5); ALKALINE PHOSPHATASE 96 U/L (45-117); BUN 22 mg/dl (7-24); CHLORIDE 103 mmol/L (98-107); CREATININE 1.77 mg/dL (0.70-1.30); POTASSIUM 3.9 mmol/L (3.5-5.1); SGOT/AST 14 IU/L (3-35); SGPT/ALT 21 U/L (12-78); SODIUM 134 mmol/L (136-145); TOTAL PROTEIN 8.2 gm/dL (6.4-8.2)
[2021-07-13 23:09] LABS: ETHYL ALCOHOL < 3.0 mg/dl (<3)
[2021-07-14] MEDS ORDERED: Orphenadrine C100 MG PO (00:40)
== END 2021-07-14 00:42 | disposition home or self-care (01) ==
LOC: ED 21:15
PROVIDERS: Emergency Medicine
DX: S39.012A Strain of muscle, fascia and tendon of lower back, initial encounter (principal); K21.9 Gastro-esophageal reflux disease without esophagitis; I11.0 Hypertensive heart disease with heart failure; I50.9 Heart failure, unspecified; J45.909 Unspecified asthma, uncomplicated; M10.9 Gout, unspecified; Z88.6 Allergy status to analgesic agent; Z88.1 Allergy status to other antibiotic agents; Z88.8 Allergy status to other drugs, medicaments and biological substances; Z79.899 Other long term (current) drug therapy; X58.XXXA Exposure to other specified factors, initial encounter; Y93.89 Activity, other specified; Y92.89 Other specified places as the place of occurrence of the external cause; Y99.8 Other external cause status

== ENCOUNTER 2021-11-17 04:09 | Inpatient (IN) | payer MEDICARE ==
[~2021-11-17] VITALS: Ht 180.3 cm; Wt 99.5 kg
[~2021-11-17 04:09] MED LIST changes: +Orphenadrine C100 MG PO
[2021-11-17 04:22] VITALS: BP 151/79
[2021-11-17 04:57] LABS: BASO % 0.8 % (0.0-1.0); EOS # 0.1 10*3/uL (0.0-0.4); EOS % 3.7 % (1.0-4.0); HEMATOCRIT 33.6 % (42.0-52.0); LYMPH % 27.5 % (27.0-41.0); MEAN CELL VOLUME 79.4 fl (80.0-94.0); MEAN CORPUSCULAR HGB 25.8 pg (27.0-31.0); MEAN CORPUSCULAR HGB CONC 32.4 g/dl (33.0-37.0); MEAN PLATELET VOLUME 8.2 fl (9.6-12.3); MONO # 0.3 10*3/uL (0.1-1.0); MONO % 9.1 % (3.0-9.0); NEUT # 2.2 10*3/uL (2.3-7.9); NEUT % 58.6 % (47.0-73.0); PLATELET COUNT AUTOMATED 132 10*3/uL (130-400); RED BLOOD COUNT 4.23 10*6/uL (4.50-5.90); RED CELL DISTRI WIDTH 15.8 % (0-14.5); WHITE BLOOD COUNT 3.7 10*3/uL (4.8-10.8)
[2021-11-17 05:14] LABS: BILIRUBIN Negative (Negative); BLOOD Negative (Negative); CLARITY Clear (Clear); COLOR Yellow (Yellow); GLUCOSE Negative (Negative); KETONE Negative (Negative); LEUKO ESTERASE Negative (Negative); NITRITE Negative (Negative); PH 5.5 (4.5-8.0); UROBILINOGEN 0.2 E.U./dl (0.0-1.0)
[2021-11-17 05:18] LABS: ALKALINE PHOSPHATASE 67 U/L (45-117); BUN 15 mg/dl (7-24); CHLORIDE 106 mmol/L (98-107); CREATININE 1.41 mg/dL (0.70-1.30); LIPASE 82 U/L (73-393); POTASSIUM 3.8 mmol/L (3.5-5.1); SGOT/AST 15 IU/L (3-35); SGPT/ALT 19 U/L (12-78); SODIUM 139 mmol/L (136-145); TOTAL PROTEIN 6.9 gm/dL (6.4-8.2)
[2021-11-17 05:25] LABS: URINE AMPHETAMINES < 1000 (1000ng/ml); URINE BARBITURATES < 200 (200ng/ml); URINE BENZODIAZEPINES < 200 (200ng/ml); URINE CANNABINOIDS (THC) < 50 (50ng/ml); URINE COCAINE < 300 (300ng/ml); URINE METHADONE < 300 (300ng/ml); URINE OPIATES > 300 (300ng/ml)
[2021-11-17 05:33] LABS: URINE PHENCYCLIDINE < 25 (25ng/ml)
[2021-11-17 05:43] LABS: BACTERIA TRACE; RBC 0-2 rbc/hpf (0-2)
[2021-11-17 07:15] VITALS: BP 180/76
[2021-11-17 12:38] VITALS: BP 151/79
[2021-11-17] MEDS ORDERED: ATIVAN2 M1 PO (13:04)
[2021-11-17] MEDS ORDERED: MIRALAX POWDER17 G1 PO (13:05)
[2021-11-17 16:00] VITALS: BP 175/71
[2021-11-17 20:00] VITALS: BP 155/79
[2021-11-18] VITALS: BP 141/69
[2021-11-18 08:00] VITALS: BP 133/69
[2021-11-18 16:00] VITALS: BP 135/56
[2021-11-18 20:00] VITALS: BP 150/73
[2021-11-19] VITALS: BP 166/73
[2021-11-19 08:00] VITALS: BP 179/84
[2021-11-19 12:00] VITALS: BP 170/78; BP 170/90
[2021-11-19 16:00] VITALS: BP 160/87
[2021-11-19 20:00] VITALS: BP 175/81
[2021-11-20] VITALS: BP 137/63
[2021-11-20 07:48] LABS: BUN 14 mg/dl (7-24); CHLORIDE 105 mmol/L (98-107); CREATININE 1.21 mg/dL (0.70-1.30); POTASSIUM 4.2 mmol/L (3.5-5.1); SODIUM 136 mmol/L (136-145)
[2021-11-20 08:08] VITALS: BP 158/76
== END 2021-11-20 14:42 | disposition home or self-care (01) | DRG 897 ==
LOC: ED 04:09 → 4E 10:56 → EDHOLD 10:56 → 4E 11:08
PROVIDERS: Internal Medicine; ADMIT Family Medicine; ATTEND Family Medicine
DX: F10.239 Alcohol dependence with withdrawal, unspecified (principal); I13.0 Hypertensive heart and chronic kidney disease with heart failure and stage 1 through stage 4 chronic kidney disease, or unspecified chronic kidney disease; I50.9 Heart failure, unspecified; K44.9 Diaphragmatic hernia without obstruction or gangrene; N18.31 Chronic kidney disease, stage 3a; K21.9 Gastro-esophageal reflux disease without esophagitis; J45.909 Unspecified asthma, uncomplicated; M1A.9XX0 Chronic gout, unspecified, without tophus (tophi); F41.9 Anxiety disorder, unspecified; G89.29 Other chronic pain; M25.561 Pain in right knee; M25.562 Pain in left knee; R00.1 Bradycardia, unspecified; D50.9 Iron deficiency anemia, unspecified; E83.41 Hypermagnesemia; R19.7 Diarrhea, unspecified; Z82.49 Family history of ischemic heart disease and other diseases of the circulatory system; Z88.5 Allergy status to narcotic agent; Z88.2 Allergy status to sulfonamides; Z88.8 Allergy status to other drugs, medicaments and biological substances; Z82.5 Family history of asthma and other chronic lower respiratory diseases; Z79.51 Long term (current) use of inhaled steroids

== ENCOUNTER 2021-12-03 03:04 | Emergency (ER) | payer MEDICARE ==
[~2021-12-03] VITALS: Ht 180.3 cm; Wt 99.8 kg
[~2021-12-03 03:04] MED LIST changes: +ATIVAN2 M1 PO; +MIRALAX POWDER17 G1 PO
[2021-12-03 03:27] LABS: BASO % 0.4 % (0.0-1.0); EOS # 0.2 10*3/uL (0.0-0.4); EOS % 2.3 % (1.0-4.0); HEMATOCRIT 36.9 % (42.0-52.0); LYMPH # 1.3 10*3/uL (1.3-4.4); LYMPH % 18.1 % (27.0-41.0); MEAN CELL VOLUME 75.9 fl (80.0-94.0); MEAN CORPUSCULAR HGB 25.7 pg (27.0-31.0); MEAN CORPUSCULAR HGB CONC 33.9 g/dl (33.0-37.0); MEAN PLATELET VOLUME 7.9 fl (9.6-12.3); MONO # 0.5 10*3/uL (0.1-1.0); MONO % 7.4 % (3.0-9.0); NEUT # 4.9 10*3/uL (2.3-7.9); NEUT % 71.7 % (47.0-73.0); PLATELET COUNT AUTOMATED 162 10*3/uL (130-400); RED BLOOD COUNT 4.86 10*6/uL (4.50-5.90); WHITE BLOOD COUNT 6.9 10*3/uL (4.8-10.8)
[2021-12-03 03:44] LABS: CREATININE 1.57 mg/dL (0.70-1.30); POTASSIUM 4.2 mmol/L (3.5-5.1)
[2021-12-03] MEDS ORDERED: ZOFRAN4 MG PO (04:47)
== END 2021-12-03 05:05 | disposition home or self-care (01) ==
LOC: ED 03:04
PROVIDERS: Internal Medicine
DX: K52.9 Noninfective gastroenteritis and colitis, unspecified (principal); Z88.1 Allergy status to other antibiotic agents; Z88.8 Allergy status to other drugs, medicaments and biological substances; Z79.899 Other long term (current) drug therapy; Z90.89 Acquired absence of other organs; Z98.890 Other specified postprocedural states

== ENCOUNTER 2022-01-07 04:10 | Inpatient (IN) | payer MEDICARE ==
[~2022-01-07] VITALS: Ht 180.3 cm; Wt 97.5 kg
[~2022-01-07 04:10] MED LIST changes: +ZOFRAN4 MG PO
[2022-01-07 04:20] VITALS: BP 155/92
[2022-01-07] MEDS ORDERED: METOCLOPRAMIDE10 M1 PO (04:22)
[2022-01-07 04:49] LABS: BASO # 0.1 10*3/uL (0.0-0.1); BASO % 0.9 % (0.0-1.0); EOS # 0.2 10*3/uL (0.0-0.4); EOS % 3.9 % (1.0-4.0); HEMATOCRIT 43.9 % (42.0-52.0); LYMPH # 1.5 10*3/uL (1.3-4.4); LYMPH % 27.1 % (27.0-41.0); MEAN CELL VOLUME 75.2 fl (80.0-94.0); MEAN CORPUSCULAR HGB 24.5 pg (27.0-31.0); MEAN CORPUSCULAR HGB CONC 32.6 g/dl (33.0-37.0); MEAN PLATELET VOLUME 8.1 fl (9.6-12.3); MONO # 0.5 10*3/uL (0.1-1.0); MONO % 9.6 % (3.0-9.0); NEUT # 3.2 10*3/uL (2.3-7.9); NEUT % 58.3 % (47.0-73.0); PLATELET COUNT AUTOMATED 186 10*3/uL (130-400); RED BLOOD COUNT 5.84 10*6/uL (4.50-5.90); RED CELL DISTRI WIDTH 14.3 % (0-14.5); WHITE BLOOD COUNT 5.4 10*3/uL (4.8-10.8)
[2022-01-07 05:04] LABS: CREATININE 1.55 mg/dL (0.70-1.30); POTASSIUM 3.3 mmol/L (3.5-5.1); TOTAL PROTEIN 8.4 gm/dL (6.4-8.2)
[2022-01-07 07:15] LABS: URINE BARBITURATES < 200 (200ng/ml); URINE CANNABINOIDS (THC) < 50 (50ng/ml); URINE METHADONE < 300 (300ng/ml); URINE OPIATES > 300 (300ng/ml)
[2022-01-07 07:18] LABS: URINE AMPHETAMINES < 1000 (1000ng/ml); URINE BENZODIAZEPINES > 200 (200ng/ml); URINE COCAINE < 300 (300ng/ml)
[2022-01-07 07:30] VITALS: BP 168/90
[2022-01-07 07:41] LABS: URINE PHENCYCLIDINE < 25 (25ng/ml)
[2022-01-07] MEDS ORDERED: OXYCODONE HYDRO15 MG PO (11:53)
[2022-01-07] MEDS ORDERED: ATIVAN1 MG PO (11:54)
[2022-01-07 12:00] VITALS: BP 169/89
[2022-01-07 16:15] VITALS: BP 135/70
[2022-01-07 17:58] VITALS: BP 179/88
[2022-01-07 20:00] VITALS: BP 151/79
[2022-01-08] VITALS: BP 177/73
[2022-01-08 06:14] LABS: BUN 18 mg/dl (7-24); CHLORIDE 108 mmol/L (98-107); CREATININE 1.31 mg/dL (0.70-1.30); SODIUM 137 mmol/L (136-145)
[2022-01-08 06:15] LABS: POTASSIUM 4.3 mmol/L (3.5-5.1)
[2022-01-08 06:23] LABS: BASO % 0.7 % (0.0-1.0); EOS # 0.2 10*3/uL (0.0-0.4); EOS % 4.7 % (1.0-4.0); HEMATOCRIT 35.6 % (42.0-52.0); LYMPH # 1.5 10*3/uL (1.3-4.4); MEAN CELL VOLUME 77.9 fl (80.0-94.0); MEAN CORPUSCULAR HGB 25.2 pg (27.0-31.0); MEAN CORPUSCULAR HGB CONC 32.3 g/dl (33.0-37.0); MEAN PLATELET VOLUME 8.8 fl (9.6-12.3); MONO # 0.4 10*3/uL (0.1-1.0); MONO % 8.8 % (3.0-9.0); NEUT # 2.1 10*3/uL (2.3-7.9); NEUT % 49.6 % (47.0-73.0); RED BLOOD COUNT 4.57 10*6/uL (4.50-5.90); RED CELL DISTRI WIDTH 14.3 % (0-14.5); WHITE BLOOD COUNT 4.2 10*3/uL (4.8-10.8)
[2022-01-08 06:25] LABS: PLATELET COUNT AUTOMATED 128 10*3/uL (130-400)
[2022-01-08 08:00] VITALS: BP 190/91
[2022-01-08 12:00] VITALS: BP 184/86
[2022-01-08 16:00] VITALS: BP 117/54
[2022-01-08 20:00] VITALS: BP 154/78
[2022-01-09] VITALS: BP 178/75
[2022-01-09 08:00] VITALS: BP 146/81
[2022-01-09 12:00] VITALS: BP 144/70
[2022-01-09 16:00] VITALS: BP 149/73
[2022-01-10] VITALS: BP 145/70
[2022-01-10 08:00] VITALS: BP 153/57
[2022-01-10] MEDS ORDERED: OXYCODONE HYDRO15 MG PO (10:20)
== END 2022-01-10 13:20 | disposition home or self-care (01) | DRG 897 ==
LOC: ED 04:10 → EDHOLD 05:37 → 4E 15:29
PROVIDERS: Emergency Medicine; Internal Medicine; ADMIT Internal Medicine; ATTEND Internal Medicine
DX: F10.230 Alcohol dependence with withdrawal, uncomplicated (principal); E87.1 Hypo-osmolality and hyponatremia; E83.41 Hypermagnesemia; K21.9 Gastro-esophageal reflux disease without esophagitis; J45.20 Mild intermittent asthma, uncomplicated; N18.30 Chronic kidney disease, stage 3 unspecified; E87.6 Hypokalemia; R73.9 Hyperglycemia, unspecified; M1A.9XX0 Chronic gout, unspecified, without tophus (tophi); I10 Essential (primary) hypertension; Z88.5 Allergy status to narcotic agent; Z88.1 Allergy status to other antibiotic agents; Z88.8 Allergy status to other drugs, medicaments and biological substances; Z79.899 Other long term (current) drug therapy

== ENCOUNTER 2022-02-22 02:18 | Emergency (ER) | payer MEDICARE ==
[~2022-02-22] VITALS: Ht 177.8 cm; Wt 90.7 kg
[~2022-02-22 02:18] MED LIST changes: +LACTULOSE20 GM/30 M PO; +METOCLOPRAMIDE10 M1 PO; +OXYCODONE HYDRO15 MG PO
== END 2022-02-22 03:34 | disposition left against medical advice (07) ==
LOC: ED 02:18
DX: K29.70 Gastritis, unspecified, without bleeding (principal); F41.9 Anxiety disorder, unspecified; J45.909 Unspecified asthma, uncomplicated; K21.9 Gastro-esophageal reflux disease without esophagitis; I13.0 Hypertensive heart and chronic kidney disease with heart failure and stage 1 through stage 4 chronic kidney disease, or unspecified chronic kidney disease; N18.30 Chronic kidney disease, stage 3 unspecified; I50.9 Heart failure, unspecified; M17.0 Bilateral primary osteoarthritis of knee; Z88.5 Allergy status to narcotic agent; Z88.8 Allergy status to other drugs, medicaments and biological substances; Z88.1 Allergy status to other antibiotic agents; Z79.899 Other long term (current) drug therapy; Z86.711 Personal history of pulmonary embolism; Z98.890 Other specified postprocedural states; Z90.89 Acquired absence of other organs

== ENCOUNTER 2022-03-25 09:47 | Inpatient (IN) | payer MEDICARE ==
[~2022-03-25] VITALS: Ht 180.3 cm; Wt 93.1 kg
[2022-03-25 09:54] VITALS: BP 168/68
[2022-03-25 10:20] LABS: BASO % 0.6 % (0.0-1.0); EOS # 0.3 10*3/uL (0.0-0.4); EOS % 5.9 % (1.0-4.0); HEMATOCRIT 37.7 % (42.0-52.0); LYMPH # 1.3 10*3/uL (1.3-4.4); LYMPH % 25.1 % (27.0-41.0); MEAN CELL VOLUME 73.1 fl (80.0-94.0); MEAN CORPUSCULAR HGB 23.1 pg (27.0-31.0); MEAN CORPUSCULAR HGB CONC 31.6 g/dl (33.0-37.0); MEAN PLATELET VOLUME 8.1 fl (9.6-12.3); MONO # 0.5 10*3/uL (0.1-1.0); MONO % 8.7 % (3.0-9.0); NEUT # 3.2 10*3/uL (2.3-7.9); NEUT % 59.5 % (47.0-73.0); PLATELET COUNT AUTOMATED 159 10*3/uL (130-400); RED BLOOD COUNT 5.16 10*6/uL (4.50-5.90); RED CELL DISTRI WIDTH 14.9 % (0-14.5); WHITE BLOOD COUNT 5.3 10*3/uL (4.8-10.8)
[2022-03-25 10:33] LABS: ACT PARTIAL THROMBO TIME 26.8 SECONDS (20.0-32.1)
[2022-03-25 10:37] LABS: ALKALINE PHOSPHATASE 111 U/L (45-117); BUN 25 mg/dl (7-24); CHLORIDE 104 mmol/L (98-107); CREATININE 1.41 mg/dL (0.70-1.30); LIPASE 164 U/L (73-393); POTASSIUM 4.3 mmol/L (3.5-5.1); SGOT/AST 26 IU/L (3-35); SGPT/ALT 71 U/L (12-78); SODIUM 137 mmol/L (136-145); TOTAL PROTEIN 7.7 gm/dL (6.4-8.2)
[2022-03-25 10:42] LABS: ETHYL ALCOHOL < 3.0 mg/dl (<3)
[2022-03-25 11:37] LABS: BILIRUBIN Negative (Negative); BLOOD Negative (Negative); CLARITY Clear (Clear); COLOR Yellow (Yellow); GLUCOSE Negative (Negative); KETONE Negative (Negative); LEUKO ESTERASE Negative (Negative); NITRITE Negative (Negative); PH 5.5 (4.5-8.0); SPECIFIC GRAVITY 1.015 (1.001-1.030); UROBILINOGEN 0.2 E.U./dl (0.0-1.0)
[2022-03-25 11:46] LABS: URINE AMPHETAMINES < 1000 (1000ng/ml); URINE BARBITURATES < 200 (200ng/ml); URINE BENZODIAZEPINES < 200 (200ng/ml); URINE CANNABINOIDS (THC) < 50 (50ng/ml); URINE COCAINE < 300 (300ng/ml); URINE METHADONE < 300 (300ng/ml); URINE OPIATES > 300 (300ng/ml)
[2022-03-25 11:56] LABS: URINE PHENCYCLIDINE < 25 (25ng/ml)
[2022-03-25 11:58] LABS: RBC 0-2 rbc/hpf (0-2); WBC 0-2 wbc/hpf (0-5)
[2022-03-25 12:20] VITALS: BP 171/87
[2022-03-25 16:00] VITALS: BP 188/90
[2022-03-25 20:00] VITALS: BP 174/79
[2022-03-26] VITALS: BP 152/55
[2022-03-26 06:40] LABS: BASO % 0.8 % (0.0-1.0); EOS # 0.2 10*3/uL (0.0-0.4); EOS % 3.3 % (1.0-4.0); HEMATOCRIT 35.2 % (42.0-52.0); LYMPH # 1.2 10*3/uL (1.3-4.4); LYMPH % 24.4 % (27.0-41.0); MEAN CELL VOLUME 74.4 fl (80.0-94.0); MEAN PLATELET VOLUME 8.5 fl (9.6-12.3); MONO # 0.4 10*3/uL (0.1-1.0); MONO % 8.6 % (3.0-9.0); NEUT # 3.1 10*3/uL (2.3-7.9); NEUT % 62.7 % (47.0-73.0); PLATELET COUNT AUTOMATED 163 10*3/uL (130-400); RED BLOOD COUNT 4.73 10*6/uL (4.50-5.90); WHITE BLOOD COUNT 4.9 10*3/uL (4.8-10.8)
[2022-03-26 07:34] LABS: CREATININE 1.42 mg/dL (0.70-1.30); POTASSIUM 3.8 mmol/L (3.5-5.1); TOTAL PROTEIN 7.1 gm/dL (6.4-8.2)
[2022-03-26 12:00] VITALS: BP 163/92
[2022-03-26 16:00] VITALS: BP 168/71
[2022-03-26 20:00] VITALS: BP 149/58
[2022-03-27] VITALS: BP 133/62
[2022-03-27 08:00] VITALS: BP 174/82
[2022-03-27] MEDS ORDERED: Flonase 0.05% 120 Me NAS (09:57)
[2022-03-27] MEDS ORDERED: ALLEGRA ALLERG180 M2 PO (09:57)
[2022-03-27] MEDS ORDERED: PHARMASSURE FO0.4 MG PO (09:57)
[2022-03-27] MEDS ORDERED: PEPCID20 MG PO (09:57)
[2022-03-27] MEDS ORDERED: THIAMINE HCL100 MG PO (09:57)
[2022-03-27 11:15] VITALS: BP 140/80
[2022-03-27 12:00] VITALS: BP 136/63
== END 2022-03-27 14:35 | disposition home or self-care (01) | DRG 896 ==
LOC: ED 09:47 → EDHOLD 10:04 → 4E 10:04 → 5E 03-26 22:21
PROVIDERS: Emergency Medicine; ADMIT Family Medicine; ATTEND Family Medicine
DX: F10.239 Alcohol dependence with withdrawal, unspecified (principal); N17.0 Acute kidney failure with tubular necrosis; K72.90 Hepatic failure, unspecified without coma; D50.9 Iron deficiency anemia, unspecified; E83.41 Hypermagnesemia; K21.9 Gastro-esophageal reflux disease without esophagitis; F41.9 Anxiety disorder, unspecified; I12.9 Hypertensive chronic kidney disease with stage 1 through stage 4 chronic kidney disease, or unspecified chronic kidney disease; N18.30 Chronic kidney disease, stage 3 unspecified; M17.0 Bilateral primary osteoarthritis of knee; J45.909 Unspecified asthma, uncomplicated; R73.9 Hyperglycemia, unspecified; F11.10 Opioid abuse, uncomplicated; Z88.6 Allergy status to analgesic agent; Z88.1 Allergy status to other antibiotic agents; Z86.711 Personal history of pulmonary embolism; Z88.8 Allergy status to other drugs, medicaments and biological substances; Z83.6 Family history of other diseases of the respiratory system; Z82.49 Family history of ischemic heart disease and other diseases of the circulatory system

== ENCOUNTER 2023-02-02 21:55 | Emergency (ER) | payer MEDICARE ==
[~2023-02-02] VITALS: Ht 180.3 cm; Wt 88.5 kg
[~2023-02-02 21:55] MED LIST changes: +ALLEGRA ALLERG180 M2 PO; +Flonase 0.05% 120 Me NAS; +PHARMASSURE FO0.4 MG PO; +THIAMINE HCL100 MG PO
[2023-02-02 22:56] LABS: BASO % 0.4 % (0.0-1.0); EOS # 0.1 10*3/uL (0.0-0.4); EOS % 2.6 % (1.0-4.0); HEMATOCRIT 35.4 % (42.0-52.0); LYMPH # 1.1 10*3/uL (1.3-4.4); LYMPH % 22.6 % (27.0-41.0); MEAN CELL VOLUME 71.1 fl (80.0-94.0); MEAN CORPUSCULAR HGB 23.1 pg (27.0-31.0); MEAN CORPUSCULAR HGB CONC 32.5 g/dl (33.0-37.0); MEAN PLATELET VOLUME 8.1 fl (9.6-12.3); MONO # 0.4 10*3/uL (0.1-1.0); MONO % 8.8 % (3.0-9.0); NEUT # 3.3 10*3/uL (2.3-7.9); NEUT % 65.4 % (47.0-73.0); PLATELET COUNT AUTOMATED 178 10*3/uL (130-400); RED BLOOD COUNT 4.98 10*6/uL (4.50-5.90); RED CELL DISTRI WIDTH 16.6 % (0-14.5)
[2023-02-02 23:17] LABS: ALKALINE PHOSPHATASE 108 U/L (46-116); BUN 17 mg/dl (9-23); CHLORIDE 98 mmol/L (98-107); LIPASE 32 U/L (12-53); POTASSIUM 4.6 mmol/L (3.4-5.1); SGPT/ALT 10 U/L (10-49); TOTAL PROTEIN 7.9 gm/dL (6.0-8.0)
[2023-02-02] MEDS ORDERED: PENICILLIN VK500 MG PO (23:47)
== END 2023-02-03 00:10 | disposition home or self-care (01) ==
LOC: ED 21:55
PROVIDERS: Internal Medicine
DX: K02.9 Dental caries, unspecified (principal); F41.9 Anxiety disorder, unspecified; K08.89 Other specified disorders of teeth and supporting structures; E87.1 Hypo-osmolality and hyponatremia; R19.7 Diarrhea, unspecified; R14.0 Abdominal distension (gaseous); I10 Essential (primary) hypertension; K21.9 Gastro-esophageal reflux disease without esophagitis; M19.90 Unspecified osteoarthritis, unspecified site; Z88.8 Allergy status to other drugs, medicaments and biological substances; Z90.89 Acquired absence of other organs; Z98.890 Other specified postprocedural states; F10.10 Alcohol abuse, uncomplicated

== ENCOUNTER 2023-04-14 02:34 | Emergency (ER) | payer MEDICARE ==
[~2023-04-14] VITALS: Ht 180.3 cm; Wt 98.0 kg
[~2023-04-14 02:34] MED LIST changes: +PENICILLIN VK500 MG PO
[2023-04-14 03:34] LABS: BASO # 0.1 10*3/uL (0.0-0.1); BASO % 0.8 % (0.0-1.0); EOS # 0.2 10*3/uL (0.0-0.4); EOS % 3.3 % (1.0-4.0); HEMATOCRIT 37.2 % (42.0-52.0); LYMPH # 1.5 10*3/uL (1.3-4.4); LYMPH % 24.3 % (27.0-41.0); MEAN CELL VOLUME 72.1 fl (80.0-94.0); MEAN CORPUSCULAR HGB 22.9 pg (27.0-31.0); MEAN CORPUSCULAR HGB CONC 31.7 g/dl (33.0-37.0); MONO # 0.5 10*3/uL (0.1-1.0); MONO % 8.1 % (3.0-9.0); NEUT # 3.8 10*3/uL (2.3-7.9); NEUT % 62.8 % (47.0-73.0); PLATELET COUNT AUTOMATED 150 10*3/uL (130-400); RED BLOOD COUNT 5.16 10*6/uL (4.50-5.90); RED CELL DISTRI WIDTH 15.1 % (0-14.5); WHITE BLOOD COUNT 6.1 10*3/uL (4.8-10.8)
[2023-04-14 03:39] LABS: BILIRUBIN Negative (Negative); BLOOD Negative (Negative); CLARITY Clear (Clear); COLOR Yellow (Yellow); GLUCOSE Negative (Negative); KETONE Negative (Negative); LEUKO ESTERASE Negative (Negative); NITRITE Negative (Negative); UROBILINOGEN 0.2 E.U./dl (0.0-1.0)
[2023-04-14 03:46] LABS: URINE AMPHETAMINES Negative (1000ng/ml); URINE BARBITURATES Negative (200ng/ml); URINE BENZODIAZEPINES Negative (200ng/ml); URINE CANNABINOIDS (THC) Negative (50ng/ml); URINE COCAINE Negative (300ng/ml); URINE METHADONE Negative (300ng/ml); URINE OPIATES Positive (300ng/ml); URINE PHENCYCLIDINE Negative (25ng/ml); WBC 0-2 wbc/hpf (0-5)
[2023-04-14 03:48] LABS: ACT PARTIAL THROMBO TIME 28.5 SECONDS (20.0-32.1); INTERNATIONAL NORM RATIO 1.1 (2.0-3.5)
[2023-04-14 03:58] LABS: POTASSIUM 4.3 mmol/L (3.4-5.1); TOTAL PROTEIN 7.6 gm/dL (6.0-8.0)
[2023-04-14 04:01] LABS: FREE T4 1.14 ng/dl (0.89-1.76)
== END 2023-04-14 04:20 | disposition home or self-care (01) ==
LOC: ED 02:34
PROVIDERS: Emergency Medicine
DX: R60.0 Localized edema (principal); K08.89 Other specified disorders of teeth and supporting structures; I10 Essential (primary) hypertension; K21.9 Gastro-esophageal reflux disease without esophagitis; M19.90 Unspecified osteoarthritis, unspecified site; Z88.5 Allergy status to narcotic agent; Z88.8 Allergy status to other drugs, medicaments and biological substances; Z90.89 Acquired absence of other organs; Z98.890 Other specified postprocedural states; F10.10 Alcohol abuse, uncomplicated; Z79.899 Other long term (current) drug therapy

== ENCOUNTER 2023-06-20 02:38 | Emergency (ER) | payer MEDICARE ==
[~2023-06-20] VITALS: Ht 180.3 cm; Wt 90.7 kg
[2023-06-20 03:20] LABS: BASO % 0.6 % (0.0-1.0); EOS # 0.3 10*3/uL (0.0-0.4); EOS % 5.4 % (1.0-4.0); HEMATOCRIT 32.9 % (42.0-52.0); LYMPH # 1.3 10*3/uL (1.3-4.4); LYMPH % 20.1 % (27.0-41.0); MEAN CELL VOLUME 71.8 fl (80.0-94.0); MEAN CORPUSCULAR HGB 23.1 pg (27.0-31.0); MEAN CORPUSCULAR HGB CONC 32.2 g/dl (33.0-37.0); MEAN PLATELET VOLUME 7.8 fl (9.6-12.3); MONO # 0.6 10*3/uL (0.1-1.0); MONO % 9.4 % (3.0-9.0); NEUT # 4.1 10*3/uL (2.3-7.9); NEUT % 64.2 % (47.0-73.0); PLATELET COUNT AUTOMATED 169 10*3/uL (130-400); RED BLOOD COUNT 4.58 10*6/uL (4.50-5.90); RED CELL DISTRI WIDTH 15.2 % (0-14.5); WHITE BLOOD COUNT 6.3 10*3/uL (4.8-10.8)
[2023-06-20 03:52] LABS: ALKALINE PHOSPHATASE 121 U/L (46-116); BUN 22 mg/dl (9-23); CHLORIDE 101 mmol/L (98-107); LIPASE 37 U/L (12-53); POTASSIUM 4.3 mmol/L (3.4-5.1); SGPT/ALT 11 U/L (5-49); TOTAL PROTEIN 7.1 gm/dL (6.0-8.0)
[2023-06-20 04:21] LABS: ETHYL ALCOHOL < 3.0 mg/dl (<3)
== END 2023-06-20 04:33 | disposition home or self-care (01) ==
LOC: ED 02:38
PROVIDERS: Internal Medicine
DX: K59.00 Constipation, unspecified (principal); I10 Essential (primary) hypertension; K21.9 Gastro-esophageal reflux disease without esophagitis; M19.90 Unspecified osteoarthritis, unspecified site; Z79.899 Other long term (current) drug therapy; Z88.5 Allergy status to narcotic agent; Z88.8 Allergy status to other drugs, medicaments and biological substances; Z98.890 Other specified postprocedural states; Z90.89 Acquired absence of other organs; F10.10 Alcohol abuse, uncomplicated

== ENCOUNTER 2023-07-31 02:03 | Emergency (ER) | payer MEDICARE ==
[~2023-07-31] VITALS: Ht 180.3 cm; Wt 97.5 kg
[2023-07-31 04:39] LABS: BASO # 0.1 10*3/uL (0.0-0.1); BASO % 0.8 % (0.0-1.0); EOS # 0.3 10*3/uL (0.0-0.4); EOS % 4.5 % (1.0-4.0); HEMATOCRIT 41.1 % (42.0-52.0); LYMPH # 1.2 10*3/uL (1.3-4.4); LYMPH % 19.6 % (27.0-41.0); MEAN CELL VOLUME 78.1 fl (80.0-94.0); MEAN CORPUSCULAR HGB 22.8 pg (27.0-31.0); MEAN CORPUSCULAR HGB CONC 29.2 g/dl (33.0-37.0); MEAN PLATELET VOLUME 7.9 fl (9.6-12.3); MONO # 0.4 10*3/uL (0.1-1.0); NEUT # 4.1 10*3/uL (2.3-7.9); NEUT % 67.6 % (47.0-73.0); PLATELET COUNT AUTOMATED 193 10*3/uL (130-400); RED BLOOD COUNT 5.26 10*6/uL (4.50-5.90); RED CELL DISTRI WIDTH 16.8 % (0-14.5)
[2023-07-31 04:56] LABS: POTASSIUM 4.6 mmol/L (3.4-5.1)
== END 2023-07-31 06:41 | disposition left against medical advice (07) ==
LOC: ED 02:03
PROVIDERS: Emergency Medicine
DX: J06.9 Acute upper respiratory infection, unspecified (principal); Z20.822 Contact with and (suspected) exposure to COVID-19; Z88.5 Allergy status to narcotic agent; Z88.8 Allergy status to other drugs, medicaments and biological substances; Z79.899 Other long term (current) drug therapy; Z90.89 Acquired absence of other organs

== ENCOUNTER 2023-11-14 00:02 | Emergency (ER) | payer MEDICARE ==
[~2023-11-14] VITALS: Ht 175.2 cm; Wt 96.2 kg
[2023-11-14 01:09] LABS: BASO # 0.1 10*3/uL (0.0-0.1); BASO % 0.7 % (0.0-1.0); EOS # 0.3 10*3/uL (0.0-0.4); EOS % 3.5 % (1.0-4.0); HEMATOCRIT 34.1 % (42.0-52.0); LYMPH # 1.3 10*3/uL (1.3-4.4); LYMPH % 14.3 % (27.0-41.0); MEAN CELL VOLUME 72.1 fl (80.0-94.0); MEAN CORPUSCULAR HGB 21.8 pg (27.0-31.0); MEAN CORPUSCULAR HGB CONC 30.2 g/dl (33.0-37.0); MONO # 0.5 10*3/uL (0.1-1.0); MONO % 5.4 % (3.0-9.0); NEUT # 6.8 10*3/uL (2.3-7.9); NEUT % 75.7 % (47.0-73.0); PLATELET COUNT AUTOMATED 244 10*3/uL (130-400); RED BLOOD COUNT 4.73 10*6/uL (4.50-5.90); RED CELL DISTRI WIDTH 15.6 % (0-14.5)
[2023-11-14 01:18] LABS: POTASSIUM 3.9 mmol/L (3.4-5.1)
[2023-11-14] MEDS ORDERED: Dicyclomine Hydrochloride 20 MG/10 ML OSYR PO STA (04:28)
[2023-11-14] MEDS ORDERED: Lidocaine Hydrochloride 15 ML UDC PO STA (04:28)
[2023-11-14] MEDS ORDERED: MG-AL HYDROXIDE/SIMETICONE 30 ML UDC PO STA (04:28)
[2023-11-14] MEDS ORDERED: predniSONE 20 MG TAB PO ONE (04:30)
[2023-11-14] MEDS ORDERED: PREDNISONE20 M1 PO (04:40)
== END 2023-11-14 04:58 | disposition home or self-care (01) ==
LOC: ED 00:02
PROVIDERS: Internal Medicine
DX: J40 Bronchitis, not specified as acute or chronic (principal); K21.9 Gastro-esophageal reflux disease without esophagitis; E87.1 Hypo-osmolality and hyponatremia; D50.9 Iron deficiency anemia, unspecified; R11.0 Nausea; R10.84 Generalized abdominal pain; I12.9 Hypertensive chronic kidney disease with stage 1 through stage 4 chronic kidney disease, or unspecified chronic kidney disease; N18.31 Chronic kidney disease, stage 3a; M19.90 Unspecified osteoarthritis, unspecified site; Z88.5 Allergy status to narcotic agent; Z88.8 Allergy status to other drugs, medicaments and biological substances; Z90.89 Acquired absence of other organs; Z98.890 Other specified postprocedural states; F10.10 Alcohol abuse, uncomplicated

== ENCOUNTER 2023-11-20 02:47 | Emergency (ER) | payer MEDICARE ==
[~2023-11-20] VITALS: Ht 180.3 cm; Wt 97.5 kg
[2023-11-20] MEDS ORDERED: hydrOXYzine pamoate 25 MG CAP PO ONE (03:30)
[2023-11-20] MEDS ORDERED: diphenhydrAMINE hydrochloride 50 MG/ML VIAL IM ONE (03:45)
[2023-11-20 03:47] LABS: BASO # 0.1 10*3/uL (0.0-0.1); BASO % 0.5 % (0.0-1.0); EOS # 0.2 10*3/uL (0.0-0.4); EOS % 1.7 % (1.0-4.0); HEMATOCRIT 35.1 % (42.0-52.0); MEAN CELL VOLUME 72.4 fl (80.0-94.0); MEAN CORPUSCULAR HGB 21.6 pg (27.0-31.0); MEAN CORPUSCULAR HGB CONC 29.9 g/dl (33.0-37.0); MEAN PLATELET VOLUME 7.9 fl (9.6-12.3); MONO # 0.7 10*3/uL (0.1-1.0); MONO % 6.7 % (3.0-9.0); NEUT # 7.7 10*3/uL (2.3-7.9); NEUT % 71.4 % (47.0-73.0); PLATELET COUNT AUTOMATED 224 10*3/uL (130-400); RED BLOOD COUNT 4.85 10*6/uL (4.50-5.90); RED CELL DISTRI WIDTH 15.6 % (0-14.5); WHITE BLOOD COUNT 10.8 10*3/uL (4.8-10.8)
[2023-11-20 04:04] LABS: ALKALINE PHOSPHATASE 113 U/L (46-116); BUN 19 mg/dl (9-23); CHLORIDE 103 mmol/L (98-107); POTASSIUM 4.1 mmol/L (3.4-5.1); SGPT/ALT 11 U/L (5-49)
[2023-11-20] MEDS ORDERED: GUAIFENESIN200 MG PO (04:28)
== END 2023-11-20 04:48 | disposition home or self-care (01) ==
LOC: ED 02:47
PROVIDERS: Internal Medicine
DX: F41.9 Anxiety disorder, unspecified (principal); R05.9 Cough, unspecified; I10 Essential (primary) hypertension; K21.9 Gastro-esophageal reflux disease without esophagitis; M19.90 Unspecified osteoarthritis, unspecified site; Z88.5 Allergy status to narcotic agent; Z88.8 Allergy status to other drugs, medicaments and biological substances; Z98.890 Other specified postprocedural states; Z90.89 Acquired absence of other organs; F10.10 Alcohol abuse, uncomplicated

== ENCOUNTER 2023-11-25 15:23 | Emergency (ER) | payer MEDICARE ==
[~2023-11-25] VITALS: Ht 180.3 cm; Wt 97.5 kg
[~2023-11-25 15:23] MED LIST changes: +GUAIFENESIN200 MG PO
[2023-11-25 16:08] LABS: BASO % 0.4 % (0.0-1.0); EOS # 0.2 10*3/uL (0.0-0.4); EOS % 2.4 % (1.0-4.0); HEMATOCRIT 35.2 % (42.0-52.0); LYMPH # 0.9 10*3/uL (1.3-4.4); LYMPH % 10.3 % (27.0-41.0); MEAN CELL VOLUME 73.3 fl (80.0-94.0); MEAN CORPUSCULAR HGB 21.7 pg (27.0-31.0); MEAN CORPUSCULAR HGB CONC 29.5 g/dl (33.0-37.0); MONO # 0.5 10*3/uL (0.1-1.0); MONO % 5.7 % (3.0-9.0); NEUT # 6.8 10*3/uL (2.3-7.9); PLATELET COUNT AUTOMATED 196 10*3/uL (130-400); RED CELL DISTRI WIDTH 15.9 % (0-14.5); WHITE BLOOD COUNT 8.4 10*3/uL (4.8-10.8)
[2023-11-25] MEDS ORDERED: ACETAMINOPHEN 325 MG TAB PO ONE (16:25)
[2023-11-25 16:33] LABS: BUN 14 mg/dl (9-23); CHLORIDE 104 mmol/L (98-107); POTASSIUM 3.9 mmol/L (3.4-5.1)
[2023-11-25 16:34] LABS: ETHYL ALCOHOL < 3.0 mg/dl (<3)
[2023-11-25] MEDS ORDERED: Acetaminophen/Oxycodone 5 MG/325 MG TABLET PO ONE (17:05)
== END 2023-11-25 17:26 | disposition home or self-care (01) ==
LOC: ED 15:23
PROVIDERS: Emergency Medicine
DX: F32.A Depression, unspecified (principal); K21.9 Gastro-esophageal reflux disease without esophagitis; Z88.5 Allergy status to narcotic agent; Z88.8 Allergy status to other drugs, medicaments and biological substances; Z90.89 Acquired absence of other organs; Z98.890 Other specified postprocedural states; F10.10 Alcohol abuse, uncomplicated

== ENCOUNTER 2023-12-03 05:21 | Emergency (ER) | payer MEDICARE ==
[2023-12-03] MEDS ORDERED: LORazepam 1 MG TAB PO ONE (06:45)
[2023-12-03] MEDS ORDERED: Albuterol Sulf/Ipratropium 3 ML VIAL NEB ONE (06:45)
[2023-12-03] MEDS ORDERED: GUAIFENESIN200 MG PO (08:04)
== END 2023-12-03 08:26 | disposition home or self-care (01) ==
LOC: ED 05:21
DX: R05.9 Cough, unspecified (principal); I10 Essential (primary) hypertension; K21.9 Gastro-esophageal reflux disease without esophagitis; M19.90 Unspecified osteoarthritis, unspecified site; Z88.5 Allergy status to narcotic agent; Z88.8 Allergy status to other drugs, medicaments and biological substances; Z90.89 Acquired absence of other organs; Z98.890 Other specified postprocedural states; F10.10 Alcohol abuse, uncomplicated

== ENCOUNTER 2024-01-18 16:48 | Emergency (ER) | payer MEDICARE ==
[~2024-01-18] VITALS: Wt 95.3 kg
[2024-01-18] MEDS ORDERED: LORAZEPAM0.5 M1 PO (17:12)
[2024-01-18 17:30] LABS: BASO % 0.4 % (0.0-1.0); EOS # 0.3 10*3/uL (0.0-0.4); HEMATOCRIT 34.3 % (42.0-52.0); LYMPH # 1.4 10*3/uL (1.3-4.4); LYMPH % 27.7 % (27.0-41.0); MEAN CELL VOLUME 69.3 fl (80.0-94.0); MEAN CORPUSCULAR HGB 20.8 pg (27.0-31.0); MEAN PLATELET VOLUME 7.9 fl (9.6-12.3); MONO # 0.4 10*3/uL (0.1-1.0); MONO % 8.6 % (3.0-9.0); NEUT # 2.8 10*3/uL (2.3-7.9); NEUT % 57.1 % (47.0-73.0); PLATELET COUNT AUTOMATED 174 10*3/uL (130-400); RED BLOOD COUNT 4.95 10*6/uL (4.50-5.90); RED CELL DISTRI WIDTH 15.5 % (0-14.5)
[2024-01-18 17:45] LABS: BILIRUBIN Negative (Negative); BLOOD Negative (Negative); CLARITY Clear (Clear); COLOR Yellow (Yellow); GLUCOSE Negative (Negative); KETONE Negative (Negative); LEUKO ESTERASE Negative (Negative); NITRITE Negative (Negative); SPECIFIC GRAVITY 1.015 (1.001-1.030); UROBILINOGEN 0.2 E.U./dl (0.0-1.0)
[2024-01-18 17:52] LABS: ALKALINE PHOSPHATASE 112 U/L (46-116); BUN 11 mg/dl (9-23); CHLORIDE 104 mmol/L (98-107); LIPASE 38 U/L (12-53); POTASSIUM 3.7 mmol/L (3.4-5.1); SGPT/ALT 9 U/L (5-49); TOTAL PROTEIN 7.1 gm/dL (6.0-8.0)
[2024-01-18 18:06] LABS: MUCOUS TRACE
[2024-01-18 18:07] LABS: HYALINE CAST 0-2
[2024-01-18] MEDS ORDERED: Ondansetron4 MG PO (18:53)
== END 2024-01-18 18:57 | disposition home or self-care (01) ==
LOC: ED 16:48
PROVIDERS: Physician Assistant Medical
DX: K56.7 Ileus, unspecified (principal); I10 Essential (primary) hypertension; K21.9 Gastro-esophageal reflux disease without esophagitis; M19.90 Unspecified osteoarthritis, unspecified site; F10.10 Alcohol abuse, uncomplicated; Z88.5 Allergy status to narcotic agent; Z88.8 Allergy status to other drugs, medicaments and biological substances; Z90.89 Acquired absence of other organs; Z98.890 Other specified postprocedural states

== ENCOUNTER 2024-01-22 21:58 | Emergency (ER) | payer MEDICARE ==
[~2024-01-22] VITALS: Ht 154.9 cm; Wt 95.3 kg
[~2024-01-22 21:58] MED LIST changes: +LORAZEPAM0.5 M1 PO; +Ondansetron4 MG PO
[2024-01-22 22:41] LABS: BASO % 0.9 % (0.0-1.0); EOS # 0.4 10*3/uL (0.0-0.4); EOS % 8.6 % (1.0-4.0); HEMATOCRIT 31.7 % (42.0-52.0); LYMPH # 1.3 10*3/uL (1.3-4.4); LYMPH % 27.3 % (27.0-41.0); MEAN CELL VOLUME 68.6 fl (80.0-94.0); MEAN CORPUSCULAR HGB 21.2 pg (27.0-31.0); MEAN CORPUSCULAR HGB CONC 30.9 g/dl (33.0-37.0); MEAN PLATELET VOLUME 8.3 fl (9.6-12.3); MONO # 0.5 10*3/uL (0.1-1.0); MONO % 9.7 % (3.0-9.0); NEUT # 2.5 10*3/uL (2.3-7.9); NEUT % 53.3 % (47.0-73.0); PLATELET COUNT AUTOMATED 144 10*3/uL (130-400); RED BLOOD COUNT 4.62 10*6/uL (4.50-5.90); RED CELL DISTRI WIDTH 15.9 % (0-14.5); WHITE BLOOD COUNT 4.7 10*3/uL (4.8-10.8)
[2024-01-22 23:02] LABS: POTASSIUM 3.9 mmol/L (3.4-5.1); TOTAL PROTEIN 6.7 gm/dL (6.0-8.0)
== END 2024-01-23 02:19 | disposition left against medical advice (07) ==
LOC: ED 21:58
PROVIDERS: Internal Medicine
DX: R10.84 Generalized abdominal pain (principal); D50.9 Iron deficiency anemia, unspecified; I12.9 Hypertensive chronic kidney disease with stage 1 through stage 4 chronic kidney disease, or unspecified chronic kidney disease; N18.31 Chronic kidney disease, stage 3a; K21.9 Gastro-esophageal reflux disease without esophagitis; M19.90 Unspecified osteoarthritis, unspecified site; Z53.29 Procedure and treatment not carried out because of patient's decision for other reasons; F10.10 Alcohol abuse, uncomplicated; Z88.5 Allergy status to narcotic agent; Z88.8 Allergy status to other drugs, medicaments and biological substances; Z90.89 Acquired absence of other organs; Z98.890 Other specified postprocedural states

== ENCOUNTER 2024-02-05 08:44 | Emergency (ER) | payer MEDICARE ==
[~2024-02-05] VITALS: Ht 180.3 cm; Wt 113.4 kg
[2024-02-05 09:32] LABS: BASO % 0.9 % (0.0-1.0); EOS # 0.1 10*3/uL (0.0-0.4); EOS % 3.5 % (1.0-4.0); HEMATOCRIT 35.5 % (42.0-52.0); LYMPH % 28.8 % (27.0-41.0); MEAN CELL VOLUME 70.6 fl (80.0-94.0); MEAN CORPUSCULAR HGB 21.1 pg (27.0-31.0); MEAN CORPUSCULAR HGB CONC 29.9 g/dl (33.0-37.0); MEAN PLATELET VOLUME 8.3 fl (9.6-12.3); MONO # 0.4 10*3/uL (0.1-1.0); NEUT # 1.9 10*3/uL (2.3-7.9); NEUT % 55.5 % (47.0-73.0); PLATELET COUNT AUTOMATED 179 10*3/uL (130-400); RED BLOOD COUNT 5.03 10*6/uL (4.50-5.90); RED CELL DISTRI WIDTH 16.9 % (0-14.5); WHITE BLOOD COUNT 3.4 10*3/uL (4.8-10.8)
[2024-02-05 09:48] LABS: ALKALINE PHOSPHATASE 98 U/L (46-116); BUN 9 mg/dl (9-23); CHLORIDE 106 mmol/L (98-107); LIPASE 36 U/L (12-53); POTASSIUM 3.8 mmol/L (3.4-5.1); SGPT/ALT 8 U/L (5-49); TOTAL PROTEIN 7.3 gm/dL (6.0-8.0)
[2024-02-05] MEDS ORDERED: MOVANTIK25 MG PO (09:57)
[2024-02-05] MEDS ORDERED: Methylnaltrexone Bromide 12 MG/0.6 ML VIAL SC ONE (10:10)
== END 2024-02-05 10:35 | disposition home or self-care (01) ==
LOC: ED 08:44
PROVIDERS: Internal Medicine
DX: K59.03 Drug induced constipation (principal); T40.2X5A Adverse effect of other opioids, initial encounter; R06.02 Shortness of breath; R05.9 Cough, unspecified; R07.89 Other chest pain; Z88.5 Allergy status to narcotic agent; Z88.8 Allergy status to other drugs, medicaments and biological substances; Z79.899 Other long term (current) drug therapy; Z90.89 Acquired absence of other organs; Z98.890 Other specified postprocedural states; Y92.89 Other specified places as the place of occurrence of the external cause

== ENCOUNTER 2024-02-20 22:41 | Emergency (ER) | payer MEDICARE ==
[~2024-02-20 22:41] MED LIST changes: +MOVANTIK25 MG PO
== END 2024-02-21 01:50 | disposition left against medical advice (07) ==
LOC: ED 22:41
DX: R61 Generalized hyperhidrosis (principal); F41.9 Anxiety disorder, unspecified; R05.8 Other specified cough; Z88.5 Allergy status to narcotic agent; Z88.8 Allergy status to other drugs, medicaments and biological substances; Z53.21 Procedure and treatment not carried out due to patient leaving prior to being seen by health care provider

== ENCOUNTER 2024-02-21 07:40 | Emergency (ER) | payer MEDICARE | END 2024-02-21 08:05 | disposition left against medical advice (07) | LOC: ED 07:40 | DX: R05.9 Cough, unspecified (principal); R09.3 Abnormal sputum; Z53.21 Procedure and treatment not carried out due to patient leaving prior to being seen by health care provider ==

== ENCOUNTER 2024-02-23 07:24 | Emergency (ER) | payer MEDICARE ==
[~2024-02-23] VITALS: Ht 180.3 cm; Wt 90.7 kg
[2024-02-23] MEDS ORDERED: PROTONIX20 MG PO (07:52)
[2024-02-23] MEDS ORDERED: OXYCODONE HYDRO15 MG PO (07:52)
[2024-02-23] MEDS ORDERED: AMOXICILLIN500 M2 PO (07:53)
[2024-02-23] MEDS ORDERED: OXYGEN NAS (07:55)
[2024-02-23] MEDS ORDERED: OXYCODONE HCL (IR) 10 MG TABLET PO ONE (08:20)
[2024-02-23] MEDS ORDERED: Methylnaltrexone Bromide 12 MG/0.6 ML VIAL SC ONE (08:20)
[2024-02-23] MEDS ORDERED: OXYCODONE HCL (IR) 5 MG TAB PO ONE (08:25)
[2024-02-23] MEDS ORDERED: OXYCODONE HCL (IR) 5 MG TAB PO SCH (08:45)
[2024-02-23 09:01] LABS: ALKALINE PHOSPHATASE 111 U/L (46-116); BUN 11 mg/dl (9-23); CHLORIDE 106 mmol/L (98-107); LIPASE 30 U/L (12-53); POTASSIUM 3.8 mmol/L (3.4-5.1); SGPT/ALT 13 U/L (5-49); TOTAL PROTEIN 6.9 gm/dL (6.0-8.0)
[2024-02-23 09:04] LABS: BILIRUBIN Negative (Negative); BLOOD Negative (Negative); CLARITY Clear (Clear); COLOR Yellow (Yellow); GLUCOSE Negative (Negative); KETONE Negative (Negative); LEUKO ESTERASE Negative (Negative); NITRITE Negative (Negative); SPECIFIC GRAVITY <= 1.005 (1.001-1.030); UROBILINOGEN 0.2 E.U./dl (0.0-1.0)
[2024-02-23 09:13] LABS: BASO % 1.3 % (0.0-1.0); EOS # 0.3 10*3/uL (0.0-0.4); EOS % 10.3 % (1.0-4.0); HEMATOCRIT 37.3 % (42.0-52.0); LYMPH # 1.1 10*3/uL (1.3-4.4); LYMPH % 36.5 % (27.0-41.0); MEAN CELL VOLUME 71.3 fl (80.0-94.0); MEAN CORPUSCULAR HGB 21.6 pg (27.0-31.0); MEAN CORPUSCULAR HGB CONC 30.3 g/dl (33.0-37.0); MEAN PLATELET VOLUME 8.3 fl (9.6-12.3); MONO # 0.3 10*3/uL (0.1-1.0); NEUT # 1.2 10*3/uL (2.3-7.9); NEUT % 40.9 % (47.0-73.0); PLATELET COUNT AUTOMATED 183 10*3/uL (130-400); RED BLOOD COUNT 5.23 10*6/uL (4.50-5.90); RED CELL DISTRI WIDTH 17.4 % (0-14.5)
[2024-02-23 09:31] LABS: EPITHELIAL CELLS 0-2
[2024-02-23] MEDS ORDERED: COLACE 2-IN-11 EACH PO (09:46)
== END 2024-02-23 10:00 | disposition home or self-care (01) ==
LOC: ED 07:24
PROVIDERS: Emergency Medicine
DX: K59.00 Constipation, unspecified (principal); M25.562 Pain in left knee; F41.9 Anxiety disorder, unspecified; I10 Essential (primary) hypertension; K21.9 Gastro-esophageal reflux disease without esophagitis; M19.90 Unspecified osteoarthritis, unspecified site; F10.10 Alcohol abuse, uncomplicated; Z88.5 Allergy status to narcotic agent; Z88.8 Allergy status to other drugs, medicaments and biological substances; Z90.89 Acquired absence of other organs; Z98.890 Other specified postprocedural states

== ENCOUNTER 2024-02-27 05:48 | Emergency (ER) | payer MEDICARE ==
[~2024-02-27] VITALS: Ht 180.3 cm; Wt 93.0 kg
[~2024-02-27 05:48] MED LIST changes: +AMOXICILLIN500 M2 PO; +COLACE 2-IN-11 EACH PO; +OXYGEN NAS; +PROTONIX20 MG PO
[2024-02-27] MEDS ORDERED: OXYCODONE HCL (IR) 10 MG TABLET PO ONE (06:15)
[2024-02-27] MEDS ORDERED: Ondansetron Hydrochloride 4 MG TAB SL ONE (06:15)
== END 2024-02-27 07:42 | disposition home or self-care (01) ==
LOC: ED 05:48
DX: G89.29 Other chronic pain (principal); R10.84 Generalized abdominal pain; M25.562 Pain in left knee; I10 Essential (primary) hypertension; K21.9 Gastro-esophageal reflux disease without esophagitis; M19.90 Unspecified osteoarthritis, unspecified site; F10.10 Alcohol abuse, uncomplicated; Z88.5 Allergy status to narcotic agent; Z88.8 Allergy status to other drugs, medicaments and biological substances; Z90.89 Acquired absence of other organs; Z98.890 Other specified postprocedural states

== ENCOUNTER 2024-04-07 21:44 | Inpatient (IN) | payer MEDICARE ==
[~2024-04-07] VITALS: Ht 180.3 cm; Wt 92.1 kg
[~2024-04-07 21:44] MED LIST changes: +ASPIRIN ADULT L81 M2 PO
[2024-04-07 22:00] VITALS: BP 167/83
[2024-04-07] MEDS ORDERED: LORazepam 2 MG/ML VIAL IV ONE (22:10)
[2024-04-07] MEDS ORDERED: Ondansetron Hydrochloride 4 MG/2 ML VIAL IV ONE (22:15)
[2024-04-07 22:39] LABS: BASO % 0.6 % (0.0-1.0); EOS # 0.1 10*3/uL (0.0-0.4); EOS % 1.3 % (1.0-4.0); HEMATOCRIT 38.4 % (42.0-52.0); LYMPH % 16.7 % (27.0-41.0); MEAN CELL VOLUME 70.7 fl (80.0-94.0); MEAN CORPUSCULAR HGB 21.9 pg (27.0-31.0); MONO # 0.5 10*3/uL (0.1-1.0); MONO % 8.1 % (3.0-9.0); NEUT # 4.5 10*3/uL (2.3-7.9); PLATELET COUNT AUTOMATED 187 10*3/uL (130-400); RED BLOOD COUNT 5.43 10*6/uL (4.50-5.90); RED CELL DISTRI WIDTH 16.8 % (0-14.5); WHITE BLOOD COUNT 6.2 10*3/uL (4.8-10.8)
[2024-04-07] MEDS ORDERED: Thiamine 200 MG/2 ML VIAL IV ONE (22:45)
[2024-04-07 22:53] LABS: ACT PARTIAL THROMBO TIME 25.5 SECONDS (20.0-32.1)
[2024-04-07 23:01] LABS: ALKALINE PHOSPHATASE 116 U/L (46-116); BUN 17 mg/dl (9-23); CHLORIDE 103 mmol/L (98-107); CPK 93 U/L (34-171); ETHYL ALCOHOL 51.5 mg/dl (<3); POTASSIUM 4.1 mmol/L (3.4-5.1); SGPT/ALT 150 U/L (5-49); TOTAL PROTEIN 6.9 gm/dL (6.0-8.0)
[2024-04-08 00:24] LABS: BILIRUBIN Negative (Negative); BLOOD Negative (Negative); CLARITY Clear (Clear); COLOR Yellow (Yellow); GLUCOSE Negative (Negative); KETONE Negative (Negative); LEUKO ESTERASE Negative (Negative); NITRITE Negative (Negative); PH 6.5 (4.5-8.0); UROBILINOGEN 0.2 E.U./dl (0.0-1.0)
[2024-04-08 00:31] LABS: URINE AMPHETAMINES Negative (1000ng/ml); URINE BARBITURATES Negative (200ng/ml); URINE BENZODIAZEPINES Negative (200ng/ml); URINE CANNABINOIDS (THC) Negative (50ng/ml); URINE COCAINE Negative (300ng/ml); URINE METHADONE Negative (300ng/ml); URINE OPIATES Negative (300ng/ml); URINE PHENCYCLIDINE Negative (25ng/ml)
[2024-04-08] MEDS ORDERED: DIAZEPAM 10 MG/2 ML SYR IV ONE (00:35)
[2024-04-08 00:38] LABS: WBC 0-2 wbc/hpf (0-5)
[2024-04-08] MEDS ORDERED: MORPHINE Sulfate 2 MG/ML SYR IV PRN (01:25)
[2024-04-08] MEDS ORDERED: Ondansetron Hydrochloride 4 MG/2 ML VIAL IV PRN (01:25)
[2024-04-08] MEDS ORDERED: Water, Sterile 10 ML VIAL IV PRN (01:30)
[2024-04-08] MEDS ORDERED: METHOCARBAMOL 750 MG TAB PO PRN (01:30)
[2024-04-08] MEDS ORDERED: BISACODYL 10 MG SUPP R PRN (01:30)
[2024-04-08] MEDS ORDERED: MG-AL HYDROXIDE/SIMETICONE 30 ML UDC PO PRN (01:30)
[2024-04-08] MEDS ORDERED: LORazepam 2 MG/ML VIAL IV PRN (01:30)
[2024-04-08] MEDS ORDERED: Dicyclomine Hydrochloride 20 MG TAB PO PRN (01:30)
[2024-04-08] MEDS ORDERED: Sennosides A and B 8.6 MG TAB PO PRN (01:30)
[2024-04-08 02:09] VITALS: BP 158/73
[2024-04-08] MEDS ORDERED: LORazepam 1 MG TAB PO SCH (04:00)
[2024-04-08 06:39] VITALS: BP 157/79
[2024-04-08 07:12] LABS: BASO % 0.6 % (0.0-1.0); EOS # 0.1 10*3/uL (0.0-0.4); EOS % 2.4 % (1.0-4.0); LYMPH # 1.6 10*3/uL (1.3-4.4); LYMPH % 28.8 % (27.0-41.0); MEAN CELL VOLUME 70.5 fl (80.0-94.0); MEAN CORPUSCULAR HGB 22.5 pg (27.0-31.0); MEAN CORPUSCULAR HGB CONC 31.9 g/dl (33.0-37.0); MEAN PLATELET VOLUME 8.2 fl (9.6-12.3); MONO # 0.5 10*3/uL (0.1-1.0); MONO % 9.1 % (3.0-9.0); NEUT # 3.2 10*3/uL (2.3-7.9); NEUT % 58.7 % (47.0-73.0); PLATELET COUNT AUTOMATED 159 10*3/uL (130-400); RED BLOOD COUNT 5.25 10*6/uL (4.50-5.90); RED CELL DISTRI WIDTH 17.4 % (0-14.5); WHITE BLOOD COUNT 5.4 10*3/uL (4.8-10.8)
[2024-04-08 07:36] VITALS: BP 156/79
[2024-04-08 08:42] LABS: BUN 19 mg/dl (9-23); CHLORIDE 104 mmol/L (98-107); POTASSIUM 4.3 mmol/L (3.4-5.1)
[2024-04-08] MEDS ORDERED: MULTIVITAMIN 1 TAB TAB PO SCH (10:00)
[2024-04-08] MEDS ORDERED: Thiamine 200 MG/2 ML VIAL IV SCH (10:00)
[2024-04-08] MEDS ORDERED: FOLIC ACID 1 MG TAB PO SCH (10:00)
[2024-04-08] MEDS ORDERED: Thiamine 100 MG TAB PO SCH (10:00)
[2024-04-08] MEDS ORDERED: Enoxaparin Sodium 40 MG/0.4 ML SYR SC SCH (10:00)
[2024-04-08] MEDS ORDERED: Albuterol Sulf/Ipratropium 3 ML VIAL NEB PRN (11:00)
[2024-04-08 11:38] VITALS: BP 119/57
[2024-04-08 14:50] VITALS: BP 136/51
[2024-04-08 20:00] VITALS: BP 158/64
[2024-04-08] MEDS ORDERED: DICLOFENAC SODIUM 100 GM TUBE T SCH (22:00)
[2024-04-08] MEDS ORDERED: Thiamine 200 MG/2 ML VIAL IV ONE (22:30)
[2024-04-09] VITALS (9 sets, daily range): BP systolic 140–170; BP diastolic 59–88
[2024-04-09 05:59] LABS: ALKALINE PHOSPHATASE 107 U/L (46-116); BUN 13 mg/dl (9-23); CHLORIDE 105 mmol/L (98-107); POTASSIUM 4.2 mmol/L (3.4-5.1); SGPT/ALT 103 U/L (5-49); TOTAL PROTEIN 6.3 gm/dL (6.0-8.0)
[2024-04-09 06:07] LABS: BASO % 0.8 % (0.0-1.0); EOS # 0.2 10*3/uL (0.0-0.4); EOS % 3.6 % (1.0-4.0); HEMATOCRIT 38.1 % (42.0-52.0); LYMPH # 1.1 10*3/uL (1.3-4.4); LYMPH % 22.2 % (27.0-41.0); MEAN CELL VOLUME 71.1 fl (80.0-94.0); MEAN CORPUSCULAR HGB 22.2 pg (27.0-31.0); MEAN CORPUSCULAR HGB CONC 31.2 g/dl (33.0-37.0); MEAN PLATELET VOLUME 8.4 fl (9.6-12.3); MONO # 0.4 10*3/uL (0.1-1.0); MONO % 8.1 % (3.0-9.0); NEUT # 3.2 10*3/uL (2.3-7.9); NEUT % 64.9 % (47.0-73.0); PLATELET COUNT AUTOMATED 157 10*3/uL (130-400); RED BLOOD COUNT 5.36 10*6/uL (4.50-5.90); RED CELL DISTRI WIDTH 17.2 % (0-14.5)
[2024-04-09] MEDS ORDERED: Pantoprazole Sodium 20 MG TAB PO SCH (07:30)
[2024-04-09] MEDS ORDERED: LORazepam 1 MG TAB PO SCH ×2 (08:00)
[2024-04-09] MEDS ORDERED: ASPIRIN ENTERIC COATED 81 MG TAB PO SCH (10:00)
[2024-04-09] MEDS ORDERED: amLODIPine besylate 5 MG TAB PO SCH (10:00)
[2024-04-09] MEDS ORDERED: FUROSEMIDE 40 MG TAB PO SCH (10:00)
[2024-04-09] MEDS ORDERED: OXYCODONE HCL (IR) 5 MG TAB PO SCH (14:00)
[2024-04-09] MEDS ORDERED: cloNIDine Hydrochloride 0.1 MG TAB PO ONE (15:30)
[2024-04-10] VITALS: BP 142/72
[2024-04-10] MEDS ORDERED: LORazepam 1 MG TAB PO PRN
[2024-04-10 05:50] LABS: ALKALINE PHOSPHATASE 109 U/L (46-116); BUN 13 mg/dl (9-23); CHLORIDE 104 mmol/L (98-107); POTASSIUM 4.1 mmol/L (3.4-5.1); SGPT/ALT 67 U/L (5-49); TOTAL PROTEIN 6.3 gm/dL (6.0-8.0)
[2024-04-10 08:00] VITALS: BP 182/80
[2024-04-10] MEDS ORDERED: MED. FROM HOME 1 EACH EA PO SCH (10:00)
[2024-04-10 11:07] VITALS: BP 162/80
[2024-04-10 16:00] VITALS: BP 122/52
[2024-04-10] MEDS ORDERED: Sertraline Hydrochloride 50 MG TAB PO SCH (16:15)
[2024-04-10 20:00] VITALS: BP 154/80
[2024-04-10] MEDS ORDERED: ZOLPIDEM TARTRATE 10 MG TAB PO PRN (22:00)
[2024-04-11] VITALS: BP 157/74
[2024-04-11 08:00] VITALS: BP 204/80
[2024-04-11 09:35] VITALS: BP 164/70
[2024-04-11] MEDS ORDERED: cloNIDine Hydrochloride 0.1 MG TAB PO ONE (09:45)
[2024-04-11 11:20] VITALS: BP 128/51
[2024-04-11 15:14] VITALS: BP 136/69
[2024-04-11 20:00] VITALS: BP 143/76
[2024-04-12] VITALS: BP 176/69; BP 96/66
[2024-04-12 01:10] VITALS: BP 166/67
[2024-04-12 07:20] LABS: ALKALINE PHOSPHATASE 115 U/L (46-116); BUN 15 mg/dl (9-23); CHLORIDE 104 mmol/L (98-107); POTASSIUM 4.2 mmol/L (3.4-5.1); SGPT/ALT 36 U/L (5-49); TOTAL PROTEIN 6.3 gm/dL (6.0-8.0)
[2024-04-12 08:00] VITALS: BP 200/92
[2024-04-12] MEDS ORDERED: amLODIPine besylate 5 MG TAB PO SCH (10:00)
[2024-04-12] MEDS ORDERED: cloNIDine Hydrochloride 0.1 MG TAB PO ONE (11:40)
[2024-04-12 12:00] VITALS: BP 145/57; BP 160/60
[2024-04-12 16:00] VITALS: BP 137/78
[2024-04-12 20:00] VITALS: BP 141/76
[2024-04-13] VITALS: BP 160/80
[2024-04-13 05:37] LABS: BUN 18 mg/dl (9-23); CHLORIDE 100 mmol/L (98-107); POTASSIUM 3.9 mmol/L (3.4-5.1)
[2024-04-13 06:02] LABS: BASO % 0.7 % (0.0-1.0); EOS # 0.2 10*3/uL (0.0-0.4); EOS % 3.4 % (1.0-4.0); HEMATOCRIT 36.2 % (42.0-52.0); LYMPH # 1.5 10*3/uL (1.3-4.4); LYMPH % 25.7 % (27.0-41.0); MEAN CELL VOLUME 71.4 fl (80.0-94.0); MEAN CORPUSCULAR HGB 21.7 pg (27.0-31.0); MEAN CORPUSCULAR HGB CONC 30.4 g/dl (33.0-37.0); MEAN PLATELET VOLUME 8.3 fl (9.6-12.3); MONO # 0.5 10*3/uL (0.1-1.0); MONO % 8.4 % (3.0-9.0); NEUT # 3.6 10*3/uL (2.3-7.9); NEUT % 61.6 % (47.0-73.0); PLATELET COUNT AUTOMATED 142 10*3/uL (130-400); RED BLOOD COUNT 5.07 10*6/uL (4.50-5.90); RED CELL DISTRI WIDTH 16.7 % (0-14.5); WHITE BLOOD COUNT 5.8 10*3/uL (4.8-10.8)
[2024-04-13 08:00] VITALS: BP 180/73
[2024-04-13] MEDS ORDERED: Losartan Potassium 25 MG TAB PO SCH (10:00)
[2024-04-13 12:00] VITALS: BP 123/57
[2024-04-13 16:00] VITALS: BP 143/67
[2024-04-13 20:00] VITALS: BP 128/65
[2024-04-13] MEDS ORDERED: Mirtazapine 15 MG TAB PO SCH (21:00)
[2024-04-14] VITALS: BP 130/71
[2024-04-14 08:00] VITALS: BP 152/75
[2024-04-14 12:00] VITALS: BP 150/61
[2024-04-14] MEDS ORDERED: NATURE'S BLEND F1 MG PO (12:32)
[2024-04-14] MEDS ORDERED: TAB-A-VITE TA400 MCG PO (12:32)
[2024-04-14] MEDS ORDERED: NATURE'S BLEND100 M2 PO (12:32)
[2024-04-14] MEDS ORDERED: MIRTAZAPINE15 M2 PO (12:32)
[2024-04-14] MEDS ORDERED: MOVANTIK25 MG PO (12:32)
[2024-04-14] MEDS ORDERED: LOSARTAN POTASS25 M1 PO (12:32)
== END 2024-04-14 14:59 | disposition home or self-care (01) | DRG 896 ==
LOC: ED 21:44 → EDHOLD 04-08 00:59 → 4E 04-08 00:59
PROVIDERS: Internal Medicine; Nurse Practitioner; Student in an Organized Health Care Education/Training Program; ADMIT Internal Medicine; ATTEND Internal Medicine
DX: F10.932 Alcohol use, unspecified with withdrawal with perceptual disturbance (principal); N17.0 Acute kidney failure with tubular necrosis; E87.1 Hypo-osmolality and hyponatremia; I13.0 Hypertensive heart and chronic kidney disease with heart failure and stage 1 through stage 4 chronic kidney disease, or unspecified chronic kidney disease; I50.32 Chronic diastolic (congestive) heart failure; F33.2 Major depressive disorder, recurrent severe without psychotic features; K21.9 Gastro-esophageal reflux disease without esophagitis; M10.9 Gout, unspecified; F41.9 Anxiety disorder, unspecified; J45.909 Unspecified asthma, uncomplicated; G89.29 Other chronic pain; M25.562 Pain in left knee; M25.561 Pain in right knee; M17.0 Bilateral primary osteoarthritis of knee; R73.9 Hyperglycemia, unspecified; R74.01 Elevation of levels of liver transaminase levels; D50.9 Iron deficiency anemia, unspecified; N18.31 Chronic kidney disease, stage 3a; E55.9 Vitamin D deficiency, unspecified; G47.00 Insomnia, unspecified; F41.1 Generalized anxiety disorder; Z88.6 Allergy status to analgesic agent; Z88.8 Allergy status to other drugs, medicaments and biological substances; Z82.49 Family history of ischemic heart disease and other diseases of the circulatory system; Z83.6 Family history of other diseases of the respiratory system

== ENCOUNTER 2024-05-20 00:32 | Inpatient (IN) | payer MEDICARE ==
[~2024-05-20] VITALS: Ht 180.3 cm; Wt 98.4 kg
[~2024-05-20 00:32] MED LIST changes: +LOSARTAN POTASS25 M1 PO; +MIRTAZAPINE15 M2 PO; +NATURE'S BLEND100 M2 PO; +TAB-A-VITE TA400 MCG PO
[2024-05-20 02:30] VITALS: BP 169/62
[2024-05-20 03:46] LABS: BASO % 0.8 % (0.0-1.0); EOS # 0.3 10*3/uL (0.0-0.4); EOS % 8.1 % (1.0-4.0); LYMPH # 0.9 10*3/uL (1.3-4.4); LYMPH % 23.8 % (27.0-41.0); MEAN CELL VOLUME 71.4 fl (80.0-94.0); MEAN CORPUSCULAR HGB 22.1 pg (27.0-31.0); MEAN CORPUSCULAR HGB CONC 30.9 g/dl (33.0-37.0); MEAN PLATELET VOLUME 8.2 fl (9.6-12.3); MONO # 0.3 10*3/uL (0.1-1.0); MONO % 8.9 % (3.0-9.0); NEUT # 2.2 10*3/uL (2.3-7.9); NEUT % 58.1 % (47.0-73.0); PLATELET COUNT AUTOMATED 150 10*3/uL (130-400); RED BLOOD COUNT 4.76 10*6/uL (4.50-5.90); RED CELL DISTRI WIDTH 16.1 % (0-14.5); WHITE BLOOD COUNT 3.8 10*3/uL (4.8-10.8)
[2024-05-20 04:48] LABS: BILIRUBIN Negative (Negative); BLOOD Negative (Negative); CLARITY Clear (Clear); COLOR Yellow (Yellow); GLUCOSE Negative (Negative); KETONE Negative (Negative); LEUKO ESTERASE Negative (Negative); NITRITE Negative (Negative); PH 6.5 (4.5-8.0); UROBILINOGEN 0.2 E.U./dl (0.0-1.0)
[2024-05-20 05:13] LABS: URINE AMPHETAMINES Negative (1000ng/ml); URINE BARBITURATES Negative (200ng/ml); URINE BENZODIAZEPINES Negative (200ng/ml); URINE CANNABINOIDS (THC) Negative (50ng/ml); URINE COCAINE Negative (300ng/ml); URINE METHADONE Negative (300ng/ml); URINE OPIATES Positive (300ng/ml); URINE PHENCYCLIDINE Negative (25ng/ml)
[2024-05-20 05:15] LABS: WBC 0-2 wbc/hpf (0-5)
[2024-05-20] MEDS ORDERED: SODIUM CHLORIDE 0.9% 1,000 ML IV ONE (05:45)
[2024-05-20] MEDS ORDERED: Thiamine 200 MG/2 ML VIAL IV ONE (05:45)
[2024-05-20] MEDS ORDERED: LORazepam 2 MG/ML VIAL IV ONE (05:45)
[2024-05-20] MEDS ORDERED: MG-AL HYDROXIDE/SIMETICONE 30 ML UDC PO PRN (05:55)
[2024-05-20] MEDS ORDERED: Loperamide Hydrochloride 2 MG CAP PO PRN ×2 (05:55)
[2024-05-20] MEDS ORDERED: Ondansetron Hydrochloride 4 MG TAB PO PRN (05:55)
[2024-05-20] MEDS ORDERED: LORazepam 2 MG/ML VIAL IV PRN (05:55)
[2024-05-20] MEDS ORDERED: Ondansetron Hydrochloride 4 MG/2 ML VIAL IV PRN (05:55)
[2024-05-20] MEDS ORDERED: Nicotine 21 MG PATCH T PRN (05:55)
[2024-05-20] MEDS ORDERED: NICOTINE POLACRILEX 4 MG GUM PO PRN (05:55)
[2024-05-20] MEDS ORDERED: ACETAMINOPHEN 500 MG TAB PO PRN (05:55)
[2024-05-20] MEDS ORDERED: Water, Sterile 10 ML VIAL IV PRN (05:55)
[2024-05-20] MEDS ORDERED: Sennosides A and B 8.6 MG TAB PO PRN (05:55)
[2024-05-20] MEDS ORDERED: BISACODYL 10 MG SUPP R PRN (05:55)
[2024-05-20] MEDS ORDERED: IBUPROFEN 600 MG TAB PO PRN (05:55)
[2024-05-20] MEDS ORDERED: LORazepam 1 MG TAB PO SCH (08:00)
[2024-05-20] MEDS ORDERED: FOLIC ACID 1 MG TAB PO SCH (10:00)
[2024-05-20] MEDS ORDERED: MULTIVITAMIN 1 TAB TAB PO SCH (10:00)
[2024-05-20] MEDS ORDERED: HEPARIN SODIUM 5,000 UNIT/ML VIAL SC SCH (10:00)
[2024-05-20] MEDS ORDERED: Thiamine 100 MG TAB PO SCH (10:00)
[2024-05-20] MEDS ORDERED: OXYCODONE HCL (IR) 5 MG TAB PO SCH ×2 (14:00→20:00)
[2024-05-20 17:13] VITALS: BP 158/76
[2024-05-20 18:00] VITALS: BP 166/78
[2024-05-20 20:00] VITALS: BP 170/84; BP 171/82
[2024-05-20] MEDS ORDERED: Mirtazapine 15 MG TAB PO SCH (21:00)
[2024-05-20] MEDS ORDERED: MED. FROM HOME 1 EACH EA PO SCH ×2 (22:16→22:30)
[2024-05-20] MEDS ORDERED: FLONASE ALLERG9.9 ML NAS (22:22)
[2024-05-20 22:30] VITALS: BP 172/80
[2024-05-20] MEDS ORDERED: FLUTICASONE PROPIONATE Nasal 16 Gm spray NAS SCH (22:33)
[2024-05-21] VITALS: BP 163/82
[2024-05-21] MEDS ORDERED: LORazepam 1 MG TAB PO SCH ×2 (04:00)
[2024-05-21 06:35] LABS: BASO % 0.5 % (0.0-1.0); EOS # 0.3 10*3/uL (0.0-0.4); EOS % 6.8 % (1.0-4.0); HEMATOCRIT 34.6 % (42.0-52.0); LYMPH # 0.9 10*3/uL (1.3-4.4); MEAN CELL VOLUME 72.4 fl (80.0-94.0); MEAN CORPUSCULAR HGB 21.8 pg (27.0-31.0); MEAN CORPUSCULAR HGB CONC 30.1 g/dl (33.0-37.0); MEAN PLATELET VOLUME 8.3 fl (9.6-12.3); MONO # 0.3 10*3/uL (0.1-1.0); MONO % 7.3 % (3.0-9.0); NEUT # 2.5 10*3/uL (2.3-7.9); NEUT % 62.9 % (47.0-73.0); PLATELET COUNT AUTOMATED 162 10*3/uL (130-400); RED BLOOD COUNT 4.78 10*6/uL (4.50-5.90); RED CELL DISTRI WIDTH 16.4 % (0-14.5)
[2024-05-21 06:50] LABS: ALKALINE PHOSPHATASE 87 U/L (46-116); BUN 9 mg/dl (9-23); CHLORIDE 108 mmol/L (98-107); POTASSIUM 3.8 mmol/L (3.4-5.1); TOTAL PROTEIN 6.3 gm/dL (6.0-8.0)
[2024-05-21 06:56] LABS: SGPT/ALT < 7 U/L (5-49)
[2024-05-21 08:00] VITALS: BP 177/82
[2024-05-21] MEDS ORDERED: Pantoprazole Sodium 20 MG TAB PO SCH (10:00)
[2024-05-21] MEDS ORDERED: Losartan Potassium 25 MG TAB PO SCH (10:00)
[2024-05-21] MEDS ORDERED: MED. FROM HOME 1 EACH EA PO SCH (10:00)
[2024-05-21] MEDS ORDERED: ASPIRIN ENTERIC COATED 81 MG TAB PO SCH (10:00)
[2024-05-21] MEDS ORDERED: FUROSEMIDE 40 MG TAB PO SCH (10:00)
[2024-05-21] MEDS ORDERED: NALOXEGOL OXALATE 25 MG PO SCH (10:00)
[2024-05-21 12:00] VITALS: BP 170/69
[2024-05-21 16:00] VITALS: BP 157/70
[2024-05-21 20:00] VITALS: BP 153/66
[2024-05-22] VITALS: BP 157/70
[2024-05-22] MEDS ORDERED: LORazepam 1 MG TAB PO PRN
[2024-05-22 05:11] LABS: ALKALINE PHOSPHATASE 92 U/L (46-116); BUN 11 mg/dl (9-23); CHLORIDE 108 mmol/L (98-107); POTASSIUM 3.8 mmol/L (3.4-5.1); TOTAL PROTEIN 6.6 gm/dL (6.0-8.0)
[2024-05-22 05:12] LABS: SGPT/ALT < 7 U/L (5-49)
[2024-05-22 06:15] LABS: BASO % 0.8 % (0.0-1.0); EOS # 0.2 10*3/uL (0.0-0.4); EOS % 6.8 % (1.0-4.0); HEMATOCRIT 36.8 % (42.0-52.0); LYMPH # 1.1 10*3/uL (1.3-4.4); LYMPH % 31.6 % (27.0-41.0); MEAN CELL VOLUME 71.2 fl (80.0-94.0); MEAN CORPUSCULAR HGB 22.1 pg (27.0-31.0); MEAN PLATELET VOLUME 8.3 fl (9.6-12.3); MONO # 0.3 10*3/uL (0.1-1.0); NEUT # 1.8 10*3/uL (2.3-7.9); NEUT % 51.5 % (47.0-73.0); PLATELET COUNT AUTOMATED 166 10*3/uL (130-400); RED BLOOD COUNT 5.17 10*6/uL (4.50-5.90); RED CELL DISTRI WIDTH 16.6 % (0-14.5); WHITE BLOOD COUNT 3.5 10*3/uL (4.8-10.8)
[2024-05-22 08:00] VITALS: BP 188/83
[2024-05-22] MEDS ORDERED: Capsaicin 0.075% Cream 57 GM TUBE T SCH (10:00)
[2024-05-22] MEDS ORDERED: Losartan Potassium 50 MG TAB PO SCH (10:00)
[2024-05-22] MEDS ORDERED: GABAPENTIN 100 MG CAP PO SCH (10:00)
[2024-05-22] MEDS ORDERED: PREGABALIN 25 MG CAP PO SCH (10:00)
[2024-05-22 12:00] VITALS: BP 172/92
[2024-05-22 14:27] VITALS: BP 122/67
[2024-05-22 20:00] VITALS: BP 169/79
[2024-05-23] VITALS: BP 186/84
[2024-05-23 08:00] VITALS: BP 194/91
[2024-05-23] MEDS ORDERED: cloNIDine Hydrochloride 0.1 MG TAB PO ONE (09:25)
[2024-05-23] MEDS ORDERED: PREGABALIN 25 MG CAP PO ONE (09:50)
[2024-05-23] MEDS ORDERED: PREGABALIN 50 MG CAP PO SCH (10:00)
[2024-05-23 12:00] VITALS: BP 145/78
[2024-05-23] MEDS ORDERED: OXYCODONE HCL (IR) 5 MG TAB PO SCH (12:00)
[2024-05-23] MEDS ORDERED: PREGABALIN50 MG PO (14:14)
[2024-05-23] MEDS ORDERED: LOSARTAN POTASS50 M1 PO (14:14)
[2024-05-23 16:00] VITALS: BP 130/60
== END 2024-05-23 18:05 | disposition home or self-care (01) | DRG 683 ==
LOC: ED 00:32 → 4E 05:46 → EDHOLD 05:46 → 4E 16:36
PROVIDERS: Emergency Medicine; ADMIT Student in an Organized Health Care Education/Training Program; ATTEND Student in an Organized Health Care Education/Training Program
DX: N17.0 Acute kidney failure with tubular necrosis (principal); E87.1 Hypo-osmolality and hyponatremia; I13.0 Hypertensive heart and chronic kidney disease with heart failure and stage 1 through stage 4 chronic kidney disease, or unspecified chronic kidney disease; F10.130 Alcohol abuse with withdrawal, uncomplicated; I50.9 Heart failure, unspecified; D50.9 Iron deficiency anemia, unspecified; K21.9 Gastro-esophageal reflux disease without esophagitis; F41.9 Anxiety disorder, unspecified; M10.9 Gout, unspecified; N18.30 Chronic kidney disease, stage 3 unspecified; D72.819 Decreased white blood cell count, unspecified; E55.9 Vitamin D deficiency, unspecified; Y90.9 Presence of alcohol in blood, level not specified; J44.9 Chronic obstructive pulmonary disease, unspecified; M17.0 Bilateral primary osteoarthritis of knee; G62.9 Polyneuropathy, unspecified; R73.9 Hyperglycemia, unspecified; Z82.49 Family history of ischemic heart disease and other diseases of the circulatory system; Z83.6 Family history of other diseases of the respiratory system; Z81.8 Family history of other mental and behavioral disorders; Z88.8 Allergy status to other drugs, medicaments and biological substances; Z88.5 Allergy status to narcotic agent; Z82.5 Family history of asthma and other chronic lower respiratory diseases; Z79.82 Long term (current) use of aspirin; Z79.899 Other long term (current) drug therapy

== ENCOUNTER 2024-08-04 03:13 | Emergency (ER) | payer MEDICARE ==
[~2024-08-04] VITALS: Ht 180.3 cm; Wt 99.8 kg
[~2024-08-04 03:13] MED LIST changes: +LOSARTAN POTASS50 M1 PO; +PREGABALIN50 MG PO
[2024-08-04 03:50] LABS: BASO % 0.6 % (0.0-1.0); EOS # 0.3 10*3/uL (0.0-0.4); HEMATOCRIT 33.7 % (42.0-52.0); MEAN CELL VOLUME 70.5 fl (80.0-94.0); MEAN CORPUSCULAR HGB 21.1 pg (27.0-31.0); MEAN PLATELET VOLUME 8.1 fl (9.6-12.3); MONO # 0.7 10*3/uL (0.1-1.0); MONO % 9.9 % (3.0-9.0); NEUT # 4.6 10*3/uL (2.3-7.9); NEUT % 66.4 % (47.0-73.0); PLATELET COUNT AUTOMATED 152 10*3/uL (130-400); RED BLOOD COUNT 4.78 10*6/uL (4.50-5.90); RED CELL DISTRI WIDTH 15.4 % (0-14.5); WHITE BLOOD COUNT 6.9 10*3/uL (4.8-10.8)
[2024-08-04 04:15] LABS: ETHYL ALCOHOL 3.7 mg/dl (<3); POTASSIUM 4.4 mmol/L (3.4-5.1)
== END 2024-08-04 04:34 | disposition left against medical advice (07) ==
LOC: ED 03:13
PROVIDERS: Internal Medicine
DX: R10.9 Unspecified abdominal pain (principal); F41.9 Anxiety disorder, unspecified; Z53.29 Procedure and treatment not carried out because of patient's decision for other reasons; I10 Essential (primary) hypertension; K21.9 Gastro-esophageal reflux disease without esophagitis; M19.90 Unspecified osteoarthritis, unspecified site; F10.10 Alcohol abuse, uncomplicated; Z79.899 Other long term (current) drug therapy; Z88.5 Allergy status to narcotic agent; Z88.8 Allergy status to other drugs, medicaments and biological substances; Z90.89 Acquired absence of other organs; Z98.890 Other specified postprocedural states

== ENCOUNTER 2025-05-13 01:15 | Emergency (ER) | payer MEDICARE ==
[~2025-05-13] VITALS: Ht 180.3 cm; Wt 104.3 kg
[~2025-05-13 01:15] MED LIST changes: +CEFUROXIME AXE500 MG PO; +KLOR-CON 1010 ME1 PO; +LASIX20 MG PO; +LASIX40 MG PO; +LISINOPRIL5 MG PO; +MAPAP EXTRA ST500 MG PO; +PULMICORT RESP0.5 M1 INH; +VENT7GM INH; +VOLTAREN ARTHRI20 GM T
[2025-05-13] MEDS ORDERED: LORazepam 1 MG TAB PO ONE (01:40)
[2025-05-13 02:08] LABS: BASO # 0.0 10*3/uL (0.0-0.1); BASO % 0.4 % (0.0-1.0); EOS # 0.1 10*3/uL (0.0-0.4); EOS % 1.6 % (1.0-4.0); MEAN CELL VOLUME 66.7 fl (80.0-94.0); MEAN CORPUSCULAR HGB 19.9 pg (27.0-31.0); MEAN PLATELET VOLUME 8.0 fl (9.6-12.3); MONO # 0.5 10*3/uL (0.1-1.0); MONO % 7.1 % (3.0-9.0); NEUT # 5.2 10*3/uL (2.3-7.9); NEUT % 75.1 % (47.0-73.0); NUCLEATED RED BLOOD CELL 0.0 % (0.0-0.0); NUCLEATED RED BLOOD CELL 0.0 10*3/uL (0.0-0.0); PLATELET COUNT AUTOMATED 204 10*3/uL (130-400); RED CELL DISTRI WIDTH 16.6 % (0-14.5)
== END 2025-05-13 02:42 | disposition home or self-care (01) ==
LOC: ED 01:15
PROVIDERS: Internal Medicine
DX: M70.22 Olecranon bursitis, left elbow (principal); F41.9 Anxiety disorder, unspecified; D50.9 Iron deficiency anemia, unspecified; I10 Essential (primary) hypertension; K21.9 Gastro-esophageal reflux disease without esophagitis; M19.90 Unspecified osteoarthritis, unspecified site; Z90.89 Acquired absence of other organs; Z98.890 Other specified postprocedural states; Z88.5 Allergy status to narcotic agent; Z88.8 Allergy status to other drugs, medicaments and biological substances; Y93.89 Activity, other specified